=== PATIENT | male | born 1965 | race Caucasian/White ===

== ENCOUNTER → 2020-12-15 13:04 | Outpatient (BNV) | payer MEDICAID, OTHER, SELFPAY | PROVIDERS: PCP Family Medicine; Referring Provider Family Medicine; Visit Provider Internal Medicine Medical Oncology | DX: I26.99 Other pulmonary embolism without acute cor pulmonale (principal) | CPT/HCPCS: 99203; 99213; 99214 ==

== ENCOUNTER 2021-10-18 10:32 | Outpatient (REF) | payer MEDICARE, MEDICAID, SELFPAY ==
--- NOTE | ~2021-10-18 | XR_ITS ---
EXAMINATION: XR CHEST CLINICAL INFORMATION: Right sided chest pain with history of PE COMPARISON: 12/05/2017 TECHNIQUE: 2 views of the chest were obtained. FINDINGS: Lungs are hypoinflated. There is new linear atelectasis is seen in the right midlung. A subtle infiltrate in this region cannot be entirely excluded. The left lung is clear. Heart size normal. No pleural effusions. XR/XR chest 2V IMPRESSION: Right midlung atelectasis with possible subtle infiltrate.
--- NOTE | ~2021-10-18 | NM_ITS ---
EXAMINATION: PULMONARY PERFUSION STUDY CLINICAL INFORMATION: Chest pain. Follow up on pulmonary embolism. COMPARISON: No previous lung scan is available for comparison. Radiographs the chest dated 10/18/2021, the same date as this lung scan, are available for comparison. TECHNIQUE: Following the intravenous injection of 4.0 mCi Tc-99m MAA, the lungs were imaged in the anterior and posterior, left and right lateral and ICELANDIC, MCKINNEY, LPO, and RPO projections using a gamma scintillation camera. FINDINGS: No segmental perfusion defects are present. There is homogeneous distribution of activity bilaterally. There are no focal anatomic appearing perfusion defects present. NM/NM pul perfusion IMPRESSION: Normal radionuclide lung perfusion scan.
== END 2021-10-18 10:33 | disposition home or self-care (01) ==
LOC: HO.CT 10:32
PROVIDERS: Visit Provider Internal Medicine Medical Oncology
DX: R07.9 Chest pain, unspecified (principal); I26.99 Other pulmonary embolism without acute cor pulmonale
CPT/HCPCS: 71046; 78580; A9540

== ENCOUNTER 2022-12-18 10:32 | Outpatient (REF) | payer OTHER, SELFPAY ==
--- NOTE | ~2022-12-18 | MR_ITS ---
EXAMINATION: MR LUMBAR SPINE WITHOUT CONTRAST CLINICAL INFORMATION: 57-year-old with low back pain radiating to both legs. History of surgery in the remote past. COMPARISON: 03/23/2013 MRI TECHNIQUE: MRI of the lumbar spine was obtained using routine sequences without contrast. FINDINGS: Coronal Alignment: Normal. Sagittal Alignment: Normal. Lumbosacral Junction: Normal. There are 5 [id number] lumbar-type vertebral bodies. Vertebral Bodies: Stable vertebral body heights. No interval compression fractures. Disc Spaces and Endplates: Moderate disc space height loss asymmetric to the left at L4-L5 with disc desiccation, Schmorl's nodes and spondylosis similar to the previous exam. Mild disc space height loss with disc desiccation and minor spondylosis at L1-L2 progress from previous study. Mild disc space height loss and disc desiccation at L5-S1 is stable. Disc desiccation at L2-L3 and L3-L4 progressed from previous study, with development of Schmorl's nodes, particularly a prominent Schmorl's node along the inferior endplate of L3 since the previous exam, with mild degrees of spondylosis at these levels. Spinal Canal: Small fibrolipoma of the filum terminale measuring less than 2 mm stable in appearance, normal variant. Bone Marrow: Development of type I degenerative marrow signal changes along the endplates at L3-L4 since the previous study consistent with progression of discogenic degenerative changes at this level. Development of mild type I degenerative marrow signal change along the inferior endplate of L1 consistent with progression of disc degenerative change at this level as well. Type II marrow signal changes along the endplates at L4-L5 are similar to prior study. New type II marrow signal changes adjacent to a Schmorl's node along the inferior endplate of L2. Type II marrow signal changes along the inferior endplate of L5 stable in appearance. No suspicious marrow replacing process or other bone marrow edema. Conus Medullaris: Terminates at T12-L1. Morphology and signal is normal. Intradural Nerve Roots: Within normal limits. L5-S1: Broad-based central to left subarticular disc protrusion with annular fissuring similar in appearance to the previous exam but with more prominent annular fissuring on current study, impinging on the traversing left S1 nerve root again noted with no significant central canal stenosis. There is minor facet arthrosis bilaterally stable in appearance without significant neural foraminal stenosis. L4-L5: Concentric disc bulging again noted, with a more prominent superimposed central disc protrusion with flattening of the ventral dural sac centrally and asymmetric to the right progressed from previous study. Ligamentum flavum thickening again noted with moderate left-sided and kwbt-vp-cxtrooim right-sided facet arthropathy largely unchanged. There is moderate central spinal canal stenosis progressed from previous study with crowding of the intradural nerve roots and there is bilateral subarticular recess stenosis with encroachment on the traversing L5 nerve roots bilaterally progressed from previous exam. Mild right and dwzv-pj-tdtfgomx left-sided neural foraminal narrowing is noted stable in appearance. L3-L4: Mild disc bulging asymmetric to the right stable in appearance with slight flattening of the ventral dural sac. Prominent dorsal fat pad similar to prior study with qgww-us-aqbgwyvc bilateral facet arthropathy similar to previous exam. No significant canal or neuroforaminal stenosis. L2-L3: No significant disc bulge or herniation. Mild facet arthropathy bilaterally. No canal or neuroforaminal stenosis. L1-L2: No significant disc bulge or herniation. No facet arthrosis, canal or neuroforaminal stenosis. T12-L1: Tiny left paramedian disc protrusion. No facet arthrosis, canal or neuroforaminal stenosis. Paravertebral and Included Extraspinal Soft Tissues: The visualized paravertebral soft tissues and included retroperitoneal structures are unremarkable within the limitations of the exam. MR/MR lumbar spine wo con IMPRESSION: 1. Progression of discogenic degenerative changes at L2-L3 and L3-L4 since the previous exam with stable discogenic degenerative changes at L5-S1, L4-L5 and L1-L2. 2. Disc bulging and central disc herniation at L4-L5 progressed from previous exam with stable bilateral facet arthropathy and ligamentum flavum thickening with moderate central spinal canal stenosis and bilateral subarticular recess stenosis progressed from previous study with encroachment on the traversing L5 nerve roots bilaterally progressed from previous study. Mild right and nrgz-rv-cnteopzp left-sided neural foraminal stenosis stable in appearance. 3. Central to left subarticular disc protrusion at L5-S1 with more prominent annular fissuring on current study impinging on the traversing left S1 nerve root unchanged. 4. Mild disc bulging asymmetric to the right at L3-L4 stable in appearance with bilateral facet arthropathy without significant canal or neuroforaminal stenosis. There is a new prominent Schmorl's node along the inferior endplate of L3 with reactive marrow edema along the endplates at this level.
== END 2022-12-18 10:33 | disposition home or self-care (01) ==
LOC: HO.MRI 10:32
PROVIDERS: Visit Provider Emergency Medicine
DX: M54.50 Low back pain, unspecified (principal); M79.604 Pain in right leg; M79.605 Pain in left leg
CPT/HCPCS: 72148

== ENCOUNTER 2023-12-23 09:52 | Outpatient (REF) | payer MEDICARE, SELFPAY ==
[2023-12-23 12:10] LABS: Alanine Aminotransferase 47 U/L (0-40); Albumin Level 4.3 g/dL (3.5-5.0); Alkaline Phosphatase 71 U/L (39-117); Anion Gap 12 (12-20); Aspartate Amino Transferase 27 U/L (5-37); Bilirubin Total 0.7 mg/dL (0.0-1.0); Blood Urea Nitrogen 27 mg/dL (9-16); Calcium 9.7 mg/dL (8.4-10.2); Carbon Dioxide 27 mmol/L (22-29); Chloride 106 mmol/L (96-108); Cholesterol 167 mg/dL (<200); Estimated Glomerular Filt Rate 42; Glucose Random 188 mg/dL (60-115); HDL Cholesterol 33 mg/dL (>40); LDL Cholesterol Calculated 91 mg/dL (<100); Potassium 4.9 mmol/L (3.3-5.1); Sodium 140 mmol/L (135-145); Total Protein 7.8 g/dL (6.5-8.0); Triglycerides 215 mg/dL (<150); Uric Acid 10.3 mg/dL (3.4-7.0)
[2023-12-23 12:20] LABS: Prostate Specific Antigen 13.69 ng/mL (<0.05-4.0)
[2023-12-23 12:25] LABS: Creatinine Urine 119.19 mg/dL; Microalbum/Creatinine Ratio Ur 117.4 ug/mg cr (<30)
[2023-12-23 12:35] LABS: TSH reflex Free T4 2.59 uIU/mL (0.32-4.0)
[2023-12-23 12:43] LABS: HBS Num1 > 1000.00 mIU/mL (0-7.99)
[2023-12-23 12:44] LABS: HBc Num1 0.08 S/CO (0.00-0.79); HBsAGNum1 0.29 S/CO (0.00-0.99); HIV AB/AG Nonreactive (Nonreactive); HIV Num 1 0.09 S/CO (0.00-0.99); Hepatitis B Core Antibody Nonreactive (Nonreactive); Hepatitis B Surface Antigen Negative (Negative); ~Hepatitis B Surface Antibody REACTIVE (Nonreactive)
[2023-12-24 15:28] LABS: HCV Log PCR <1.18 NOT DETECTED Log IU/mL (NOT DETECTED); HepC Viral Load <15 NOT DETECTED IU/mL (NOT DETECTED)
[2023-12-25 08:57] LABS: RPR Rapid Plasma Reagin NON-REACTIVE (NON-REACTIVE)
== END 2023-12-23 09:53 | disposition home or self-care (01) ==
LOC: HO.CHCLDS 09:52
PROVIDERS: Visit Provider Registered Nurse
DX: Z00.00 Encounter for general adult medical examination without abnormal findings (principal); E11.65 Type 2 diabetes mellitus with hyperglycemia; M10.9 Gout, unspecified; R97.20 Elevated prostate specific antigen [PSA]; Z12.5 Encounter for screening for malignant neoplasm of prostate
CPT/HCPCS: 36415; 80053; 80061; 82043; 82570; 84153; 84443; 84550; 86592; 86704; 86706; 87340; 87389; 87522

== ENCOUNTER 2024-04-29 11:06 | Outpatient (REF) | payer MEDICARE, SELFPAY ==
[2024-04-29 14:00] LABS: C Reactive Protein 1.11 mg/dL (< or = 0.50)
[2024-04-29 14:19] LABS: Erythrocyte Sedimentation Rate 7 MM/HR (0-15)
[2024-05-06 12:23] LABS: Anti Nuclear Antibody Pattern Nuclear, Speckled; Anti Nuclear Antibody Screen POSITIVE (NEGATIVE); Anti Nuclear Antibody Titer 1:40 titer
== END 2024-04-29 11:07 | disposition home or self-care (01) ==
LOC: HO.HHCL 11:06
PROVIDERS: Visit Provider Registered Nurse
DX: M10.9 Gout, unspecified (principal)
CPT/HCPCS: 36415; 85652; 86038; 86039; 86140

== ENCOUNTER 2024-08-23 | Outpatient (REF) | payer MEDICARE, SELFPAY ==
--- OUTSIDE RECORDS SUMMARY | 2024-08-24 15:02 | XMS_ITS | Encounter Summary ---
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 Name Role Phone Sabine Bui Primary Care Provider [phone] Reason for Visit * Reason Onset Date Comments ER Follow-up 02/12/2023 Encounter Details Date Type Department Care Team (Late st Contact Info) Description 02/12/2023 Telephone [facility] [address] [place] [address] Sabine Bui FNP [address] [place] [address] ER Follow-up Social History Tobacco Use Types Packs/Day Years Used Date Smoking Tobacco: Never Smokeless Tobacco: Never Alcohol Use Standard Drinks/Week Comments Yes 0 (1 standard drink = 0.6 oz pur e alcohol) Ocassionally Depression Answer Date Recorded Patient Health Questionnaire-9 Score 0 12/02/2022 Depression Answer Date Recorded Patient Health Questionnaire-2 Score 0 12/02/2022 Sex and Gender Information Value Date Recorded Sex Assigned at Male 04/29/2022 10:26 AM EDT Legal Sex Male 10:26 AM EDT Gender Identity Male 04/29/2022 10:26 AM EDT Sexual Orientation Straight 04/29/2022 10 :26 AM EDT documented as of this encounter Miscellaneous Notes * Telephone Encounter - Lauren Vides RN - 02/12/2023 8:45 AM EDT Call to [facility], reports seen for leg pain on left side that was from knee and foot. Per pthad US, x-ray and was advised that had cellulitis. Given rx for abx Cefuroxime 500mg 1 tab BID. Perpt using Tylenol for pain with mild relief. Pt states also was found to have fluid in knee. Pt wants follow up today as still having pain. Agrees to visit today at 10:30am with [facility] team provider. Ptadvised to bring bottle of abx and discharge paper work. Sent to team to [facility] provider [facility]. Protocol Used: Recent Medical Visit for Illness Follow-up Call (Adult) Protocol-Based Disposition: Discuss with PCP and Callback by Nurse within 1 Hour Video visit offer not recorded Positive Triage Question: * Severe pain (e.g., excruciating, pain scale 8-10) and not improved after pain medications * All higher-acuity triage questions were negative Care Advice Discussed: * Reasons To Call Back - You become worse * Telephone Encounter - Rayna Amor - 02/12/2023 8:38 AM EDT Patient calling to report ED visit on 02/12/23 at [facility]. Seen for leg pain and swelling (left). Patient advised will forward to team nurse for follow up. Symptom: Leg Swelling - Not From Injury Outcome: Schedule an urgent appointment (within 1 hour) or talk to a nurse or provider soon Reason: Severe leg pain now The caller accepted this outcome Patient speaks [place]. documented in this encounter Plan of Treatment Upcoming Encounters Date Type Department Care Team (Late st Contact Info) Description 09/27/2024 4:00 PM EDT Office Visit [facility] [address], [place] [phone] Sabine Bui FNP [address], [place] [phone] documented as of this encounter Visit Diagnoses Not on filedocumented in this encounter Additional Health Concerns Assessment Noted Time PHQ-9 Depression Total Score: 0 12/03/19 23 10:09 AM EDT documented as of this encounter Care Teams V[employer]ator Relationship Specialty Start Date End Date Sabine Bui FNP [address] [place] [address] PCP - General Family Medicine 02/24/22 documented as of this encounter
--- OUTSIDE RECORDS SUMMARY | 2024-08-24 15:03 | XMS_ITS | Clinical Summary ---
Author Organization [employer] Address [address] [place] [address] Care Team Providers Care Guitar Maker Name Role Phone Sabine Bui ALEXANDRA Primary Care Provider [phone] Allergies No known active allergies Medications tiZANidine (Zanaflex) 2 MG tablet Take 1-2 tablets by mouth nightly as needed for muscle spasms 30 tablet 023 Active Alcohol Swabs pads Use to clean skin as needed 100 each 11 023 Active Blood Glucose Monitoring Suppl (FreeStyle Lite) w/Device kit 1 kit in the morning. 1 kit 024 Active Blood Pressure Monitor kit Check blood pressure once daily and when symptomatic. Please bring list of home blood pressure readings to appointments. 1 kit 024 Active FREESTYLE LITE test strip 1 each by Other route 3 times daily. 100 each 11 024 Active insulin glargine (Lantus SoloStar) 100 UNIT/ML penIndications:Ty pe 2 diabetes mellitus with hyperglycemia, without long-term current use of insulin ([facility]) INJECT 14 UNITS UNDER THE SKIN NIGHTLY BEFORE BED. CHECK FASTING BLOOD SUGAR READING IN THE MORNING. 3 mL 2 024 Active albuterol 108 (90 Base) MCG/ACT inhalerIndication s:Shortness of breath Inhale 2 puffs every 6 (six) hours if needed for wheezing or shortness of breath. 18 g 3 024 2024 Active Eliquis 2.5 MG tablet Take 2.5 mg by mouth 2 times daily. 024 Active atorvastatin (Lipitor) 20 MG tabletIndications :Other hyperlipidemia TAKE 1 TABLET BY MOUTH AT BEDTIME FOR CHOLESTEROL 90 tablet 1 024 Active amLODIPine (Norvasc) 5 MG tablet TAKE 1 TABLET BY MOUTH EVERY DAY IN THE MORNING 90 tablet 1 024 Active lisinopril-hydroC HLOROthiazide 20-25 MG tabletIndications :Essential hypertension TAKE 1 TABLET BY MOUTH EVERY DAY IN THE MORNING 90 tablet 1 024 Active allopurinol (Zyloprim) 100 MG tabletIndications :Gout of foot, unspecified cause, unspecified chronicity, unspecified laterality Take 0.5 tablets (50mg) by mouth daily to help reduce gout flares 45 tablet 1 024 Active acetaminophen (Tylenol Extra Strength) 500 MG tabletIndications :Gout of foot, unspecified cause, unspecified chronicity, unspecified laterality Take 1-2 pills by oral route every 8 hours as needed for pain 100 tablet 1 024 Active SITagliptin (Januvia) 50 MG tabletIndications :Type 2 diabetes mellitus with hyperglycemia, without long-term current use of insulin (CMS/HCC) Take 1 tablet (50 mg) by mouth Once per day. 90 tablet 1 024 2024 Active Dulaglutide 1.5 MG/0.5ML solution auto-injectorIndi cations:Type 2 diabetes mellitus with hyperglycemia, without long-term current use of insulin (CMS/HCC) Inject 0.5 mL (1.5 mg) under the skin 1 (one) time per week. 2 mL 3 024 Active metFORMIN XR (Glucophage-XR) 500 MG 24 hr tablet TAKE 1 TABLET BY MOUTH WITH EVENING MEAL. DO NOT CRUSH, CHEW, OR SPLIT. 90 tablet 1 024 Active omeprazole (PriLOSEC) [address] capsule TAKE 1 CAPSULE BY MOUTH EVERY DAY BEFORE BREAKFAST. DONT CRUSH OR CHEW 90 capsule 1 025 Active tiZANidine (Zanaflex) 2 MG tabletIndications :Other acute back pain Take 1 tablet (2 mg) by mouth every 8 (eight) hours if needed for muscle spasms for up to 10 days. 30 tablet 025 2024 Active omeprazole (PriLOSEC) [address] capsule TAKE 1 CAPSULE BY MOUTH EVERY DAY BEFORE BREAKFAST DONT CRUSH OR CHEW 90 capsule 1 024 2024 Discontinued Active Problems Problem Noted Date Diagnosed Date Elevated PSA 04/26/2024 Overview (04/26/2024): Lab Results Component Value Date PSA 13.69 (H) 12/23/2023 - Referred to Urology December 2023 Assessment & Plan (04/26/2024 6:23 PM EDT): - Missed initial appt, encouraged to call and reschedule History of chest pain 12/24/2023 Overview (12/24/2023): 10/03/23 - Stress Test completed at [facility]. Impression: Equivocal exercise stress test in the setting of EKG changes. No chest pain and no diagnostic ischemic EKG changes. No arrhythmias. Recommend further testing with nuclear imaging. Pt scheduled for Cards consult December 2023 ED precautions Other proteinuria 02/20/2023 Routine health maintenance 11/05/2022 Assessment & Plan (12/24/2023 3:01 PM EDT): Routine Health Maintenance Optometry: referred to [facility] 12/22/23 Dental: encouraged to establish with dental home Last PE: 12/22/23 Routine Cancer Screening Colon CA: referred for colonoscopy on 12/22/23 PSA: hx elevated PSA with possibility of referral to urology. Repeat PSA, refer to Urology if elevated Assessment & Plan (11/05/2022 6:26 PM EDT): Routine Health Maintenance Optometry: discuss at follow up Dental: discuss at follow up COVID vaccination status: declined Routine Cancer Screening Colon CA: discuss at follow up, previously provided FIT testing PSA: hx elevated PSA with possibility of referral to urology. Discuss at follow up. History of alcohol abuse 11/01/2022 Polyneuropathy due to type 2 diabetes mellitus 0 11/01/2022 Low back pain radiating to both legs 10/02/2022 Assessment & Plan (11/05/2022 6:28 PM EDT): ?? Acute on chronic low back pain ?? Hx of lumbar spinal surgery in [place], scar well healed ?? MRI of lumbar spine ordered 10/02/22, pending ?? Referral to Spine and Sports for further eval ?? ED precautions reviewed Pulmonary embolism 12/11/2021 Overview (12/22/2023): Date of PE: August 2020 Following with [facility] Last consult note: 10/09/23: Plan to cont on Eliquis 2.5mg BID Hypercoagulable workup negative Assessment & Plan (11/05/2022 6:17 PM EDT): ?? Following [place] [facility], last consult appt Mar 2022. Decreased Eliquis to 2.5mg BID. Plan for follow up appt approx September 2022 to discuss discontinuation of anticoagulation. ?? Encouraged pt to schedule follow up visit with [facility] as planned. Stage 3b chronic kidney disease 01/28/2021 Assessment & Plan (12/22/2023 8:40 AM EDT): Following with [facility] Pt aware of need to avoid NSAIDs and maintain good hydration status Assessment & Plan (09/28/2023 10:28 AM EDT): Following with [facility] Pt aware of need to avoid NSAIDs and maintain good hydration status Assessment & Plan (04/08/2023 9:23 AM EDT): ?? Following with [facility] (last consult appt in January 2023) ?? Check CMP & microalbumin prior to appt ?? Pt aware of need to avoid NSAIDs and maintain good hydration status Assessment & Plan (11/05/2022 6:18 PM EDT): ?? Referred to Nephrology on 10/02/22 during [facility] visit. Reports upcoming appt February 27, 2023 to establish care ?? Check CMP & microalbumin prior to appt ?? Pt aware of need to avoid NSAIDs and maintain good hydration status Gout 01/28/2021 Assessment & Plan (04/26/2024 6:31 PM EDT): -Pt reports > 2 flares/year, which indicates benefit of ULT -Given dosing adjustments with hx CKD, pt currently prescribed allopurinol 50mg daily -Considerations: hydrochlorothiazide which may increase frequency of flares -Acute flares tx successfully with prednisone -Rheum consult Jan 2024 ([facility]). Rec titrating allopurinol upwards in 50mg increments every 3-4 weeks with goal serum uric acid less than 6.5 -Pt reports experiencing symptoms that indicate start of flare. Will send rx for prednisone, but given frequency of symptoms and atypical exam presentation, will also check labs including: MUNIR, CRP, sed rate. Assessment & Plan (12/24/2023 2:52 PM EDT): -Pt reports > 2 flares/year, which indicates benefit of ULT -Given dosing adjustments with hx CKD, pt currently prescribed allopurinol 50mg daily -Considerations: hydrochlorothiazide which may increase frequency of flares -Acute flares tx successfully with prednisone -Referral to Rheum placed 12/24/23 Assessment & Plan (09/28/2023 10:38 AM EDT): Images from the original note were not included. -Pt reports > 2 flares/year, which indicates benefit of ULT -ULT Considerations: Dosing adjustments may be necessary with hx of CKD, see table from UTD below Pt prescribed hydrochlorothiazide, which can raise uric acid levels in the blood and contribute to increased frequency of flares Reviewed dietary modifications with pt Plan: consider initiatin of ULT, using prednisone during acute flares Assessment & Plan (04/08/2023 9:22 AM EDT): Images from the original note were not included. -Pt reports > 2 flares/year, which indicates benefit of ULT -ULT Considerations: ?? Dosing adjustments may be necessary with hx of CKD, see table from UTD below ?? Pt prescribed hydrochlorothiazide, which can raise uric acid levels in the blood and contribute to increased frequency of flares ?? Reviewed dietary modifications with pt Plan: discuss med management and initiation of ULT with nephrology team. Essential hypertension 08/06/2018 Assessment & Plan (12/24/2023 3:08 PM EDT): BP goal < 140/90 mmHg Continue with lisinopril-hydrochlorothiazide 20-25mg daily Amlodipine 5mg daily Encouraged to continue with lifestyle interventions such as daily physical activity (goal 150mins weekly) and low salt diet ED precautions reviewed Assessment & Plan (09/28/2023 10:34 AM EDT): BP goal < 140/90 mmHg Continue with lisinopril-hydrochlorothiazide 20-25mg daily Amlodipine 5mg daily Encouraged to continue with lifestyle interventions such as daily physical activity (goal 150mins weekly) and low salt diet ED precautions reviewed Assessment & Plan (09/02/2023 12:53 AM EST): Uncontrolled: Patient has history of uncontrolled HTN. His blood pressure today was elevated at 166/100. Increase Lisinopril dosage and added Amlodipine. Encouraged to continue with lifestyle intervention such as daily physical activity and low salt diet. Advised to monitor BP and bring reading during next F/U. Future Appointments Date Time Provider Department Center 09/11/2023 1:00 PM [facility] DAVID NURSE [facility] 09/26/2023 11:15 AM ALEXANDRA Tejada [facility] Assessment & Plan (03/21/2023 5:42 AM EDT): ?? BP goal < 140/90 mmHg ?? Home BP log averages 130/80-90mmHg ?? Continue with lisinopril-hydrochlorothiazide 20-12.5mg daily ?? Encouraged to continue with lifestyle interventions such as daily physical activity (goal 150mins weekly) and low salt diet ?? ED precautions reviewed Assessment & Plan (11/05/2022 6:19 PM EDT): ?? BP goal < 140/90 mmHg ?? Home BP log averages 130/80-90mmHg ?? Continue with lisinopril-hydrochlorothiazide 20-12.5mg daily ?? Encouraged to continue with lifestyle interventions such as daily physical activity (goal 150mins weekly) and low salt diet ?? ED precautions reviewed Type 2 diabetes mellitus 12/03/2017 Overview (04/26/2024): Lab Results Component Value Date HGBA1C 10.1 (A) 04/26/2024 HGBA1C 9.4 (A) 12/22/2023 HGBA1C 6.8 (H) 12/11/2021 HGBA1C 8.4 (H) 01/24/2021 A1c goal </= 7.0%. above goal Continues with Trulicity weekly (decrease to 1.5mg subcutaneous weekly due to limited availability) Continue with Metformin 500mg BID (decreased previously d/t CKD) START Januvia 50mg daily Increase lantus to 14 units nightly. Reviewed med use and safety. 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 In future, goal to transition from lantus to SGLT2i Highly encouraged use of lifestyle interventions, pt reports currently ordering most food while driving, little food prep. Assessment & Plan (09/02/2023 12:51 AM EST): Lab Results Component Value Date HGBA1C 7.9 (A) 02/12/2023 Uncontrolled. Assessment & Plan (03/21/2023 5:50 AM EDT): Improvement in BG readings s/p initiation of lantus Continue with current regimen Lab Results Component Value Date HGBA1C 7.9 (A) 02/12/2023 Assessment & Plan (12/04/2022 5:28 PM EDT): Improvement in BG readings s/p initiation of lantus Continue with current regimen Assessment & Plan (11/05/2022 6:24 PM EDT): Lab Results Component Value Date HGBA1C 11.0 (A) 10/02/2022 ?? A1c goal </= 7.0%. Currently above goal ?? Continue with Trulicity 3mg subcutaneous weekly ?? Continue with Metformin 500mg BID (decreaed previously d/t CKD) ?? 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 ?? A1c currently >9%, therefore would not reconsider SGLT2 inhibitor until blood sugar better controlled. ?? Start lantus 10 units nightly. Reviewed med use and safety. ?? Goal FBG 90-130 ?? Plan to hopefully DC lantus and start SGLT2 after improved glycemic control ?? Highly encouraged use of lifestyle interventions, pt reports currently ordering most food while driving, little food prep. ?? ED precautions reviewed Hyperlipidemia 03/16/2013 Overview (04/26/2024): Lab Results Component Value Date CHOL 167 12/23/2023 TRIG 215 (H) 12/23/2023 HDL 33 (L) 12/23/2023 LDLCHOLCAL 91 12/23/2023 -continue atorvastatin 20mg nightly -continue lifestyle modification Intervertebral disc disorder 03/16/2013 Microalbuminuria 03/16/2013 Resolved Problems Problem Noted Date Diagnosed Date Resolved Date Chronic kidney disease 02/20/202312/21 Overview (12/22/2023): Followed by [facility] Assessment & Plan (12/22/2023 8:39 AM EDT): -Continues lisinopril-hydrochlorothiazide 20-25mg daily -Started on Vit D 2000 units daily Edema of lower extremity 12/03/201703/2023 Encounters Date Type Department Care Team Description 08/24/2024 Telephone [facility] [address] [place] [phone] Toya Marinelli MD wrong specimen received 08/23/2024 5:20 PM EST Office Visit [facility] [address] [place], [place] [phone] Toya Marinelli MD Other acute back pain (Primary Dx); Type 2 diabetes mellitus with hyperglycemia, without long-term current use of insulin ([facility]) 08/23/2024 Telephone [facility] [address] [place] [address] Sabine Bui FNP Nurse Triage 08/08/2024 Orders Only [facility] [address] [place] [phone] Nohemy Stephens MD Type 2 diabetes mellitus with hyperglycemia, without long-term current use of insulin ([facility]) (Primary Dx) 07/30/2024 Telephone [facility] [address] [place] [address] Gertrude Wall PharmD 07/29/2024 Refill [facility] [address] [place] [address] Sabine Bui FNP 07/20/2024 Telephone [facility] [address] [place] [address] Sabine Bui FNP June06/19/2024 Refill [facility] [address] [place] [phone] Sabine Bui FNP 06/10/2024 Refill [facility] [address] [place] [address] Sabine Bui FNP Type 2 diabetes mellitus with hyperglycemia, without long-term current use of insulin ([facility]) 06/07/2024 Refill [facility] [address] [place] [phone] Sabine Bui FNP from Last 3 Months Immunizations Name Administration Dates Next Due Hep B, adult 12/11/2021,02/21/2021 Influenza, Split (incl. purified surface antigen ) 06/29/2013 Pneumococcal Polysaccharide PPSV23 02/27/2015 TD (adult), 2 Lf tetanus tox oid, preservative free, adsorbed 03/31/2018 Tdap 06/29/2013 Family History Medical History Relation Name Comments Heart attack Brother 1 Diabetes Brother 2 heart surgery Brother 2 Breast cancer Mother Relation Name Status Comments Brother 1 Brother 2 Alive Mother Social History Tobacco Use Types Packs/Day Years Used Date Smoking Tobacco: Never Smokeless Tobacco: Never Tobacco Cessation:Counseling Given: Not Answered Alcohol Use Standard Drinks/Week Comments Yes 0 (1 standard drink = 0.6 oz pur e alcohol) Ocassionally Alcohol Answer Date Recorded Frequency of Alcohol Consumption Not on file 12/22/2023 Average Number of Drinks Not on file 024 Frequency of Binge Drinking Not on file 11/29 Score 0 12/22/2023 Depression Answer Date Recorded Patient Health Questionnaire-9 Score 0 12/02/2022 Housing Stability Answer Date Recorded What is your housing situation today? I have anna lua 12/22/[address] you li ve. Do you have problems with any of the following? None of the above 12/22/2023 Food Insecurity Answer Date Recorded Within the past 12 months, y ou worried that your food would run out before you got money to buy more: Never True 04/30/2023 Within the past 12 months,th e food you bought just didn't last and you didn't have enough money to get more: Never True 06/2022 Transportation Answer Date Recorded In the past 12 months, has l ack of transportation kept you from medical appts, meetings, work or from getting things needed for daily living? No 04/30/2023 Utilities Answer Date Recorded In the past 12 months, has t he electric, gas, oil or water company threatened to shut off services in your home? No 04/30/2023 Depression Answer Date Recorded Patient Health Questionnaire-2 Score 0 12/02/2022 Internet Access Answer Date Recorded Internet Access Q1 Yes 03/01/2024 Internet Access Q2 Not on file 03/01/2024 Sex and Gender Information Value Date Recorded Sex Assigned at Male 04/29/2022 10:26 AM EDT Legal Sex Male 10:26 AM EDT Gender Identity Male 04/29/2022 10:26 AM EDT Sexual Orientation Straight 04/29/2022 10 :26 AM EDT Last Filed Vital Signs Vital Sign Reading Time Taken Comments Blood Pressure 118/70 08/23/2024 5:16 PM EST Pulse 66 08/23/2024 5:16 PM EST Temperature 36.4 ??C (97.6 ??F) 08/23/2024 5:16 PM ES T Respiratory Rate 21 08/23/2024 5:16 PM EST Oxygen Saturation 99% 08/23/2024 5:16 PM EST Inhaled Oxygen Concentration - - Weight 106 kg (233 lb 8 oz) 08/23/2024 5:[address] Height 180.3 cm (5' 11 ) 08/23/2024 5:16 PM EST Body Mass Index 32.57 08/23/2024 5:16 PM EST Plan of Treatment Upcoming Encounters Date Type Department Care Team (Late st Contact Info) Description 09/27/2024 4:00 PM EDT Office Visit [facility] [address] [place] [address] Sabine Bui, GERIATRICS PHYSICIAN [address] [place] [address] Health Maintenance Due Date Last Done Comments CT Colonography 1964 Colonoscopy 1964 Colorectal Cancer Screening 1964 FIT DNA/Cologuard 1964 FIT 1964 FOBT 1964 Sigmoidoscopy 1964 Eye Exam 1974 Zoster Vaccines (1 of 2) 2014 Pneumococcal Vaccine: 50+ Years (2 of 2 - PCV) 02/28/2016 02/27/2015 Depression Screening 12/03/2023 12/02/2022, 12/03/19 23 Diabetes: Foot Exam 02/13/2024 02/12/2023 COVID-19 Vaccine ( season) 2024 03/27/2021, 03/06/2021 Influenza Vaccine (#1) 2024 06/29/2013 RSV Patients and Patients Aged 60 years or older (1 - Risk 60-74 years 1-dose series) 2024 Diabetes: Hemoglobin A1C 11/20/2024 025, 04/26/2024, 12/22/2023, Additional history exists Alcohol/Substance Use Screening 12/21/2024 12/22/2023 SDOH Screening 12/21/2024 12/22/2023 Diabetes: Urine Protein Screening 12/22/2024 12/23/2023, 02/20/2023, 11/05/2022, Additional history exists Lipid Panel 12/22/2024 12/23/2023, 01/24/2021 Tobacco Screening 08/23/2025 08/23/2024 DTaP/Tdap/Td Vaccines (3 - Td or Tdap) 03/31/2028 03/31/2018, 06/29/2013 Hepatitis B Vaccines Discontinued 12/11/2021, 02/22/20 21 HIV Screening Completed 12/23/2023 Hepatitis C Screening Completed 12/23/2023 HIB Vaccines Aged Out No longer eligi ble based on patient's age to complete this topic HPV Vaccines Aged Out No longer eligi ble based on patient's age to complete this topic Hepatitis A Vaccines Aged Out No long er eligible based on patient's age to complete this topic IPV Vaccines Aged Out No longer eligi ble based on patient's age to complete this topic Meningococcal Vaccine Aged Out No rachel manoj eligible based on patient's age to complete this topic RSV under 20 months Aged Out No longe r eligible based on patient's age to complete this topic Rotavirus Vaccines Aged Out No longer eligible based on patient's age to complete this topic Procedures Procedure Name Priority Date/Time Associated Diagnosis Comments POCT URINALYSIS DIPSTICK Routine 08/23/2024 6:39 PM EST Other acute back pain POCT GLYCATED HEMOGLOBIN, TOTAL Routine 08/23/2024 6:36 PM EST Type 2 diabetes mellitus with hyperglycemia, without long-term current use of insulin ([facility]) POCT GLUCOSE Routine 08/23/2024 6:32 PM EST Other acute back pain ALBUMIN, RANDOM URINE W/CREATININE Routine 12/23/2023 10:00 AM EDT Type 2 diabetes mellitus with hyperglycemia, without long-term current use of insulin ([facility]) HEPATITIS C VIRAL RNA, QUANTITATIVE, REAL-TIME PCR Routine 12/23/2023 9:55 AM EDT Encounter for routine history and physical examination of adult HIV 1/2 ANTIGEN/ANTIBODY, FOURTH GENERATION W/RFL Routine 12/23/2023 9:55 AM EDT Encounter for routine history and physical examination of adult LIPID PANEL, STANDARD Routine 12/23/2023 9:55 AM EDT Type 2 diabetes mellitus with hyperglycemia, without long-term current use of insulin ([facility]) from Last 3 Months or Most Recently Relevant to Health Maintenance Results * POCT Urinalysis (08/23/2024 6:39 PM EST) Color, UA Yellow Clarity, UA Cloudy Glucose, UA Negative Bilirubin, UA Trace Comment:Small Ketones, UA Positive Comment:Trace Spec Grav, UA 1.030 Blood, UA Negative Negative, None Detected pH, UA 5.5 Protein, UA Trace Comment:100mg Urobilinogen, UA 0.2 Leukocytes, UA Negative Negative, Rare, Trace Nitrite, UA Negative Negative, None Detected QC Media Lot # [id number] Lot# Expiration Date Urine 08/23/2024 6:39 PM EST Toya Marinelli MD POINT OF CARE TEST ENTER/ED IT ORDERABLES Final Result * (ABNORMAL) POCT HGB A1C (08/23/2024 6:36 PM EST) Hemoglobin A1C 9.4(A) 4.0 - 6.0 % QC Media Lot # [id number] Lot# Expiration Date Blood 08/23/2024 6:36 PM EST Toya Marinelli MD POINT OF CARE TEST ENTER/ED IT ORDERABLES Final Result * (ABNORMAL) POCT Glucose (08/23/2024 6:32 PM EST) Glucose Blood, POC 218(A) 60 - 200 mg/dL QC Media Lot # [id number] Lot# Expiration Date Blood Capillary blood specimen / Unknown 08/23/2024 6:32 PM EST Toya Marinelli MD POINT OF CARE TEST ENTER/ED IT ORDERABLES Final Result * (ABNORMAL) Albumin, Random Urine W/Creatinine (12/23/2023 10:00 AM EDT) Creatinine, Urine 119.19 mg/dL [facility] Microalbumin Urine 140.0 mg/L [facility] Microalbum Creatinine Ratio Ur 117.4(H) <30 ug/mg cr [facility] Comment:Albumin/Creatinine R atio Reference Ranges: Normal: < 30 ug/mg creatinine Microalbuminuria: 30 - 300 ug/mg creatinineClinical Albuminuria: > 300 ug/mg creatinine Urine (Urine, Random) 12/23/2023 10:00 AM EDT 12/23/2023 11:21 AM EDT Sabine Bui GERIATRICS PHYSICIAN LAB URINE ORDERABLES Final Res ult Performing Organization Address [facility] de Phone Number [facility] [address] [place] [address] [phone] * Hepatitis C Viral RNA, Quantitative, Real-Time PCR (12/23/2023 9:55 AM EDT) Hepatitis C Viral Load <15 NOT DETECTED NOT DETECTED IU/mL [facility] HCV Log PCR <1.18 NOT DETECTED NOT DETECTED Log IU/mL [facility] Comment:For additional infor manpreet, please refer tohttp://education.MetaMaterials/faq/EHK53r1(This link is being provided for informational/educational purposes only.)THIS TEST WAS PERFORMED AT:[facility] [place] [id number] NAZARIO MD Blood 12/23/2023 9:55 AM EDT 12/23/2023 11:20 AM EDT Sabine [facility] [facility] GERIATR[facility] PHYSICIAN LAB BLOOD ORDERABLES Final Res ult Performing Organization Address [facility] Co de Phone Number [facility] [address] [place] [phone] * HIV-1/2 Antigen and Antibodies, Fourth Generation, with Reflexes (12/23/2023 9:55 AM EDT) HIV AB/AG Nonreactive Nonreactive [facility] Comment:HIV-1 p24 Ag and/or HIV-1/HIV-2 Ab not detected.A test result that is nonreactive does not exclude thepossibility of exposure to or infection with HIV-1 and/orHIV-2. Nonreactive results in this assay for individualswith prior exposure to HIV-1 and/or HIV-2 may be due toantigen and antibody levels that are below the limit ofdetection of this assay.The [employer] HIV Ag/Ab Combo assay result andsupplemental assay results should be interpreted inconjunction with the patient's clinical presentation,history and other laboratory results. If the results areinconsistent with clinical evidence, additional testing issuggested to confirm the result. Blood Venous blood specimen / Unknown 12/23/2023 9:55 AM EDT 12/23/2023 11:20 AM EDT us Sabine Bui GERIATRICS PHYSICIAN LAB BLOOD ORDERABLES Final Res ult [facility] [address] [place] [address] [phone] * (ABNORMAL) Lipid Panel, Standard (12/23/2023 9:55 AM EDT) Triglycerides 215(H) <150 mg/dL [facility] Comment:Desirable Triglyceri de: less than 150 mg/dLBorderline High Triglyceride 150-199 mg/dLHigh Triglyceride: 200-499 mg/dLVery High Triglyceride: greater than or equal to 5OO mg/dL Cholesterol 167 <200 mg/dL [facility] Comment:Desirable Cholestero l: less than 200 mg/dLBorderline High Cholesterol: 200-239 mg/dLHigh Cholesterol: greater than 239 mg/dL LDL Cholesterol Calculated 91 <100 mg/dL [facility] Comment:Desirable LDL: less than 100 mg/dLNear Optimal/Above Optimal LDL: 110- 129 mg/dLBorderline High LDL: 130-159 mg/dLHigh LDL: 160-189 mg/dLVery High LDL: greater than or equal to 190 mg/dL HDL Cholesterol 33(L) >40 mg/dL [facility] Comment:Desirable HDL: great er than 40 mg/dL Note: This HDL assay may give artificially low results in patients with liver disease. Blood Venous blood specimen / Unknown 12/23/2023 9:55 AM EDT 12/23/2023 11:20 AM EDT us Sabine Bui GERIATRICS PHYSICIAN LAB BLOOD ORDERABLES Final Res ult [facility] [address] [place] [address] [phone] from Last 3 Months or Most Recently Relevant to Health Maintenance Insurance [facility] Care Teams Guitar Maker Relationship Specialty Start Date End Date Sabine Bui FNP [address] [place] [address] PCP - General Family Medicine 02/24/22
--- OUTSIDE RECORDS SUMMARY | 2024-08-24 15:03 | XMS_ITS | Encounter Summary ---
Author Organization [employer] Address [address] [facility] 7t [place] [address] Care Team Providers Care Mechatronics Technician Name Role Phone [facility] Sabine ALEXANDRA Primary Care Provider [phone] Reason for Visit * Reason Comments Back Pain Encounter Details Date Type Department Care Team ([facility] st Contact Info) Description 08/23/2024 5:20 PM EST Office Visit [facility] [address] [place] [address] Toya Marinelli MD [address] [place] [address] Other acute back pain (Primary Dx); Type 2 diabetes mellitus with hyperglycemia, without long-term current use of insulin ([facility]) Social History Tobacco Use Types Packs/Day Years [...] AM EDT documented as of this encounter Last Filed Vital Signs Vital Sign Reading [...] Mass Index 32.57 08/23/2024 5:16 PM EST documented in this encounter Progress Notes * Toya Marinelli MD - 08/23/2024 5:20 PM EST Subjective Patient ID: Davis Redd is a 59 y.o. male who presents for Back Pain. Back Pain The current episode started in the past 7 days. The problem occurs daily. Pain location: b/l Flank.The quality of the pain is described as aching. The pain is at a severity of 4/10. The pain is mild. The pain is The same all the time. The symptoms are aggravated by bending. Pertinent negatives include no abdominal pain, bladder incontinence, bowel incontinence, chest pain, dysuria, fever, headaches, leg pain, numbness, paresis, paresthesias, pelvic pain, perianal numbness, tingling, weakness or weight loss. Note from triage reviewed: States that he has been having pain on both sides of back where his kidneys are and his blood sugars have been high due to being on Prednisone. Pt. Has HX. Of Kidney Disease and also has Diabetes. Pt. Uses the Prednisone when he gets swelling and pain in legs. Blood sugar this am was 180 and the other day Pt. States blood sugar was feeling much higher but pt. Didn't check it and another sx. He gets when his sugar is high is increased frequency of urination. Pt. Denies blood in urine. Pt wants urine checked and wants to be seen. Pt is mostly concerned about his kidneys. Denies any recent fall. Review of Systems Constitutional: Negative for fever and weight loss. Cardiovascular: Negative for chest pain. Gastrointestinal: Negative for abdominal pain and bowel incontinence. Genitourinary: Negative for bladder incontinence, dysuria and pelvic pain. Musculoskeletal: Positive for back pain. Neurological: Negative for tingling, weakness, numbness, headaches and paresthesias. Objective BP 118/70 (BP Location: Right arm, Patient Position: Sitting, BP Cuff Size: Adult) Pulse 66 Temp 97.6 ??F (36.4 ??C) (Oral) Resp 21 Ht 5' 11 (1.803 m) Wt 233 lb 8 oz (106 kg) SpO2 99% BMI 32.57 kg/m?? Physical Exam Constitutional: General: He is not in acute distress. Appearance: Normal appearance. He is not ill-appearing, toxic-appearing or diaphoretic. Pulmonary: Effort: Pulmonary effort is normal. Musculoskeletal: Cervical back: Spasms and tenderness present. Neurological: Mental Status: He is alert. Assessment/Plan Diagnoses and all orders for this visit: Other acute back pain Comments: Advised to increase fluid intake Tizanidine prescribed Moist heat to the area Most likely due to muscle spasm. Orders: - tiZANidine (Zanaflex) 2 MG tablet; Take 1 tablet (2 mg) by mouth every 8 (eight) hours if needed for muscle spasms for up to 10 days. - Basic Metabolic Panel; Future Type 2 diabetes mellitus with hyperglycemia, without long-term current use of insulin ([facility]) Comments: Uncontrolled Low carb diet further management deferred to PCP. documented in this encounter Miscellaneous Notes * Addendum Note - Mikey Funes MA - 08/23/2024 5:20 PM ESTAddended by: MIKEY FUNES on: 08/23/2024 06:26 PM Modules accepted: Orders * Addendum Note - Mikey Funes MA - 08/23/2024 5:20 PM ESTAddended by: MIKEY FUNES on: 08/23/2024 06:36 PM Modules accepted: Orders documented in this encounter Plan of Treatment Upcoming Encounters Date Type Department Care Team (Late st Contact Info) Description 09/27/2024 4:00 PM EDT Office Visit [facility] [address] [place] [address] Sabine Bui, CRITICAL CARE NURSE SPECIALIST [address] [place] [address] Scheduled Orders Name Type Priority Associated Diagnoses Orde r Schedule Basic Metabolic Panel Lab Routine Other acute back pain Expected: 08/23/2024 (Approximate), Expires: 08/23/2025 POCT INR Point of Care Testing Routine Other acute back pain Ordered: 08/23/2024 Urine Protein, Total, Random without Creatinine Lab Routine Other acute back pain Expected: 08/23/2024 (Approximate), Expires: 08/23/2025 documented as of this encounter Procedures Procedure Name Priority Date/Time Associated Diagnosis Comments POCT URINALYSIS DIPSTICK Routine 08/23/2024 6:39 PM EST Other acute back pain POCT GLYCATED HEMOGLOBIN, TOTAL Routine 08/23/2024 6:36 PM EST Type 2 diabetes mellitus with hyperglycemia, without long-term current use of insulin ([facility]) POCT GLUCOSE Routine 08/23/2024 6:32 PM EST Other acute back pain documented in this encounter Results * POCT Urinalysis (08/23/2024 6:39 PM [...] CARE TEST ENTER/ED IT ORDERABLES Final Result documented in this encounter Visit Diagnoses Diagnosis Other acute back pain- Primary Type 2 diabetes mellitus with hyperglycemia, without long-term current use of insulin ([facility]) documented in this encounter Additional Health Concerns Assessment Noted Time PHQ-9 Depression Total Score: 0 12/03/19 23 10:09 AM EDT documented as of this encounter Care Teams Mechatronics Technician Relationship Specialty Start Date End Date Sabine Bui FNP [address] [place] [address] PCP - General Family Medicine 02/24/22 documented as of this encounter
--- OUTSIDE RECORDS SUMMARY | 2024-08-24 15:03 | XMS_ITS | Encounter Summary ---
Author Organization [employer] Address [address] [facility] 7 [place] [address] Care Team Providers Care Breakfast Host Name Role Phone Sabine Bui Primary Care Provider [phone] Reason for Visit * Reason Onset Date Comments Nurse Triage 08/23/2024 Encounter Details Date Type Department Care Team ([facility] st Contact Info) Description 08/23/2024 Telephone [facility] MEDICINE [address] [place] [address] Sabine Bui FNP [address] [place] [address] Nurse Triage Social History Tobacco Use Types Packs/Day Years [...] encounter Miscellaneous Notes * Telephone Encounter - Nighat Ham RN - 08/23/2024 4:06 PM EST Called pt. Via S patient account analyst [phone] Alanis. No answer. Weigh Tank Operator left message for pt. To call back [facility] nurses at [phone]. Weigh Tank Operator called pt. Back x2. Pt. States that he has been having pain on both sides of back where his kidneys are and his blood sugars have been high due to being on Prednisone. Pt. Has HX. Of Kidney Disease and also has Diabetes. Pt. Uses the Prednisone when he gets s welling and pain in legs. Blood sugar this am was 180 and the other day Pt. States blood sugar wasfeeling much higher but pt. Didn't check it and another sx. He gets when his sugar is high is increased frequency of urination. Pt. Denies blood in urine. Pt wants urine checked and wants to be seen. Advised that [facility] walk in is open until 730pm tonight. Pt states he will arrive around 530pm. Protocol Used: Flank Pain (Adult) Protocol-Based Disposition: See in Office or Video Visit Today- Pt. Will go to [facility] walk in. Video visit offer not recorded Positive Triage Questions: * Moderate pain (e.g., interferes with normal activities or awakens from sleep) * Diabetes mellitus or weak immune system (e.g., HIV positive, cancer chemo, splenectomy, organ transplant, chronic steroids) (Exception: Mild pain that is only present with movement.) * Patient wants to be seen * All higher-acuity triage questions were negative * Telephone Encounter - Neda Craig - 08/23/2024 4:03 PM EST Symptom: Abdominal Pain - Male (Kidney pain) Outcome: Schedule an urgent appointment (within 4 hours) or talk to a nurse or provider soon Reason: Started within the past 3 days The caller accepted this outcome. [phone] (south korean) documented in this encounter Plan of Treatment Upcoming Encounters Date Type Department Care Team (Late st Contact Info) Description 09/27/2024 4:00 PM EDT Office Visit [facility] [address] [place] [address] Sabine Bui FNP [address] [place] [address] documented as of this encounter Visit Diagnoses Not on filedocumented in this encounter Additional Health Concerns Assessment Noted Time PHQ-9 Depression Total Score: 0 12/03/19 23 10:09 AM EDT documented as of this encounter Care Teams Breakfast Host Relationship Specialty Start Date End Date Sabine Bui FNP [address] [place] [address] PCP - General Family Medicine 02/24/22 documented as of this encounter
--- OUTSIDE RECORDS SUMMARY | 2024-08-24 15:03 | XMS_ITS | Encounter Summary ---
Author Organization [employer] Address [address] [facility] 7t [place] [address] Care Team Providers Care After School Coordinator Name Role Phone Sabine Bui Primary Care Provider [phone] Reason for Visit * Reason Comments Med Change Request Encounter Details Date Type Department Care Team ([facility] Contact Info) Description 10/16/2022 Refill [facility] [address] [place], [place] [phone] Mynor Ventura MD [address] [place] [address] Social History Tobacco Use Types Packs/Day Years Used Date Smoking Tobacco: Never Smokeless Tobacco: Never Sex and Gender Information Value Date Recorded Sex Assigned at Male 04/29/2022 10:26 AM EDT Legal Sex Male 10:26 AM EDT Gender Identity Male 04/29/2022 10:26 AM EDT Sexual Orientation Straight 04/29/2022 10 :26 AM EDT COVID-19 Exposure Response Date Recorded In the last 10 days, have yo u been in contact with someone who was confirmed or suspected to have Coronavirus/COVID-19? No / Unsure 10/02/2022 1:14 PM EDT documented as of this encounter Plan of Treatment Upcoming Encounters Date Type Department Care Team (Late Contact Info) Description 09/27/2024 4:00 PM EDT Office Visit [facility] [address] [place], [place] [phone] Sabine Bui FNP [address] [place] [address] documented as of this encounter Visit Diagnoses Not on filedocumented in this encounter Care Teams After School Coordinator Relationship Specialty Start Date End Date Sabine Bui FNP [address] [place] [address] PCP - General Family Medicine 02/24/22 documented as of this encounter
--- OUTSIDE RECORDS SUMMARY | 2024-08-24 15:03 | XMS_ITS | Encounter Summary ---
Author Organization [facility] Address [address] [place] [address] Phone Care Team Providers Care Cutter Tender Name Role Phone Mynor Ventura MD Primary Care Provider [phone] Encounter Details Date Type Department Care Team (Late st Contact Info) Description 12/18/2021 Documentation Only [facility], [address] [place] [address] Yamile Pierson, RN Social History Tobacco Use Types Packs/Day Years Used Date Smoking Tobacco: Never Alcohol Use Standard Drinks/Week Comments Yes 0 (1 standard drink = 0.6 oz pure alcohol) Alcoholic Drinks/day: 1-2 drinks per day Sex and Gender Information Value Date Recorded Sex Assigned at Not on file Legal Sex Male 4:30 PM EST Gender Identity Not on file Sexual Orientation Not on file documented as of this encounter Plan of Treatment Not on file documented as of this encounter Visit Diagnoses Not on filedocumented in this encounter Care Teams Cutter Tender Relationship Specialty Start Date End Date Mynor Ventura MD [address] [place] [phone] PCP - General Emergency Medicine 10/31/22 documented as of this encounter
--- OUTSIDE RECORDS SUMMARY | 2024-08-24 15:03 | XMS_ITS | Encounter Summary ---
Author Organization [employer] Address [address] [place] [address] 7t [place] [address] Care Team Providers Care Straight Slicing Machine Operator Name Role Phone Sabine Bui Primary Care Provider [phone] Reason for Visit * Reason Comments Med Refill Encounter Details Date Type Department Care Team (Late Contact Info) Description 03/28/2023 Refill [facility] [address] [place], [place] [phone] [facility] [address] [place] [address] Social History Tobacco Use Types Packs/Day Years [...] AM EDT documented as of this encounter Plan of Treatment Upcoming Encounters Date Type Department Care Team (Late Contact Info) Description 09/27/2024 4:00 PM EDT Office Visit [facility] [address] [place] [address] Sabine Bui FNP [address] [place] [address] documented as of this encounter Visit Diagnoses Not on filedocumented in this encounter Additional Health Concerns Assessment Noted Time PHQ-9 Depression Total Score: 0 12/03/19 23 10:09 AM EDT documented as of this encounter Care Teams Straight Slicing Machine Operator Relationship Specialty Start Date End Date Sabine Bui FNP [address] [place] [address] PCP - General Family Medicine 02/24/22 documented as of this encounter
--- OUTSIDE RECORDS SUMMARY | 2024-08-24 15:03 | XMS_ITS | Encounter Summary ---
Author Organization [employer] Address [address] [facility] 7t [place] [address] Care Team Providers Care Final Cigar And Box Examiner Name Role Phone Sabine Bui Primary Care Provider [phone] Reason for Visit * Reason Comments Med Refill Encounter Details Date Type Department Care Team ([facility] st Contact Info) Description 07/29/2024 Refill [facility] MEDICINE [address] [place] [address] Sabine Bui FNP [address] [place], [place] [phone] Social History Tobacco Use Types Packs/Day Years [...] Description 09/27/2024 4:00 PM EDT Office Visit [facility] [address] [place] [address] Sabine Bui FNP [address] [place] [address] documented as of this encounter Visit Diagnoses Not on filedocumented in this encounter Additional Health Concerns Assessment Noted Time PHQ-9 Depression Total Score: 0 12/03/19 23 10:09 AM EDT documented as of this encounter Care Teams Final Cigar And Box Examiner Relationship Specialty Start Date End Date Sabine Bui FNP [address] [place] [address] PCP - General Family Medicine 02/24/22 documented as of this encounter
--- OUTSIDE RECORDS SUMMARY | 2024-08-24 15:03 | XMS_ITS | Encounter Summary ---
Author Organization [employer] Address [address] [facility] 7t [place] [address] Care Team Providers Care Government Relations Director Name Role Phone Kennedy Buile PIZZA COOK Primary Care Provider [phone] Encounter Details Date Type Department Care Team ([facility] st Contact Info) Description 07/30/2024 Telephone [facility] [address] [place], [place] [phone] Gertrude Wall, PharmD [address] [place] [address] Social History Tobacco Use Types Packs/Day Years [...] encounter Miscellaneous Notes * Telephone Encounter - Gertrude Wall PharmD - 07/30/2024 12:34 PM EST Hello, this patient has an A1c > 10% and would benefit from the pharmacy CDTM program. Please send a referral for CDTM - Diabetes E11.9. Thank you! documented in this encounter Plan of Treatment Upcoming Encounters Date Type Department Care Team (Late st Contact Info) Description 09/27/2024 4:00 PM EDT Office Visit [facility] [address] [place] [address] Sabine Bui FNP [address] [place] [address] documented as of this encounter Visit Diagnoses Not on filedocumented in this encounter Additional Health Concerns Assessment Noted Time PHQ-9 Depression Total Score: 0 12/03/19 23 10:09 AM EDT documented as of this encounter Care Teams Government Relations Director Relationship Specialty Start Date End Date Sabine Bui FNP [address] [place] [address] PCP - General Family Medicine 02/24/22 documented as of this encounter
--- OUTSIDE RECORDS SUMMARY | 2024-08-24 15:03 | XMS_ITS | Clinical Summary ---
Author Organization [facility], Address [address] [place] [address] [place] [address] Phone Care Team Providers Care Systems Mechanic Name Role Phone Mynor Ventura MD Primary Care Provider [phone] Allergies No known active allergies Medications apixaban (Eliquis) 5 MG tablet Take 5 mg by mouth in the morning and 5 mg in the evening. Active Dulaglutide (Trulicity) 3 MG/0.5ML solution pen-injector Inject 2 Units under the skin 1 (one) time per week Active metFORMIN (GLUCOPHAGE) 500 MG tablet Take 500 mg by mouth 1 (one) time each day Active amLODIPine (NORVASC) 10 MG tablet Take 10 mg by mouth 1 (one) time each day Active atorvastatin (LIPITOR) 20 MG tablet Take 20 mg by mouth 1 (one) time each day Active acetaminophen (TYLENOL) 500 MG tablet Take 1,000 mg by mouth every 6 (six) hours if needed for mild pain Active Diclofenac Sodium (Voltaren Arthritis Pain) 1 % gel Apply topically Active omeprazole (PriLOSEC) [address] capsule Take 20 mg by mouth 1 (one) time each day Do not crush or chew. Active lisinopril-hydr oCHLOROthiazide (PRINZIDE,ZESTO RETIC) 20-25 MG per tablet Take 1 tablet by mouth 1 (one) time each day 90 tablet 3 4 Active melatonin 3 MG tablet Take 1 tablet (3 mg total) by mouth at night if needed for sleep 90 tablet 1 4 Active Active Problems Problem Noted Date Diagnosed Date Chronic kidney disease 02/20/2023 Essential hypertension 02/20/2023 Other proteinuria 02/20/2023 Family History Medical History Relation Comments Diabetes Brother Heart disease Brother Hypertension Brother Stroke Brother Cancer Mother breast Hypertension Mother Diabetes Sibling Brother- Heart disease Sibling Brother-CAD Relation Status Comments Brother Father Unknown Mother Unknown Sibling Social History Tobacco Use Types Packs/Day Years Used Date Smoking Tobacco: Never Alcohol Use Standard Drinks/Week Comments Yes 0 (1 standard drink = 0.6 oz pure alcohol) Alcoholic Drinks/day: 1-2 drinks per day Sex and Gender Information Value Date Recorded Sex Assigned at Not on file Legal Sex Male 4:30 PM EST Gender Identity Not on file Sexual Orientation Not on file Last Filed Vital Signs Vital Sign Reading Time Taken Comments Blood Pressure 170/80 07/02/2023 2:16 PM EST Pulse 70 07/02/2023 2:16 PM EST Temperature - - Respiratory Rate - - Oxygen Saturation - - Inhaled Oxygen Concentration - - Weight 104 kg (229 lb) 07/02/2023 2:16 PM EST Height 180.3 cm (5' 11 ) 12/28/2018 12:00 PM EDT Body Mass Index 31.94 12/28/2018 12:00 PM EDT Plan of Treatment Health Maintenance Due Date Last Done Comments Colorectal Cancer Screening: Annual FOBT 2013 Colorectal Cancer Screening: Colonoscopy 2013 Colorectal Cancer Screening: Sigmoidoscopy 2013 Pneumococcal Vaccine: Pediatrics (0 to 5 Years) and At-Risk Patients (6 to 64 Years) (2 of 2 - PCV) 02/28/2016 02/27/2015 Diabetes: Ophthalmology Exam 09/20/2019 Diabetes: Pedal Pulse Checked 09/20/2019 Diabetes: Sensory Foot Exam 09/20/2019 Diabetes: Visual Foot Exam 09/20/2019 Diabetes: Hemoglobin A1C 05/15/2023 023, 02/11/2019 Influenza Vaccine (#1) 2024 06/29/2013 Hepatitis B Vaccine Aged Out 12/11/2021, 02/21/2021 No longer eligible based on patient's age to complete this topic Procedures Procedure Name Priority Date/Time Associated Diagnosis Comments HEMOGLOBIN A1C Routine 02/11/2019 7:21 AM EDT from Last 3 Months or Most Recently Relevant to Health Maintenance Results * Hemoglobin A1c (02/11/2019 7:21 AM EDT) Hemoglobin A1C 5.9 (4-6) % [place] [id number] Comment: HEMOGLOBIN A1C(%) ?? GLUCOSE CONTROL INDEX ?<6% ? EXCELLENT ?6-7% ?VERY GOOD ?7-8% ?GOOD ?8-10% ? FAIR ?>10% ?POOR Hemoglobin (Hb) A1c testing is performed by [employer]-quant immunoassay. Any cause of shortened erythrocyte survival will reduce exposure of erythrocytes to glucose with a consequent decrease in Hb A1c (%). Testing performed or reported by ~[facility], ~a Service of [facility], ~[address] [place] [address]~ 02/11/2019 7:21 AM EDT us Regis Cordero MD LAB BLOOD ORDERABLES Final Resul t [facility] from Last 3 Months or Most Recently Relevant to Health Maintenance Insurance * Guarantor: Davis Hernandez Account Type Relation to Patient Date of Phone Billing Address Personal/Family Self 1965 [address] [place] [address] MEDICARE MEDICAID [place] * Guarantor: Davis Hernandez Account Type Relation to Patient Date of Phone Billing Address Personal/Family Self [address] [place] [address] [facility] DUAL SNP ([id number]) * Guarantor: Davis Hernandez Account Type Relation to Patient Date of Phone Billing Address Personal/Family Self [address] [place] [address] Care Teams Systems Mechanic Relationship Specialty Start Date End Date Mynor Ventura MD [address] [place] [phone] PCP - General Emergency Medicine 10/31/22
--- OUTSIDE RECORDS SUMMARY | 2024-08-24 15:03 | XMS_ITS | Clinical Summary ---
Author Organization [email or web address] [facility] ity Address [address] [place] [address] Care Team Providers Care Coffee Shop Aide Name Role Phone Unavailable Primary Care Provider Unavailabl e Surgical History Surgery Date Site/Laterality Comments EYE SURGERY PROCEDURE: HISTORICAL EYE SURGERY; COMMENT: right eye pterygium BACK SURGERY PROCEDURE: HISTORICAL BACK SURGERY; COMMENT: LS DISC HERNIATION Social History Tobacco Use Types Packs/Day Years Used Date Smoking Tobacco: Never Alcohol Use Standard Drinks/Week Comments Yes 0 (1 standard drink = 0.6 oz pur e alcohol) Sex and Gender Information Value Date Recorded Sex Assigned at Not on file Legal Sex Male 1:57 PM EST Gender Identity Not on file Sexual Orientation Not on file Obstetrics History Last Filed Vital Signs Vital Sign Reading Time Taken Comments Blood Pressure 138/87 02/05/2024 8:49 AM EDT Sit ting L Arm Pulse 60 02/05/2024 8:49 AM EDT Temperature - - Respiratory Rate - - Oxygen Saturation - - Inhaled Oxygen Concentration - - Weight 107 kg (236 lb) 02/05/2024 8:49 AM EDT Height 180.3 cm (5' 11 ) 02/05/2024 8:49 AM EDT Body Mass Index 32.92 02/05/2024 8:49 AM EDT Plan of Treatment Health Maintenance Due Date Last Done Comments Diabetes: Annual GFR (Glomer ular Filtration Rate) 1964 Diabetes: Annual Foot Exam 1974 Diabetes: Annual Retina Eye Exam 1974 DTaP,Tdap,and Td Vaccines (1 - Tdap) 1983 Pneumococcal Vaccine: 50+ Ye ars (1 of 1 - PCV) 2014 Zoster Vaccines (1 of 2) 2014 Cholesterol Screening (Lipid Panel) 06/12/2022 Colorectal Cancer Screening: Colonoscopy 06/12/2022 Depression Screening 06/12/2022 HIV Screening 06/12/2022 Hepatitis C Screening 06/12/2022 Social Influencers of Health Screening 06/12/2022 Diabetes: Annual Urine Albumin-Creatinine Ratio (uACR) 06/15/2022 Diabetes: Blood Sugar Contro l Test (HGBA1C) 06/15/2022 Hypertension/CHF/CAD Annual BMP Blood Test 06/15/2022 COVID-19 Vaccine (2023-2 5 season) 2024 Influenza Vaccine (#1) 2024 RSV Immunization Patients 60 + Years Old (1 - 1-dose 75+ series) 2039 HIB Vaccines Aged Out No longer eligi ble based on patient's age to complete this topic HPV Vaccines Aged Out No longer eligi ble based on patient's age to complete this topic Hepatitis A Vaccines Aged Out No long er eligible based on patient's age to complete this topic Hepatitis B Vaccines Aged Out No long er eligible based on patient's age to complete this topic IPV Vaccines Aged Out No longer eligi ble based on patient's age to complete this topic MMR Vaccines Aged Out No longer eligi ble based on patient's age to complete this topic Meningococcal ACWY Vaccine Aged Out N o longer eligible based on patient's age to complete this topic Meningococcal B Vacine Aged Out No lo nger eligible based on patient's age to complete this topic Pneumococcal Vaccine: Pediat rics (0 to 5 Years) and At-Risk Patients (6 to 64 Years) Aged Out No longer eligible b ased on patient's age to complete this topic RSV Immunization Patients Un tawanda 20 months Aged Out No longer eligible b ased on patient's age to complete this topic Varicella Vaccines Aged Out No longer eligible based on patient's age to complete this topic Advance Directives Documents on File Type Date Recorded 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 Health Care Decision (hx) 11/15/2020 AD GILMORE DIRECTIVE Health Care Decision (hx) 11/15/2020 AD GILMORE DIRECTIVE Health Care Decision (hx) 11/15/2020 AD GILMORE DIRECTIVE Health Care Decision (hx) 11/15/2020 AD GILMORE DIRECTIVE Health Care Decision (hx) 11/15/2020 AD GILMORE DIRECTIVE Health Care Decision (hx) 11/15/2020 AD GILMORE DIRECTIVE Health Care Decision (hx) 11/15/2020 AD GILMORE DIRECTIVE Health Care Decision (hx) 11/15/2020 AD GILMORE DIRECTIVE Health Care Decision (hx) 11/15/2020 AD GILMORE DIRECTIVE Health Care Decision (hx) 11/15/2020 AD GILMORE DIRECTIVE Health Care Decision (hx) 11/15/2020 AD GILMORE DIRECTIVE Health Care Decision (hx) 11/15/2020 AD GILMORE DIRECTIVE Health Care Decision (hx) 11/15/2020 AD GILMORE DIRECTIVE Health Care Decision (hx) 11/15/2020 AD GILMORE DIRECTIVE Health Care Decision (hx) 11/15/2020 AD GILMORE DIRECTIVE Health Care Decision (hx) 11/15/2020 AD GILMORE DIRECTIVE Health Care Decision (hx) 11/15/2020 AD GILMORE DIRECTIVE Health Care Decision (hx) 11/15/2020 AD GILMORE DIRECTIVE
--- OUTSIDE RECORDS SUMMARY | 2024-08-24 15:03 | XMS_ITS | Encounter Summary ---
Author Organization [employer] [facility] Address [address] [place] [address] 7t [place] [address] Care Team Providers Care Fruit Rancher Name Role Phone Sabine Bui Primary Care Provider [phone] Encounter Details Date Type Department Care Team (Late st Contact Info) Description 10/16/2022 Orders Only [facility] MED & PEDS [address] [place] [address] Safia Cuba LPN Social History Tobacco Use Types Packs/Day Years [...] Description 09/27/2024 4:00 PM EDT Office Visit [facility] MED & PEDS [address] [place] [address] Sabine Bui FNP [address] [place] [address] documented as of this encounter Visit Diagnoses Not on filedocumented in this encounter Care Teams Fruit Rancher Relationship Specialty Start Date End Date Sabine Bui FNP [address] [place] [address] PCP - General Family Medicine 02/24/22 documented as of this encounter
--- OUTSIDE RECORDS SUMMARY | 2024-08-24 15:03 | XMS_ITS | Encounter Summary ---
Author Organization [employer] Address [address] [facility] 7 [place] [address] Care Team Providers Care State Federal Relations Deputy Director Name Role Phone AvivaSabine bustillos ALEXANDRA Primary Care Provider [phone] Reason for Visit * Reason Onset Date Comments wrong specimen received 08/24/2024 Encounter Details Date Type Department Care Team ([facility] st Contact Info) Description 08/24/2024 Telephone [facility] MEDICINE [address] [place] [address] Toya Marinelli MD [address] [place] [address] wrong specimen received Social History Tobacco Use Types Packs/Day Years [...] encounter Miscellaneous Notes * Telephone Encounter - Reggie Carty [place] - 08/24/2024 2:08 PM EST Incoming call from [facility] ([facility]) to informed that order for Urine protein is cancel due to they received a urine culture tube instead of the regular UA cup.. Please notify [facility] if needs recollection.Thank you. documented in this encounter Plan of Treatment Upcoming Encounters Date Type Department Care Team ([facility] st Contact Info) Description 09/27/2024 4:00 PM EDT Office Visit [facility] MED & PEDS [address] [place] [address] Sabine Bui FNP [address] [place] [address] documented as of this encounter Visit Diagnoses Not on filedocumented in this encounter Additional Health Concerns Assessment Noted Time PHQ-9 Depression Total Score: 0 12/03/19 23 10:09 AM EDT documented as of this encounter Care Teams State Federal Relations Deputy Director Relationship Specialty Start Date End Date Sabine Bui FNP [address] [place] [address] PCP - General Family Medicine 02/24/22 documented as of this encounter
--- OUTSIDE RECORDS SUMMARY | 2024-08-24 15:03 | XMS_ITS | Encounter Summary ---
Author Organization [employer] Address [address] [place] [address] 7 [place] [address] Care Team Providers Care Earth Science Teacher Name Role Phone Sabine Bui Primary Care Provider [phone] Reason for Visit * Reason Onset Date Comments Appointment Request 09/26/2022 Encounter Details Date Type Department Care Team (Late st Contact Info) Description 09/26/2022 Telephone [facility] MEDICINE [address] [place] [address] Sabine Bui FNP [address] [place] [address] Appointment Request Social History Tobacco Use Types Packs/Day Years Used Date Smoking Tobacco: Never Assessed Sex and Gender Information Value Date Recorded Sex Assigned at Male 04/29/2022 10:26 AM EDT Legal Sex Male 10:26 AM EDT Gender Identity Male 04/29/2022 10:26 AM EDT Sexual Orientation Straight 04/29/2022 10 :26 AM EDT documented as of this encounter Miscellaneous Notes * Telephone Encounter - Yolande Chapa - 09/26/2022 12:31 PM EDT Tc from pt requesting a TP appt with provider. Please contact pt at [phone] documented in this encounter Plan of Treatment Upcoming Encounters Date Type Department Care Team (Late st Contact Info) Description 09/27/2024 4:00 PM EDT Office Visit [facility] MED [facility] PEDS [address] [place] [address] Sabine Bui FNP [address] [place] [address] documented as of this encounter Visit Diagnoses Not on filedocumented in this encounter Care Teams Earth Science Teacher Relationship Specialty Start Date End Date Sabine Bui FNP [address] [place] [address] PCP - General Family Medicine 02/24/22 documented as of this encounter
--- OUTSIDE RECORDS SUMMARY | 2024-08-24 15:03 | XMS_ITS | Encounter Summary ---
Author Organization [employer] Address [address] [facility] 7t [place] [address] Care Team Providers Care Process Environmental Technician Name Role Phone Sabine Bui Primary Care Provider [phone] Reason for Visit * Reason Comments Med Refill Encounter Details Date Type Department Care Team ([facility] st Contact Info) Description 06/07/2024 Refill [facility] MEDICINE [address] [place] [address] Sabine Bui FNP [address] [place] [address] Social History Tobacco Use Types Packs/Day Years [...] Description 09/27/2024 4:00 PM EDT Office Visit [facility] MED & PEDS [address] [place] [address] Sabine Bui FNP [address] [place] [address] documented as of this encounter Visit Diagnoses Not on filedocumented in this encounter Additional Health Concerns Assessment Noted Time PHQ-9 Depression Total Score: 0 12/03/19 23 10:09 AM EDT documented as of this encounter Care Teams Process Environmental Technician Relationship Specialty Start Date End Date Sabine Bui FNP [address] [place] [address] PCP - General Family Medicine 02/24/22 documented as of this encounter
--- OUTSIDE RECORDS SUMMARY | 2024-08-24 15:03 | XMS_ITS | Encounter Summary ---
Author Organization [employer] Address [address] [place] [address] 7 [place] [address] Care Team Providers Care Product/Industry Consultant Name Role Phone Sabine Bui Primary Care Provider [phone] Reason for Visit * Reason Onset Date Comments ER Follow-up 08/21/2023 Encounter Details Date Type Department Care Team ([facility] st Contact Info) Description 08/21/2023 Telephone [facility] MED [facility] PEDS [address] [place], [place] [phone] Sabine Bui FNP [address] [place] [address] ER Follow-up Social History Tobacco Use Types Packs/Day Years Used Date Smoking Tobacco: Never Smokeless Tobacco: Never Alcohol Use Standard Drinks/Week Comments Yes 0 (1 standard drink = 0.6 oz pur e alcohol) Ocassionally Depression Answer Date Recorded Patient Health Questionnaire-9 Score 0 12/02/2022 Housing Stability Answer Date Recorded What is your housing situation today? I have anna lua 04/07/[address] you li ve. Do you have problems with any of the following? Pests such as bugs, ants, or mice 04/07/2023 Food Insecurity Answer Date Recorded Within the [...] encounter Miscellaneous Notes * Telephone Encounter - ALEXANDRA Tejada - 08/22/2023 8:57 PM EST Communication reviewed - thank you. Awaiting notes from [facility] for further review. Glad he is scheduled for short -term follow up visits. * Telephone Encounter - Rachel Galo RN - 08/22/2023 3:59 PM EST TC placed to patient regarding recent ED visit. Patient explained that he was seen in the ED on 08/20/23 and his primary concern was chest pain and they were very worried about him and many values were elevated, including BP, sugar, and possibly something else but he's not sure what it was. He states that there was some trouble in his L arm. He states that he is doing ok now but continuing to havesome trouble with his arm. He denies current chest pain. Unable to understand all of his [place] and asked for permission to call patient back with regional hr manager line, but patient declined because he is currently driving. He asked if we could call him later this evening, but I explained that we would be closed. Patient asked for f/u visit with PCP, but nothing soon available. Offered in-person visit with Dr. Fitzpatrick on 09/01/23 @ 11:15 and patient accepted.Patient also agreeable to televisit with Dr. Hillman tomorrow, 08/23/23 @ 12pm. Scheduled for both televisit tomorrow and office visit on 08/31 for further evaluation of arm pain, elevated BP readings, and elevated sugar, as well as any other concerns not well-communicated. Patient advised to seek care if symptoms return/persist/worsen. Routing note to PCP for her review. Notes from [facility] not yet in chart. ARLETTE Jacobson faxed request yesterday but did not see notes arrive yet. Will fax request again today to make sure request is received. * Telephone Encounter - Yolande Chapa - 08/21/2023 4:45 PM EST Tc from pt returning phone call. * Telephone Encounter - Rachel Galo RN - 08/21/2023 4:26 PM EST TC placed to patient regarding message below. No answer. LM in both [place] and [place] to call us back to let us know how he is doing and schedule a f/u visit with PCP. Notes being requested by fax from [facility] by ARLETTE Jacobson. Routing back to [facility] nurses to try again to schedule ED f/u. Patient calling to report ED visit on : Date: 08/20 Hospital: [facility] Seen for: Chest pain Patient advised will forward to team nurse for follow up Please contact pt at [phone] ([place]izen [place]) * Telephone Encounter - Toay Ring - 08/21/2023 10:55 AM EST Patient calling to report ED visit on : Date: 08/20 [facility]: [facility] Seen for: Chest pain Patient advised will forward to team nurse for follow up Please contact pt at [phone] (Citizen [place]) documented in this encounter Plan of Treatment Upcoming Encounters Date Type Department Care Team (Late st Contact Info) Description 09/27/2024 4:00 PM EDT Office Visit [facility] MED [facility] PEDS [address] [place] [address] Sabine Bui FNP [address] [place] [address] documented as of this encounter Visit Diagnoses Not on filedocumented in this encounter Additional Health Concerns Assessment Noted Time PHQ-9 Depression Total Score: 0 12/03/19 23 10:09 AM EDT documented as of this encounter Care Teams Product/Industry Consultant Relationship Specialty Start Date End Date Sabine Bui FNP [address] [place] [address] PCP - General Family Medicine 02/24/22 documented as of this encounter
--- OUTSIDE RECORDS SUMMARY | 2024-08-24 15:03 | XMS_ITS | Encounter Summary ---
Author Organization [employer] Address [address] [place] [address] 7 [place] [address] Care Team Providers Care Light Oil Operator Name Role Phone Sabine Bui Primary Care Provider Reason for Referral * Consultation (Routine) - Authorized Specialty Diagnoses / Procedures Referred By Contac t Referred To Contact Pharmacy Diagnoses Type 2 diabetes mellitus with hyperglycemia, without long-term current use of insulin (CMS/HCC) Nohemy Stephens MD [address] [place] [address] Phone: tel: fax: Referral ID Status Reason Start Date Expiration Date Visits Requested Visits Authorized [id number] Authorized Consult and Treat 08/08/2024 08/08/2025 6 6 Scheduling Instructions [facility] Pharmacy CDTM program, A1C > 10% Encounter Details Date Type Department Care Team (Late st Contact Info) Description 08/08/2024 Orders Only [facility] MEDICINE [address] [place], [place] [phone] Nohemy Stephens MD [address] [place] [address] Type 2 diabetes mellitus with hyperglycemia, without long-term current use of insulin (CMS/HCC) (Primary Dx) Social History Tobacco Use Types Packs/Day Years [...] Upcoming Encounters Date Type Department Care Team ([facility] st Contact Info) Description 09/27/2024 4:00 PM EDT Office Visit [facility]EDS [address] [place] [address] Sabine Bui FNP [address] [place] [address] Scheduled Referrals Name Type Priority Associated Diagnoses Orde r Schedule Referral to Pharmacy CDTM Outpatient Referral Routine Type 2 diabetes mellitus with hyperglycemia, without long-term current use of insulin ([facility]) Ordered: 08/08/2024 documented as of this encounter Visit Diagnoses Diagnosis Type 2 diabetes mellitus with hyperglycemia, without long-term current use of insulin (CMS/[facility])- Primary documented in this encounter Additional Health Concerns Assessment Noted Time PHQ-9 Depression Total Score: 0 12/03/19 23 10:09 AM EDT documented as of this encounter Care Teams Light Oil Operator Relationship Specialty Start Date End Date Sabine Bui FNP [address] [place] [address] PCP - General Family Medicine 02/24/22 documented as of this encounter
== END 2024-08-23 00:01 | disposition home or self-care (01) ==
LOC: HO.LNP
PROVIDERS: Visit Provider Internal Medicine
DX: Z13.89 Encounter for screening for other disorder (principal)

== ENCOUNTER 2024-08-26 14:26 | Outpatient (REF) | payer MEDICARE, SELFPAY ==
[2024-08-26 16:10] LABS: MANUAL DIFF FLAG NO
[2024-08-26 16:19] LABS: Basophils Percent Auto 0.4 % (0-2); Eosinophils Absolute Auto 0.1 X10*3/uL (0.0-0.4); Eosinophils Percent Auto 0.8 % (0-4); Hematocrit 49.8 % (42.0-52.0); Hemoglobin 16.3 g/dl (14.0-18.0); Imm Gran Abs Auto 0.03 X10*3/uL (0.00-0.03); Imm Gran Pct Auto 0.4 % (0.0-0.4); Lymphocytes Absolute Auto 1.8 X10*3/uL (1.2-4.9); Mean Corpuscular HGB Conc 32.7 g/dl (31.0-36.0); Mean Corpuscular Hemoglobin 28.4 pg (27.0-33.0); Mean Corpuscular Volume 86.8 fL (80.0-98.0); Mean Platelet Volume 12.7 fL (9.4-12.4); Monocytes Absolute Auto 0.4 X10*3/uL (0.1-1.2); Monocytes Percent Auto 5.7 % (2-11); Neutrophils Percent Auto 68.7 % (45-73); Platelet Count 163 X10*3/uL (160-400); Red Blood Count 5.74 X10*6/uL (4.60-5.80); White Blood Count 7.3 X10*3/uL (4.8-10.8)
[2024-08-26 16:30] LABS: Uric Acid 7.9 mg/dL (3.4-7.0)
[2024-08-26 16:32] LABS: D Dimer High Sensitivity < 150 NG/ML
[2024-08-26 16:45] LABS: Alanine Aminotransferase 45 U/L (0-40); Albumin Level 4.2 g/dL (3.5-5.0); Alkaline Phosphatase 68 U/L (39-117); Anion Gap 11 (12-20); Aspartate Amino Transferase 39 U/L (5-37); Bilirubin Total 0.7 mg/dL (0.0-1.0); Blood Urea Nitrogen 22 mg/dL (9-16); Calcium 9.6 mg/dL (8.4-10.2); Carbon Dioxide 26 mmol/L (22-29); Chloride 107 mmol/L (96-108); Estimated Glomerular Filt Rate 45; Glucose Random 194 mg/dL (60-115); Potassium 4.8 mmol/L (3.3-5.1); Sodium 139 mmol/L (135-145); Total Protein 8.2 g/dL (6.5-8.0)
[2024-08-26 17:10] LABS: Total Protein Urine Random 49 mg/dL (<12)
--- OUTSIDE RECORDS SUMMARY | 2024-08-26 17:40 | XMS_ITS | Encounter Summary ---
Author Organization [employer] Address [address] [place] [address] 7t [place] [address] Care Team Providers Care Tool And Die Designer Name Role Phone Sabine Bui Primary Care Provider [phone] Reason for Visit * Reason Onset Date Comments Appointment Request 09/26/2022 Encounter Details Date Type Department Care Team (Late st Contact Info) Description 09/26/2022 Telephone [facility] MEDICINE [address] [place] [address] Sabine Bui FNP [address] [place] [address] Appointment Request Social History Tobacco Use Types [...] appt with provider. Please contact pt at [phone] documented in this encounter Plan of Treatment Upcoming Encounters Date Type Department Care Team (Late st Contact Info) Description 09/27/2024 4:00 PM EDT Office Visit [facility] MED & PEDS [address] [place] [address] Sabine Bui FNP [address] [place] [address] documented as of this encounter Visit Diagnoses Not on filedocumented in this encounter Care Teams Tool And Die Designer Relationship Specialty Start Date End Date Sabine Bui FNP [address] [place] [address] PCP - General Family Medicine 02/24/22 documented as of this encounter
--- OUTSIDE RECORDS SUMMARY | 2024-08-26 17:40 | XMS_ITS | Encounter Summary ---
Author Organization [employer] Address [address] [place] [address] 7 [place] [address] Care Team Providers Care Marine Fisheries Technician Name Role Phone Sabine Bui Primary Care Provider [phone] Reason for Referral * Consultation (Routine) - Authorized Specialty Diagnoses / Procedures Referred By Contac t Referred To Contact Pharmacy Diagnoses Type 2 diabetes mellitus with hyperglycemia, without long-term current use of insulin (CMS/HCC) Nohemy Stephens MD [address] [place] [address] Phone: tel: fax: Referral ID Status Reason Start Date Expiration Date Visits Requested Visits Authorized [id number] Authorized Consult and Treat 08/08/2024 08/08/2025 6 6 Scheduling Instructions [facility] Pharmacy CDTM program, A1C > 10% Encounter Details Date Type Department Care Team (Late st Contact Info) Description 08/08/2024 Orders Only [facility] MEDICINE [address] [place], [place] [phone] Nohemy Stephens MD [address] [place] [address] Type 2 diabetes mellitus with [...] Upcoming Encounters Date Type Department Care Team ([facility] st Contact Info) Description 09/27/2024 4:00 PM EDT Office Visit [facility] MED & PEDS [address] [place] [address] Sabine Bui FNP [address] [place] [address] Scheduled Referrals Name Type Priority Associated Diagnoses Orde r Schedule Referral to Pharmacy CDTM Outpatient Referral Routine Type 2 diabetes mellitus with hyperglycemia, without long-term current use of insulin ([facility]) Ordered: 08/08/2024 documented as of this encounter Visit Diagnoses Diagnosis Type 2 diabetes mellitus with hyperglycemia, without long-term current use of insulin (CMS/[facility])- Primary documented in this encounter Additional Health Concerns Assessment Noted Time PHQ-9 Depression Total Score: 0 12/03/19 23 10:09 AM EDT documented as of this encounter Care Teams Marine Fisheries Technician Relationship Specialty Start Date End Date Sabine Bui FNP [address] [place] [address] PCP - General Family Medicine 02/24/22 documented as of this encounter
--- OUTSIDE RECORDS SUMMARY | 2024-08-26 17:40 | XMS_ITS | Clinical Summary ---
Author Organization [facility], Address [address] [place] [address] [place] [address] Phone Care Team Providers Care Clinical Psychology Professor Name Role Phone Mynor Ventura MD Primary Care Provider [phone] Allergies No known active allergies Medications apixaban [...] AM EDT) Hemoglobin A1C 5.9 (4-6) % [place] [address] Comment: HEMOGLOBIN A1C(%) ?? GLUCOSE CONTROL INDEX ?<6% ? EXCELLENT ?6-7% ?VERY GOOD ?7-8% ?GOOD ?8-10% ? FAIR ?>10% ?POOR Hemoglobin (Hb) A1c testing is performed by [employer]-quant immunoassay. Any cause of shortened erythrocyte survival will reduce exposure of erythrocytes to glucose with a consequent decrease in Hb A1c (%). Testing performed or reported by ~[facility], ~a Service of [facility], ~[address] [place] [address]~ 02/11/2019 7:21 AM EDT us Regis Cordero MD LAB BLOOD ORDERABLES Final Resul t [facility] from Last 3 Months or Most Recently Relevant to Health Maintenance Insurance * Guarantor: Davis Hernandez Account Type Relation to Patient Date of Phone Billing Address Personal/Family Self [address] [place] [address] MEDICARE MEDICAID [place] * Guarantor: Davis Hernandez Account Type Relation to Patient Date of Phone Billing Address Personal/Family Self [address] [place] [address] [facility] DUAL SNP ([id number]) * Guarantor: Davis Hernandez Account Type Relation to Patient Date of Phone Billing Address Personal/Family Self [address] [place] [address] Care Teams Clinical Psychology Professor Relationship Specialty Start Date End Date Mynor Ventura MD [address] [place] [phone] PCP - General Emergency Medicine 10/31/22
--- OUTSIDE RECORDS SUMMARY | 2024-08-26 17:40 | XMS_ITS | Clinical Summary ---
Author Organization [employer] [facility] ity Address [address] [place] [address] Care Team Providers Care Supervisor Carton And Can Supply Name Role Phone Unavailable Primary Care Provider [...] Documents on File Type Date Recorded Patient Bobbin Winder Expl anation Health Care Decision (hx) 11/15/2020 [...]
--- OUTSIDE RECORDS SUMMARY | 2024-08-26 17:40 | XMS_ITS | Encounter Summary ---
Author Organization [employer] Address [address] [facility] 7t [place] [address] Care Team Providers Care Orthotics Prosthetics Assistant Name Role Phone Kennedy Buile REPRINT SORTER Primary Care Provider [phone] Encounter Details Date Type Department Care Team ([facility] st Contact Info) Description 07/30/2024 Telephone [facility] MED & PEDS [address] [place], [place] [phone] Gertrude Wall, PharmD [address] [place] [address] Social History Tobacco Use Types Packs/Day Years [...] 09/27/2024 4:00 PM EDT Office Visit [facility] MED & PEDS [address] [place] [address] Sabine Bui FNP [address] [place] [address] documented as of this encounter Visit Diagnoses Not on filedocumented in this encounter Additional Health Concerns Assessment Noted Time PHQ-9 Depression Total Score: 0 12/03/19 23 10:09 AM EDT documented as of this encounter Care Teams Orthotics Prosthetics Assistant Relationship Specialty Start Date End Date Sabine Bui FNP [address] [place] [address] PCP - General Family Medicine 02/24/22 documented as of this encounter
--- OUTSIDE RECORDS SUMMARY | 2024-08-26 17:40 | XMS_ITS | Clinical Summary ---
Author Organization [employer] Address [address] [facility] 7[address] [place] [address] Care Team Providers Care Welding Machine Operator Electro Gas Name Role Phone Sabine Bui ALEXANDRA Primary Care Provider [phone] Allergies No known active allergies Medications tiZANidine [...] hyperglycemia, without long-term current use of insulin ([facility]) INJECT 14 UNITS UNDER THE SKIN NIGHTLY [...] CHEW 90 capsule 1 024 2024 Discontinued tiZANidine (Zanaflex) 2 MG tabletIndications :Other acute back pain Take 1 tablet (2 mg) by mouth every 8 (eight) hours if needed for muscle spasms for up to 10 days. 30 tablet 025 2024 Discontinued(R eorder (will not trigger notification to Pharmacy)) Active Problems Problem Noted Date Diagnosed Date Elevated PSA 04/26/2024 Overview (04/26/2024): Lab Results Component Value Date PSA 13.69 (H) 12/23/2023 - Referred to Urology December 2023 Assessment & Plan (04/26/2024 6:23 PM EDT): - Missed initial appt, encouraged to call and reschedule History of chest pain 12/24/2023 Overview (12/24/2023): 10/03/23 - Stress Test completed at [facility]. Impression: Equivocal exercise stress test in the setting of EKG changes. No chest pain and no diagnostic ischemic EKG changes. No arrhythmias. Recommend further testing with nuclear imaging. Pt scheduled for Cards consult December 2023 ED precautions Other proteinuria 02/20/2023 Routine health maintenance 11/05/2022 Assessment & Plan (12/24/2023 3:01 PM EDT): Routine Health Maintenance Optometry: referred to [facility] 12/22/23 Dental: encouraged to [...] ?? Hx of lumbar spinal surgery in [place], scar well healed ?? MRI of lumbar spine ordered 10/02/22, pending ?? Referral to Spine and Sports for further eval ?? ED precautions reviewed Pulmonary embolism 12/11/2021 Overview (12/22/2023): Date of PE: August 2020 Following with [facility] Heme/Onc Last consult note: 10/09/23: Plan to cont on Eliquis 2.5mg BID Hypercoagulable workup negative Assessment & Plan (11/05/2022 6:17 PM EDT): ?? Following with [facility] Heme/Onc, last consult appt Mar 2022. Decreased Eliquis to 2.5mg BID. Plan for follow up appt approx September 2022 to discuss discontinuation of anticoagulation. ?? Encouraged pt to schedule follow up visit with [facility] Heme/Onc as planned. Stage 3b chronic kidney disease 01/28/2021 Assessment & Plan (12/22/2023 8:40 AM EDT): Following with [facility] Pt aware of need to avoid NSAIDs and maintain good hydration status Assessment & Plan (09/28/2023 10:28 AM EDT): Following with [facility] Pt aware of need to avoid NSAIDs and maintain good hydration status Assessment & Plan (04/08/2023 9:23 AM EDT): ?? Following with [facility] (last consult appt in January 2023) ?? Check CMP & microalbumin prior to appt ?? Pt aware of need to avoid NSAIDs and maintain good hydration status Assessment & Plan (11/05/2022 6:18 PM EDT): ?? Referred to Nephrology on 10/02/22 during [facility] visit. 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 ?? A1c currently >9%, therefore [...] Encounters Date Type Department Care Team Description 08/26/2024 Orders Only GENERIC EXTERNAL DATA DEPARTMENT Provider, Generic External Data 08/25/2024 Orders Only [facility] [address] [place] [phone] Toya Marinelli MD Other acute back pain 08/25/2024 Telephone [facility] [address] [place] [phone] Toya Marinelli MD Lab Orders 08/24/2024 Telephone [facility] [address] [place] [phone] Toya Marinelli MD wrong specimen received 08/23/2024 5:20 PM EST Office Visit [facility] [address] [place] [phone] Toya Marinelli MD Other acute back pain (Primary Dx); Type 2 diabetes mellitus with hyperglycemia, without long-term current use of insulin (CMS/HCC) 08/23/2024 Telephone [facility] [address] [place] [phone] Sabine Bui FNP Nurse Triage 08/08/2024 Orders Only [facility] [address] [place] [address] Nohemy Stephens MD Type 2 diabetes mellitus with hyperglycemia, without long-term current use of insulin (CMS/HCC) (Primary Dx) 07/30/2024 Telephone [facility] [address] [place] [address] Gertrude Wall, PharmD 07/29/2024 Refill [facility] [address] [place] [address] Sabine Bui FNP 07/20/2024 Telephone [facility] [address] [place] [address] Sabine Bui FNP June06/19/2024 Refill [facility] [address] [place] [address] Sabine Bui FNP 06/10/2024 Refill [facility] [address] [place] [address] Sabine Bui FNP Type 2 diabetes mellitus with hyperglycemia, without long-term current use of insulin (CMS/HCC) 06/07/2024 Refill [facility] [address] [place] [address] Sabine Bui FNP from Last 3 Months [...] [facility] [address] [place] [address] Sabine Bui, ALEXANDRA [address] [place] [address] Health Maintenance Due Date Last Done Comments [...] Procedure Name Priority Date/Time Associated Diagnosis Comments COMPREHENSIVE METABOLIC PANEL Routine 08/26/2024 2:29 PM EST D DIMER HIGH SENSITIVITY Routine 08/26/2024 2:29 PM EST CBC WITH AUTO DIFFERENTIAL Routine 08/26/2024 2:29 PM EST URINE PROTEIN, TOTAL, RANDOM (W/O CREATININE) Routine 08/26/2024 2:29 PM EST Other acute back pain URIC ACID Routine 08/26/2024 2:29 PM EST Gout of foot, unspecified cause, unspecified chronicity, unspecified laterality POCT URINALYSIS DIPSTICK Routine 08/23/2024 6:39 PM EST Other acute back pain POCT GLYCATED HEMOGLOBIN, TOTAL Routine 08/23/2024 6:36 PM EST Type 2 diabetes mellitus with hyperglycemia, without long-term current use of insulin (CMS/HCC) POCT GLUCOSE Routine 08/23/2024 6:32 PM EST Other acute back pain ALBUMIN, RANDOM URINE W/CREATININE Routine 12/23/2023 10:00 AM EDT Type 2 diabetes mellitus with hyperglycemia, without long-term current use of insulin (CMS/HCC) HEPATITIS C VIRAL RNA, QUANTITATIVE, REAL-TIME PCR Routine 12/23/2023 9:55 AM EDT Encounter for routine history and physical examination of adult HIV 1/2 ANTIGEN/ANTIBODY, FOURTH GENERATION W/RFL Routine 12/23/2023 9:55 AM EDT Encounter for routine history and physical examination of adult LIPID PANEL, STANDARD Routine 12/23/2023 9:55 AM EDT Type 2 diabetes mellitus with hyperglycemia, without long-term current use of insulin (CMS/HCC) from Last 3 Months or Most Recently Relevant to Health Maintenance Results * D Dimer High Sensitivity (08/26/2024 2:29 PM EST) D Dimer High Sensitivity <150 NG/ML [facility] Comment:D-DIMER HS REFERENCE RANGENote: Our assay reports D-Dimer Units (D- DU).The cut-off value for venous thromboembolic (VTE) disease is230 ng/mL. This value has a very high negative predictivevalue when the patient has a low to moderate clinicalprobability of VTE.The upper limit of normal is 243 ng/mL. 08/26/2024 2:29 PM EST 08/26/2024 4:04 PM EST us Generic External Data Provider LAB BLOOD ORDERAB LES Final Result [facility] [address] [place] [address] [phone] * (ABNORMAL) CBC auto differential (08/26/2024 2:29 PM EST) White Blood Count 7.3 4.8 - 10.8 X10*3/uL [facility] Red Blood Count 5.74 4.60 - 5.80 X10*6/uL [facility] Hemoglobin 16.3 14.0 - 18.0 g/dl [facility] Hematocrit 49.8 42.0 - 52.0 % [facility] Mean Corpuscular Volume 86.8 80.0 - 98.0 fL [facility] Mean Corpuscular Hemoglobin 28.4 27.0 - 33.0 pg [facility] Mean Corpuscular HGB Conc 32.7 31.0 - 36.0 g/dl [facility] Red Cell Distribution Width 14.0 11.0 - 16.0 % [facility] Platelet Count 163 160 - 400 X10*3/uL [facility] Mean Platelet Volume 12.7(H) 9.4 - 12.4 fL [facility] Neutrophils Percent Auto 68.7 45 - 73 % [facility] Imm Gran Pct Auto 0.4 0.0 - 0.4 % [facility] Lymphocytes Percent Auto 24.0 20 - 40 % [facility] Monocytes Percent Auto 5.7 2 - 11 % [facility] Eosinophils Percent Auto 0.8 0 - 4 % [facility] Basophils Percent Auto 0.4 0 - 2 % [facility] NRBC Pct Auto 0.0 0.0 - 0.2 /100WBC [facility] Neutrophils Absolute Auto 5.0 2.0 - 8.3 x10*3/uL [facility] Imm Gran Abs Auto 0.03 0.00 - 0.03 X10*3/uL [facility] Lymphocytes Absolute Auto 1.8 1.2 - 4.9 X10*3/uL [facility] Monocytes Absolute Auto 0.4 0.1 - 1.2 X10*3/uL [facility] Eosinophils Absolute Auto 0.1 0.0 - 0.4 X10*3/uL [facility] Basophils Absolute Auto 0.0 0.0 - 0.2 X10*3/uL [facility] NRBC Abs Auto 0.000 0.0 - 0.012 X10*3/uL [facility] 08/26/2024 2:29 PM EST 08/26/2024 4:04 PM EST us Generic External Data Provider LAB BLOOD ORDERAB LES Final Result Performing Organization Address City/[facility]/ZIP Co de Phone Number [facility] [address] [place] [phone] * (ABNORMAL) Urine Protein, Total, Random without Creatinine (08/26/2024 2:29 PM EST) Protein, Total, Random Urine 49(H) <12 mg/dL [facility] Urine Urine specimen obtained by clean catch procedure / Unknown 08/26/2024 2:29 PM EST 08/26/2024 4:31 PM EST us Toya Marinelli MD LAB URINE ORDERABLES Final Result Performing Organization Address City/[facility]/ZIP Co de Phone Number [facility] [address] [place] [phone] * (ABNORMAL) Uric acid (08/26/2024 2:29 PM EST) Uric Acid 7.9(H) 3.4 - 7.0 mg/dL [facility] Blood Venous blood specimen / Unknown 08/26/2024 2:29 PM EST 08/26/2024 4:04 PM EST us Sabine Hao VOIP NETWORK TECHNICIAN LAB BLOOD ORDERABLES Final Res ult [facility] [address] [place] [address] [phone] * (ABNORMAL) Comprehensive Metabolic Panel (08/26/2024 2:29 PM EST) Sodium 139 135 - 145 mmol/L [facility] Potassium 4.8 3.3 - 5.1 mmol/L [facility] Chloride 107 96 - 108 mmol/L [facility] Carbon Dioxide 26 22 - 29 mmol/L [facility] Anion Gap 11(L) 12 - 20 [facility] Urea Nitrogen (BUN) 22(H) 9 - 16 mg/dL [facility] Creatinine, Serum 1.59(H) 0.5 - 1.4 mg/dL [facility] Estimated Glomerular Filt Rate 45 [facility] Comment:Chronic Kidney Disea se: Estimated GFR < 60 mL/min/1.82b9Bgikwo Kidney Disease: Estimated GFR < 15 mL/min/1.73m2 Glucose 194(H) 60 - 115 mg/dL [facility] Calcium 9.6 8.4 - 10.2 mg/dL [facility] Bilirubin, Total 0.7 0.0 - 1.0 mg/dL [facility] Aspartate Amino Transferase 39(H) 5 - 37 U/L [facility] Alanine Aminotransferase 45(H) 0 - 40 U/L [facility] Total Protein 8.2(H) 6.5 - 8.0 g/dL [facility] Albumin Level 4.2 3.5 - 5.0 g/dL [facility] Alkaline Phosphatase 68 39 - 117 U/L [facility] 08/26/2024 2:29 PM EST 08/26/2024 4:04 PM EST us Generic External Data Provider LAB BLOOD ORDERAB LES Final Result [facility] [address] [place] [phone] * POCT Urinalysis (08/23/2024 6:39 PM EST) [...] 10:00 AM EDT) Creatinine, Urine 119.19 mg/dL [facility] Microalbumin Urine 140.0 mg/L H [facility] Microalbum Creatinine Ratio Ur 117.4(H) <30 ug/mg cr [facility] Comment:Albumin/Creatinine R atio Reference Ranges: Normal: < 30 ug/mg creatinine Microalbuminuria: 30 - 300 ug/mg creatinineClinical Albuminuria: > 300 ug/mg creatinine Urine (Urine, Random) 12/23/2023 10:00 AM EDT 12/23/2023 11:21 AM EDT Sabine St[employer]Cyteapollo VOIP NETWORK TECHNICIAN LAB URINE ORDERABLES Final Res ult Performing Organization Address [facility] de Phone Number [facility] [address] [place] [address] [phone] * Hepatitis C Viral RNA, Quantitative, Real-Time PCR (12/23/2023 9:55 AM EDT) Hepatitis C Viral Load <15 NOT DETECTED NOT DETECTED IU/mL [facility] HCV Log PCR <1.18 NOT DETECTED NOT DETECTED Log IU/mL [facility] Comment:For additional infor matdebbie, please refer [email or web address]/faq/[email or web address](This link is being provided for informational/educational purposes only.)THIS TEST WAS PERFORMED AT:[address] [place] [id number] NAZARIO MD Blood 12/23/2023 9:55 AM EDT 12/23/2023 11:20 AM EDT Sabine StemCyteapollo [facility] BLOOD ORDERABLES Final Res ult Performing Organization Address [facility] Co de Phone Number [facility] [address] [place] [phone] * HIV-1/2 Antigen and Antibodies, Fourth Generation, with Reflexes (12/23/2023 9:55 AM EDT) HIV AB/AG Nonreactive Nonreactive [facility] Comment:HIV-1 p24 Ag and/or HIV-1/HIV-2 Ab not detected.A test result that is nonreactive does not exclude thepossibility of exposure to or infection with HIV-1 and/orHIV-2. Nonreactive results in this assay for individualswith prior exposure to HIV-1 and/or HIV-2 may be due toantigen and antibody levels that are below the limit ofdetection of this assay.The [employer] HIV Ag/Ab Combo assay result andsupplemental assay results should be interpreted inconjunction with the patient's clinical presentation,history and other laboratory results. If the results areinconsistent with clinical evidence, additional testing issuggested to confirm the result. Blood Venous blood specimen / Unknown 12/23/2023 9:55 AM EDT 12/23/2023 11:20 AM EDT us Sabine Bui VOIP NETWORK TECHNICIAN LAB BLOOD ORDERABLES Final Res ult [facility] [address] [place] [phone] * (ABNORMAL) Lipid Panel, Standard (12/23/2023 9:55 AM EDT) Triglycerides 215(H) <150 mg/dL [facility] Comment:Desirable Triglyceri de: less than 150 mg/dLBorderline High Triglyceride 150-199 mg/dLHigh Triglyceride: 200-499 mg/dLVery High Triglyceride: greater than or equal to 5OO mg/dL Cholesterol 167 <200 mg/dL [facility] Comment:Desirable Cholestero l: less than 200 mg/dLBorderline High Cholesterol: 200-239 mg/dLHigh Cholesterol: greater than 239 mg/dL LDL Cholesterol Calculated 91 <100 mg/dL [facility] Comment:Desirable LDL: less than 100 mg/dLNear Optimal/Above Optimal LDL: 110- 129 mg/dLBorderline High LDL: 130-159 mg/dLHigh LDL: 160-189 mg/dLVery High LDL: greater than or equal to 190 mg/dL HDL Cholesterol 33(L) >40 mg/dL [facility] Comment:Desirable HDL: great er than 40 mg/dL Note: This HDL assay may give artificially low results in patients with liver disease. Blood Venous blood specimen / Unknown 12/23/2023 9:55 AM EDT 12/23/2023 11:20 AM EDT us Sabine Bui VOIP NETWORK TECHNICIAN LAB BLOOD ORDERABLES Final Res ult [facility] [address] [place] [phone] from Last 3 Months or Most Recently Relevant to Health Maintenance Insurance [facility] Care Teams Welding Machine Operator Electro Gas Relationship Specialty Start Date End Date Sabine Bui FNP [address] [place] [address] PCP - General Family Medicine 02/24/22
--- OUTSIDE RECORDS SUMMARY | 2024-08-26 17:40 | XMS_ITS | Encounter Summary ---
Author Organization [employer] Address [address] [facility] 7t [place] [address] Care Team Providers Care Dean Of Faculty Name Role Phone Sabine Bui Primary Care Provider [phone] Reason for Visit * Reason Comments Med Change Request Encounter Details Date Type Department Care Team ([facility] Contact Info) Description 10/16/2022 Refill [facility] [address] [place], [place] [phone] Mynor Ventura MD [address] [place] [address] Social History Tobacco Use Types Packs/Day Years [...] Description 09/27/2024 4:00 PM EDT Office Visit [facility] [address] [place], [place] [phone] Sabine Bui FNP [address] [place] [address] documented as of this encounter Visit Diagnoses Not on filedocumented in this encounter Care Teams Dean Of Faculty Relationship Specialty Start Date End Date Sabine Bui FNP [address] [place] [address] PCP - General Family Medicine 02/24/22 documented as of this encounter
--- OUTSIDE RECORDS SUMMARY | 2024-08-26 17:40 | XMS_ITS | Encounter Summary ---
Author Organization [employer] Address [address] [facility] 7t [place] [address] Care Team Providers Care Inside Sales Supervisor Name Role Phone [employer] Sabine ALEXANDRA Primary Care Provider [phone] Reason for Visit * Reason Comments Back Pain Encounter Details Date Type Department Care Team ([facility] st Contact Info) Description 08/23/2024 5:20 PM EST Office Visit [facility] [address] [place] [address] Toya Marinelli MD [address] [place] [address] Other acute back pain (Primary Dx); Type 2 diabetes mellitus with hyperglycemia, without long-term current use of insulin ([facility]) Social History Tobacco Use Types Packs/Day Years [...] long-term current use of insulin ([facility]) Comments: Uncontrolled Low carb diet further management [...] [facility] [address] [place] [address] Sabine Bui, SOLAR ENERGY INSTALLATION MANAGER [address] [place] [address] Scheduled Orders Name Type Priority Associated Diagnoses Orde r Schedule Basic Metabolic Panel Lab Routine Other acute back pain Expected: 08/23/2024 (Approximate), Expires: 08/23/2025 POCT INR Point of Care Testing Routine Other acute back pain Ordered: 08/23/2024 documented as of this encounter Procedures Procedure Name Priority Date/Time Associated Diagnosis Comments URINE PROTEIN, TOTAL, RANDOM (W/O CREATININE) Routine 08/26/2024 2:29 PM EST Other acute back pain POCT URINALYSIS DIPSTICK Routine 08/23/2024 6:39 PM EST Other acute back pain POCT GLYCATED HEMOGLOBIN, TOTAL Routine 08/23/2024 6:36 PM EST Type 2 diabetes mellitus with hyperglycemia, without long-term current use of insulin ([facility]) POCT GLUCOSE Routine 08/23/2024 6:32 PM EST Other acute back pain documented in this encounter Results * (ABNORMAL) Urine Protein, Total, Random without Creatinine (08/26/2024 2:29 PM EST) Protein, Total, Random Urine 49(H) <12 mg/dL [facility] Urine Urine specimen obtained by clean catch procedure / Unknown 08/26/2024 2:29 PM EST 08/26/2024 4:31 PM EST Toya Marinelli MD LAB URINE ORDERABLES Final Result Performing Organization Address City/State/[facility] Co de Phone Number [facility] [address] [place] [phone] * POCT Urinalysis (08/23/2024 6:39 PM [...] (ABNORMAL) POCT Glucose (08/23/2024 6:32 PM EST) [facility] Glucose Blood, POC 218(A) 60 - 200 [...] long-term current use of insulin ([facility]) documented in this encounter Additional Health Concerns Assessment Noted Time PHQ-9 Depression Total Score: 0 12/03/19 23 10:09 AM EDT documented as of this encounter Care Teams Inside Sales Supervisor Relationship Specialty Start Date End Date Sabine Bui FNP [address] [place] [address] PCP - General Family Medicine 02/24/22 documented as of this encounter
--- OUTSIDE RECORDS SUMMARY | 2024-08-26 17:40 | XMS_ITS | Encounter Summary ---
Author Organization [facility] Address [address] [place] [address] Phone Care Team Providers Care Facilities Custodian Name Role Phone Mynor Ventura MD Primary Care Provider [phone] Encounter Details Date Type Department Care Team (Late st Contact Info) Description 12/18/2021 Documentation Only [facility], [address] [place] [address] Yamile Pierson, RN Social History [...] on filedocumented in this encounter Care Teams Facilities Custodian Relationship Specialty Start Date End Date Mynor Ventura MD [address] [place] [phone] PCP - General Emergency Medicine 10/31/22 documented as of this encounter
--- OUTSIDE RECORDS SUMMARY | 2024-08-26 17:40 | XMS_ITS | Encounter Summary ---
Author Organization [employer] Address [address] [facility] 7t [place] [address] Care Team Providers Care Ward Helper Name Role Phone Sabine Bui Primary Care Provider [phone] Reason for Visit * Reason Comments Med Refill Encounter Details Date Type Department Care Team ([facility] st Contact Info) Description 07/29/2024 Refill [facility] [address] [place] [address] Sabine Bui FNP [address] [place], [place] [phone] Social History Tobacco Use Types Packs/Day Years [...] Description 09/27/2024 4:00 PM EDT Office Visit [facility] [address] [place] [address] Sabine Bui FNP [address] [place] [address] documented as of this encounter Visit Diagnoses Not on filedocumented in this encounter Additional Health Concerns Assessment Noted Time PHQ-9 Depression Total Score: 0 12/03/19 23 10:09 AM EDT documented as of this encounter Care Teams Ward Helper Relationship Specialty Start Date End Date Sabine Bui FNP [address] [place] [address] PCP - General Family Medicine 02/24/22 documented as of this encounter
--- OUTSIDE RECORDS SUMMARY | 2024-08-26 17:40 | XMS_ITS | Encounter Summary ---
Author Organization [employer] Address [address] [place] [address] 7 [place] [address] Care Team Providers Care Orthotic Finish Grinding Technician Name Role Phone Sabine Bui Primary Care Provider [phone] Reason for Visit * Reason Onset Date Comments ER Follow-up 08/21/2023 Encounter Details Date Type Department Care Team ([facility] st Contact Info) Description 08/21/2023 Telephone [facility] MED & PEDS [address] [place], [place] [phone] Sabine Bui FNP [address] [place] [address] ER Follow-up Social History Tobacco Use Types [...] reviewed - thank you. Awaiting notes from [facility] for further review. Glad he is scheduled [...] pain. Unable to understand all of his Guyanese and asked for permission to call patient back with piano mechanic apprentice line, but patient declined because he is [...] to PCP for her review. Notes from [facility] not yet in chart. ARLETTE Jacobson [...] message below. No answer. LM in both Central African and Guyanese to call us back to let us know how he is doing and schedule a f/u visit with PCP. Notes being requested by fax from [facility] by ARLETTE Jacobson. Routing back to [facility] nurses to try again to schedule ED f/u. Patient calling to report ED visit on : Date: 08/20 Hospital: [facility] Seen for: Chest pain Patient advised will forward to team nurse for follow up Please contact pt at [phone] (Guyanese) * Telephone Encounter - Toya Ring - 08/21/2023 10:55 AM EST Patient calling to report ED visit on : Date: 08/20 [facility]: [facility] Seen for: Chest pain Patient advised will forward to team nurse for follow up Please contact pt at [phone] (Guyanese) documented in this encounter Plan of Treatment Upcoming Encounters Date Type Department Care Team (Late st Contact Info) Description 09/27/2024 4:00 PM EDT Office Visit [facility] MED & PEDS [address] [place] [address] Sabine Bui FNP [address] [place] [address] documented as of this encounter Visit Diagnoses Not on filedocumented in this encounter Additional Health Concerns Assessment Noted Time PHQ-9 Depression Total Score: 0 12/03/19 23 10:09 AM EDT documented as of this encounter Care Teams Orthotic Finish Grinding Technician Relationship Specialty Start Date End Date Sabine Bui FNP [address] [place] [address] PCP - General Family Medicine 02/24/22 documented as of this encounter
--- OUTSIDE RECORDS SUMMARY | 2024-08-26 17:40 | XMS_ITS | Encounter Summary ---
Author Organization [facility] Address [address] [place] [address] 7t [place] [address] Care Team Providers Care Psych Sales Specialist Name Role Phone Sabine Bui Primary Care Provider [phone] Encounter Details Date Type Department Care Team (Late st Contact Info) Description 10/16/2022 Orders Only [facility] MED & PEDS [address] [place] [address] Safia Cuba LPN Social History Tobacco Use [...] Description 09/27/2024 4:00 PM EDT Office Visit [facility] MED & PEDS [address] [place] [address] Sabine Bui FNP [address] [place] [address] documented as of this encounter Visit Diagnoses Not on filedocumented in this encounter Care Teams Psych Sales Specialist Relationship Specialty Start Date End Date Sabine Bui FNP [address] [place] [address] PCP - General Family Medicine 02/24/22 documented as of this encounter
--- OUTSIDE RECORDS SUMMARY | 2024-08-26 17:40 | XMS_ITS | Encounter Summary ---
Author Organization [employer] Address [address] [facility] 7 [place] [address] Care Team Providers Care Torque Tester Name Role Phone HaoSabine QUARTER BACKER Primary Care Provider [phone] Encounter Details Date Type Department Care Team (Late st Contact Info) Description 08/25/2024 Orders Only [facility] MEDICINE [address] [place] [address] Toya Marinelli MD [address] [place] [address] Other acute back pain Social History Tobacco Use Types Packs/Day Years [...] Description 09/27/2024 4:00 PM EDT Office Visit [facility] MED & PEDS [address] [place] [address] Sabine Bui FNP [address] [place] [address] documented as of this encounter Visit Diagnoses Diagnosis Other acute back pain documented in this encounter Additional Health Concerns Assessment Noted Time PHQ-9 Depression Total Score: 0 12/03/19 23 10:09 AM EDT documented as of this encounter Care Teams Torque Tester Relationship Specialty Start Date End Date Sabine Bui FNP [address] [place] [address] PCP - General Family Medicine 02/24/22 documented as of this encounter
--- OUTSIDE RECORDS SUMMARY | 2024-08-26 17:40 | XMS_ITS | Encounter Summary ---
Author Organization [employer] Address [address] [facility] 7 [place] [address] Care Team Providers Care Gear Grinder Name Role Phone AvivaSabine bustillos ALEXANDRA Primary Care Provider [phone] Reason for Visit * Reason Onset Date Comments wrong specimen received 08/24/2024 Encounter Details Date Type Department Care Team ([facility] st Contact Info) Description 08/24/2024 Telephone [facility] MEDICINE [address] [place] [address] Toya Marinelli MD [address] [place] [address] wrong specimen received Social History Tobacco Use [...] 08/24/2024 2:08 PM EST Incoming call from [facility] Lab (Dai) to informed that order for Urine protein is cancel due to they received a urine culture tube instead of the regular UA cup.. Please notify [facility] if needs recollection.Thank you. documented in this encounter Plan of Treatment Upcoming Encounters Date Type Department Care Team ([facility] st Contact Info) Description 09/27/2024 4:00 PM EDT Office Visit [facility] MED & PEDS [address] [place] [address] Sabine Bui FNP [address] [place] [address] documented as of this encounter Visit Diagnoses Not on filedocumented in this encounter Additional Health Concerns Assessment Noted Time PHQ-9 Depression Total Score: 0 12/03/19 23 10:09 AM EDT documented as of this encounter Care Teams Gear Grinder Relationship Specialty Start Date End Date Sabine Bui FNP [address] [place] [address] PCP - General Family Medicine 02/24/22 documented as of this encounter
--- OUTSIDE RECORDS SUMMARY | 2024-08-26 17:40 | XMS_ITS | Encounter Summary ---
Author Organization [employer] Address [address] [facility] 7t [place] [address] Care Team Providers Care Data Processing Systems Project Planner Name Role Phone Sabine Bui Primary Care Provider Reason for Visit * Reason Onset Date Comments Nurse Triage 08/23/2024 Encounter Details Date Type Department Care Team ([facility] st Contact Info) Description 08/23/2024 Telephone [facility] MEDICINE [address] [place] [address] Sabine Bui FNP [address] [place] [address] Nurse Triage Social History Tobacco Use Types [...] 4:06 PM EST Called pt. [address] interpreter [phone] Alanis. No answer. Torch Shearer left message for pt. To call back [facility] nurses at [phone]. Torch Shearer called pt. Back x2. Pt. States that [...] to be seen. Advised that [facility] walk in is open until 730pm tonight. Pt states he will arrive around 530pm. Protocol Used: Flank Pain (Adult) Protocol-Based Disposition: See in Office or Video Visit Today- Pt. Will go to [facility] walk in. Video visit offer [...] 3 days The caller accepted this outcome. [phone] (hong konger) documented in this encounter Plan of Treatment Upcoming Encounters Date Type Department Care Team (Late st Contact Info) Description 09/27/2024 4:00 PM EDT Office Visit [facility] MED & PEDS [address] [place] [address] Sabine Bui FNP [address] [place] [address] documented as of this encounter Visit Diagnoses Not on filedocumented in this encounter Additional Health Concerns Assessment Noted Time PHQ-9 Depression Total Score: 0 12/03/19 23 10:09 AM EDT documented as of this encounter Care Teams Data Processing Systems Project Planner Relationship Specialty Start Date End Date Sabine Bui FNP [address] [place] [address] PCP - General Family Medicine 02/24/22 documented as of this encounter
--- OUTSIDE RECORDS SUMMARY | 2024-08-26 17:40 | XMS_ITS | Encounter Summary ---
Author Organization [employer] Address [address] [facility] 7 [place] [address] Care Team Providers Care Nutrition Director Name Role Phone AvivaSabine bustillos ALEXANDRA Primary Care Provider [phone] Reason for Visit * Reason Onset Date Comments Lab Orders 08/25/2024 Encounter Details Date Type Department Care Team ([facility] st Contact Info) Description 08/25/[address] [facility] MEDICINE [address] [place] [address] Toya Marinelli MD [address] [place] [address] Lab Orders Social History Tobacco Use Types Packs/Day Years [...] encounter Miscellaneous Notes * Telephone Encounter - Gianna Funes MA - 08/25/2024 4:03 PM EST Spoke with patient let him know will need to have Blood work and Urine test done. Patient states will come in tomorrow 08/26/24 and have it done. I given Urine order to technical healthcare consultant. documented in this encounter Plan of Treatment Upcoming Encounters Date Type Department Care Team (Late st Contact Info) Description 09/27/2024 4:00 PM EDT Office Visit [facility] MED & PEDS [address] [place] [address] Sabine Bui FNP [address] [place] [address] documented as of this encounter Visit Diagnoses Not on filedocumented in this encounter Additional Health Concerns Assessment Noted Time PHQ-9 Depression Total Score: 0 12/03/19 23 10:09 AM EDT documented as of this encounter Care Teams Nutrition Director Relationship Specialty Start Date End Date Sabine Bui FNP [address] [place] [address] PCP - General Family Medicine 02/24/22 documented as of this encounter
--- OUTSIDE RECORDS SUMMARY | 2024-08-26 17:40 | XMS_ITS | Encounter Summary ---
Author Organization [employer] Address [address] [facility] 7t [place] [address] Care Team Providers Care Gas Engine Performance Engineer Name Role Phone Sabine Bui ALEXANDRA Primary Care Provider [phone] Encounter Details Date Type Department Care Team (Late st Contact Info) Description 08/26/2024 Orders Only GENERIC EXTERNAL DATA DEPARTMENT Provider, Generic External Data Social History Tobacco Use Types Packs/Day Years [...] 4:00 PM EDT Office Visit [facility] MED & PEDS [address] [place], [place] [phone] Sabine Bui FNP [address] [place] [address] documented as of this encounter Procedures Procedure Name Priority Date/Time Associated Diagnosis Comments D DIMER HIGH SENSITIVITY Routine 08/26/2024 2:29 PM EST CBC WITH AUTO DIFFERENTIAL Routine 08/26/2024 2:29 PM EST COMPREHENSIVE METABOLIC PANEL Routine 08/26/2024 2:29 PM EST documented in this encounter Results * (ABNORMAL) Comprehensive Metabolic Panel (08/26/2024 2:29 PM EST) Sodium 139 135 - 145 mmol/L [facility] Potassium 4.8 3.3 - 5.1 mmol/L [facility] Chloride 107 96 - 108 mmol/L [facility] Carbon Dioxide 26 22 - 29 mmol/L [facility] Anion Gap 11(L) 12 - 20 [facility] Urea Nitrogen (BUN) 22(H) 9 - 16 mg/dL [facility] Creatinine, Serum 1.59(H) 0.5 - 1.4 mg/dL [facility] Estimated Glomerular Filt Rate 45 [facility] Comment:Chronic Kidney Disea se: Estimated GFR < 60 mL/min/1.50d0Tceyde Kidney Disease: Estimated GFR < 15 mL/min/1.73m2 Glucose 194(H) 60 - 115 mg/dL [facility] Calcium 9.6 8.4 - 10.2 mg/dL [facility] Bilirubin, Total 0.7 0.0 - 1.0 mg/dL [facility] Aspartate Amino Transferase 39(H) 5 - 37 U/L [facility] Alanine Aminotransferase 45(H) 0 - 40 U/L [facility] Total Protein 8.2(H) 6.5 - 8.0 g/dL [facility] Albumin Level 4.2 3.5 - 5.0 g/dL [facility] Alkaline Phosphatase 68 39 - 117 U/L [facility] 08/26/2024 2:29 PM EST 08/26/2024 4:04 PM EST Generic External Data Provider LAB BLOOD ORDERAB LES Final Result [facility] [address] [place] [phone] * D Dimer High Sensitivity (08/26/2024 2:29 PM EST) D Dimer High Sensitivity <150 NG/ML [facility] Comment:D-DIMER HS REFERENCE RANGENote: Our assay reports D-Dimer Units (D- DU).The cut-off value for venous thromboembolic (VTE) disease is230 ng/mL. This value has a very high negative predictivevalue when the patient has a low to moderate clinicalprobability of VTE.The upper limit of normal is 243 ng/mL. 08/26/2024 2:2 9 PM EST 08/26/2024 4:04 PM EST us Generic External Data Provider LAB BLOOD ORDERAB LES Final Result [facility] [address] [place], [place] [phone] * (ABNORMAL) CBC auto differential (08/26/2024 2:29 PM EST) White Blood Count 7.3 4.8 - 10.8 X10*3/uL [facility] Red Blood Count 5.74 4.60 - 5.80 X10*6/uL [facility] Hemoglobin 16.3 14.0 - 18.0 g/dl [facility] Hematocrit 49.8 42.0 - 52.0 % [facility] Mean Corpuscular Volume 86.8 80.0 - 98.0 fL [facility] Mean Corpuscular Hemoglobin 28.4 27.0 - 33.0 pg [facility] Mean Corpuscular HGB Conc 32.7 31.0 - 36.0 g/dl [facility] Red Cell Distribution Width 14.0 11.0 - 16.0 % [facility] Platelet Count 163 160 - 400 X10*3/uL [facility] Mean Platelet Volume 12.7(H) 9.4 - 12.4 fL [facility] Neutrophils Percent Auto 68.7 45 - 73 % [facility] Imm Gran Pct Auto 0.4 0.0 - 0.4 % [facility] Lymphocytes Percent Auto 24.0 20 - 40 % [facility] Monocytes Percent Auto 5.7 2 - 11 % [facility] Eosinophils Percent Auto 0.8 0 - 4 % [facility] Basophils Percent Auto 0.4 0 - 2 % [facility] NRBC Pct Auto 0.0 0.0 - 0.2 /100WBC [facility] Neutrophils Absolute Auto 5.0 2.0 - 8.3 x10*3/uL [facility] Imm Gran Abs Auto 0.03 0.00 - 0.03 X10*3/uL [facility] Lymphocytes Absolute Auto 1.8 1.2 - 4.9 X10*3/uL [facility] Monocytes Absolute Auto 0.4 0.1 - 1.2 X10*3/uL [facility] Eosinophils Absolute Auto 0.1 0.0 - 0.4 X10*3/uL [facility] Basophils Absolute Auto 0.0 0.0 - 0.2 X10*3/uL [facility] NRBC Abs Auto 0.000 0.0 - 0.012 X10*3/uL [facility] 08/26/2024 2:29 PM EST 08/26/2024 4:04 PM EST us Generic External Data Provider LAB BLOOD ORDERAB LES Final Result Performing Organization Address City/State/RUST Co de Phone Number [facility] [address] [place] [address] [phone] documented in this encounter Visit Diagnoses Not on filedocumented in this encounter Additional Health Concerns Assessment Noted Time PHQ-9 Depression Total Score: 0 12/03/19 23 10:09 AM EDT documented as of this encounter Care Teams Gas Engine Performance Engineer Relationship Specialty Start Date End Date Sabine Bui FNP [address] [place] [address] PCP - General Family Medicine 02/24/22 documented as of this encounter
--- OUTSIDE RECORDS SUMMARY | 2024-08-26 17:40 | XMS_ITS | Encounter Summary ---
Author Organization [employer] Address [address] [facility] 7t [place] [address] Care Team Providers Care Dolphin Trainer Name Role Phone Sabine Bui Primary Care Provider [phone] Reason for Visit * Reason Comments Med Refill Encounter Details Date Type Department Care Team ([facility] st Contact Info) Description 06/07/2024 Refill [facility] MEDICINE [address] [place] [address] Sabine Bui FNP [address] [place] [address] Social History Tobacco Use Types Packs/Day Years [...] Description 09/27/2024 4:00 PM EDT Office Visit [facility] MED & PEDS [address] [place] [address] Sabine Bui FNP [address] [place] [address] documented as of this encounter Visit Diagnoses Not on filedocumented in this encounter Additional Health Concerns Assessment Noted Time PHQ-9 Depression Total Score: 0 12/03/19 23 10:09 AM EDT documented as of this encounter Care Teams Dolphin Trainer Relationship Specialty Start Date End Date Sabine Bui FNP [address] [place] [address] PCP - General Family Medicine 02/24/22 documented as of this encounter
--- OUTSIDE RECORDS SUMMARY | 2024-08-26 17:40 | XMS_ITS | Encounter Summary ---
Author Organization [employer] Address [address] [place] [address] 7t [place] [address] Care Team Providers Care Relief Pharmacist Name Role Phone Sabine Bui Primary Care Provider [phone] Reason for Visit * Reason Comments Med Refill Encounter Details Date Type Department Care Team (Late Contact Info) Description 03/28/2023 Refill [facility] [address] [place], [place] [phone] [facility] [address] [place] [address] Social History Tobacco Use Types Packs/Day Years [...] Description 09/27/2024 4:00 PM EDT Office Visit [facility] MED & PEDS [address] [place] [address] Sabine Bui FNP [address] [place] [address] documented as of this encounter Visit Diagnoses Not on filedocumented in this encounter Additional Health Concerns Assessment Noted Time PHQ-9 Depression Total Score: 0 12/03/19 23 10:09 AM EDT documented as of this encounter Care Teams Relief Pharmacist Relationship Specialty Start Date End Date Sabine Bui FNP [address] [place] [address] PCP - General Family Medicine 02/24/22 documented as of this encounter
--- OUTSIDE RECORDS SUMMARY | 2024-08-26 17:40 | XMS_ITS | Encounter Summary ---
Author Organization [facility] Address [address] [place] [address] 7t [place] [address] Care Team Providers Care Receptionist Secretary Name Role Phone Sabine Bui Primary Care Provider [phone] Reason for Visit * Reason Onset Date Comments ER Follow-up 02/12/2023 Encounter Details Date Type Department Care Team (Late st Contact Info) Description 02/12/2023 Telephone [facility] MEDICINE [address] [place] [address] Sabine Bui FNP [address] [place] [address] ER Follow-up Social History Tobacco Use Types [...] Sent to team to attempt to obtain [facility] notes for provider review. Protocol Used: [...] to report ED visit on 02/12/[address] [facility]. Seen for leg pain and swelling (left). Patient advised will forward to team nurse for follow up. Symptom: Leg Swelling - Not From Injury Outcome: Schedule an urgent appointment (within 1 hour) or talk to a nurse or provider soon Reason: Severe leg pain now The caller accepted this outcome Patient speaks malawian. documented in this encounter Plan of Treatment Upcoming Encounters Date Type Department Care Team (Late st Contact Info) Description 09/27/2024 4:00 PM EDT Office Visit [facility] MED & PEDS [address] [place], [place] [phone] Sabine Bui FNP [address] [place], [place] [phone] documented as of this encounter Visit Diagnoses Not on filedocumented in this encounter Additional Health Concerns Assessment Noted Time PHQ-9 Depression Total Score: 0 12/03/19 23 10:09 AM EDT documented as of this encounter Care Teams Receptionist Secretary Relationship Specialty Start Date End Date Sabine Bui FNP [address] [place] [address] PCP - General Family Medicine 02/24/22 documented as of this encounter
== END 2024-08-26 14:27 | disposition home or self-care (01) ==
LOC: HO.HHCL 14:26
PROVIDERS: Internal Medicine Medical Oncology; Registered Nurse; Visit Provider Internal Medicine
DX: M54.89 Other dorsalgia (principal); I26.99 Other pulmonary embolism without acute cor pulmonale; M10.9 Gout, unspecified
CPT/HCPCS: 36415; 80053; 84156; 84550; 85025; 85379

== ENCOUNTER 2025-02-23 14:41 | Outpatient (REF) | payer OTHER, SELFPAY ==
--- OUTSIDE RECORDS SUMMARY | 2025-02-21 23:59 | XMS_ITS | Encounter Summary ---
Author Organization [employer] Address [address] [place] [address] Care Team Providers Care Research Consultant Name Role Phone Toya Marinelli MD Primary Care Provider [phone] Reason for Visit * Reason Comments Hyperglycemia Blood sugar is readi ng high Encounter Details Date Type Department Care Team (Late st Contact Info) Description 02/21/2025 11:59 PM EDT - 02/22/2025 1:31 AM EDT Emergency [facility] Emergency [address] [place] [id number] Emanuel Curtis MD [address] [place] [address] Hyperglycemia (Primary Dx) Discharge Disposition: Home or Self Care Social History Tobacco Use Types Packs/Day Years Used Date Smoking Tobacco: Never Alcohol Use Standard Drinks/Week Comments Yes 0 (1 standard drink = 0.6 oz pur e alcohol) Sex and Gender Information Value Date Recorded Sex Assigned at Not on file Legal Sex Male 1:57 PM EST Gender Identity Not on file Sexual Orientation Not on file documented as of this encounter Last Filed Vital Signs Vital Sign Reading Time Taken Comments Blood Pressure 163/89 02/21/2025 10:03 PM EDT Pulse 52 02/21/2025 10:03 PM EDT Temperature 36.5 C (97.7 F) 02/21/2025 10:03 PM EDT Respiratory Rate 18 02/21/2025 10:03 PM EDT Oxygen Saturation 100% 02/22/2025 12:05 AM EDT Inhaled Oxygen Concentration - - Weight 104 kg (230 lb) 02/21/2025 6:09 PM EDT Height 180.3 cm (5' 11 ) 02/21/2025 6:09 PM EDT Body Mass Index 32.08 02/21/2025 6:09 PM EDT documented in this encounter Discharge Instructions * Discharge Instructions* Emanuel Arellano MD - 02/22/2025 1:25 AM EDT You were seen in the ER for evaluation of your high blood sugar. We gave you medication which significantly improved your symptoms. Please take your prescriptions as prescribed including your insulin. Please follow-up with your PCP for recent visit and return to the ER with new, worsening or concerning symptoms. documented in this encounter Discharge Disposition Disposition Code Departure Means Destination Comment s Home or Self Care documented in this encounter Progress Notes * Glenis Turner RN - 02/21/2025 6:08 PM EDT Patient has been feeling unwell for 3 days now. Nauseous, increased urination, and dry mouth. Hx ofdiabetes, fsbg 500s at home. Patient administered 14 units of insulin at home before coming in. FSBG 512 at triage. * Emanuel Arellano MD - 02/21/2025 6:03 PM EDT HPI Chief Complaint Patient presents with Hyperglycemia Blood sugar is reading high 59-year-old male with a history of type 2 diabetes presents to the ED with hyperglycemia. Patient states that he checked his blood sugar at home and the machine read high. He is on metformin and insulin. He states he takes the insulin as needed. He last took 14 units of insulin today after the machine read high. He also complains of dizziness, increased thirst and frequent urination. Denies fever, chills, nausea or vomiting. Denies use of any illicit drugs. No data recorded Patient History History reviewed. No pertinent past medical history. Past Surgical History: Procedure Laterality Date BACK SURGERY PROCEDURE: HISTORICAL BACK SURGERY; COMMENT: LS DISC HERNIATION EYE SURGERY PROCEDURE: HISTORICAL EYE SURGERY; COMMENT: right eye pterygium No family history on file. Social History Tobacco Use Smoking status: Never Smokeless tobacco: Not on file Substance Use Topics Alcohol use: Yes Drug use: No Review of Systems Review of Systems All other systems reviewed and are negative. Physical Exam ED Triage Vitals [02/21/25 1809] Temp Heart Rate Resp BP 36.4 ??C (97.5 ??F) 60 18 (!) 144/72 SpO2 Temp Source Heart Rate Source Patient Position 99 % Oral -- Sitting BP Location FiO2 (%) Right arm;Upper -- Physical Exam Constitutional: Appearance: Normal appearance. HENT: Head: Normocephalic and atraumatic. Eyes: Extraocular Movements: Extraocular movements intact. Conjunctiva/sclera: Conjunctivae normal. Pupils: Pupils are equal, round, and reactive to light. Cardiovascular: Rate and Rhythm: Normal rate and regular rhythm. Heart sounds: Normal heart sounds. Pulmonary: Effort: Pulmonary effort is normal. Breath sounds: Normal breath sounds. Abdominal: General: Abdomen is flat. There is no distension. Palpations: Abdomen is soft. Tenderness: There is no abdominal tenderness. Musculoskeletal: General: Normal range of motion. Cervical back: Normal range of motion. Skin: General: Skin is warm and dry. Capillary Refill: Capillary refill takes less than 2 seconds. Neurological: General: No focal deficit present. Mental Status: He is alert and oriented to person, place, and time. Psychiatric: Mood and Affect: Mood normal. Behavior: Behavior normal. ED Course & MDM ED Course as of 02/22/25124Feb 21, 20251935 I was advised by the front and charge nurse that the patient's glucose was 512. The order was placed for insulin and IV fluids. [MN] ED Course User Index [MN] Kvng Marshall MD Clinical Impressions as of 02/22/25124 Hyperglycemia Medical Decision Making 59-year-old male with a history of type 2 diabetes presents to the ED for hyperglycemia. On exam, he is alert, oriented and not in acute distress. His vitals were stable and he was satting at 99% on room air. Patient labs were significant for hyperglycemia. He was not acidotic and did not have an anion gap. Plan to start patient on IV fluids, insulin and reevaluate. On reevaluation, patient continues to be stable and not in acute distress. His repeat blood sugar after therapy was 112. He denies headache, dizziness. He is advised to take his prescriptions as prescribed. He will follow-up with his PCP for recent visits and return to the ER with new, worsening orconcerning symptoms. Procedures Emanuel Arellano MD 02/21/25 2152 Emanuel Arellano MD 02/22/25 0128 documented in this encounter Plan of Treatment Not on file documented as of this encounter Procedures Procedure Name Priority Date/Time Associated Diagnosis Comments POCT GLUCOSE BLOOD Routine 02/22/2025 1: 03 AM EDT POCT GLUCOSE BLOOD Routine 02/22/2025 12 :16 AM EDT URINALYSIS WITH REFLEX MICROSCOPIC STAT 02/21/2025 6:47 PM EDT URINALYSIS WITH REFLEX MICROSCOPIC STAT 02/21/2025 6:47 PM EDT BETA HYDROXYBUTYRATE STAT 02/21/2025 6:41 PM EDT CBC WITH AUTO DIFFERENTIAL STAT 02/21/2025 6:41 PM EDT CBC AND DIFFERENTIAL STAT 02/21/2025 6:41 PM EDT OSMOLALITY STAT 02/21/2025 6:41 PM EDT MAGNESIUM STAT 02/21/2025 6:41 PM EDT LIPASE STAT 02/21/2025 6:41 PM EDT VENOUS BLOOD GAS STAT 02/21/2025 6:41 PM EDT COMPREHENSIVE METABOLIC PANEL STAT 02/21/2025 6:41 PM EDT POCT GLUCOSE BLOOD Routine 02/21/2025 6: 11 PM EDT documented in this encounter Results * (ABNORMAL) POCT Glucose, blood (02/22/2025 1:03 AM EDT) Glucose POCT 122(H) 70 - 100 mg/dL 02/22/2025 1:05 AM EDT [facility] Blood Capillary blood specimen / Unknown 02/22/2025 1:03 AM EDT 02/22/2025 1:06 AM EDT Emanuel Arellano MD LAB POINT OF CARE TEST DOCKED DEVICE UNSOLICITED RESULTS Final Result Performing Organization Address [facility]/ZIP Co de Phone Number [facility] [address] [place] [address], [place] [phone] * (ABNORMAL) POCT Glucose, blood (02/22/2025 12:16 AM EDT) [facility] Signature Glucose POCT 309(H) 70 - 100 mg/dL 02/22/2025 12:17 AM EDT [facility] Blood Capillary blood specimen / Unknown 02/22/2025 12:16 AM EDT 02/22/2025 12:19 AM EDT Emanuel Arellano MD LAB POINT OF CARE TEST DOCKED DEVICE UNSOLICITED RESULTS Final Result [facility] [address] [place] [address], [place] [phone] * (ABNORMAL) Urinalysis with reflex microscopic (02/21/2025 6:47 PM EDT) [facility] Specific [place] Urine 1.022 1.003 - 1.030 LAB URINALYSIS - AUTOMATED METHOD 02/21/2025 7:23 PM EDT [facility] pH, Urine 6.0 5.0 - 8.0 pH LAB URINALYSIS - AUTOMATED METHOD 02/21/2025 7:23 PM EDT [facility] Leukocytes, Urine Negative Negative LAB URINALYSIS - AUTOMATED METHOD 02/21/2025 7:23 PM [facility] Nitrite, Urine Negative Negative LAB URINALYSIS - AUTOMATED METHOD 02/21/2025 7:23 PM EDT [facility] Protein, Urine Negative <=Trace mg/dL LAB URINALYSIS - AUTOMATED METHOD 02/21/2025 7:23 PM [facility] Glucose, Urine >=1000(A) Negative mg/dL LAB URINALYSIS - AUTOMATED METHOD 02/21/2025 7:23 PM [facility] Ketones, Urine Negative Negative mg/dL LAB URINALYSIS - AUTOMATED METHOD 02/21/2025 7:23 PM [facility] Urobilinogen , Urine 0.2 0.2 - 1.0 mg/dL LAB URINALYSIS - AUTOMATED METHOD 02/21/2025 7:23 PM [facility] Bilirubin, Urine Negative Negative LAB URINALYSIS - AUTOMATED METHOD 02/21/2025 7:23 PM [facility] Blood, Urine Negative Negative LAB URINALYSIS - AUTOMATED METHOD 02/21/2025 7:23 PM [facility] Urine Urine specimen obtained by clean catch procedure / Unknown Non-blood Collection / Unknown 02/21/2025 6:47 PM EDT 02/21/2025 7:10 PM EDT us Emanuel Arellano MD LAB URINE ORDERABLES Final Result [facility] [address] [place] [address], [place] [phone] * (ABNORMAL) CBC auto differential (02/21/2025 6:41 PM EDT) [facility] WBC 6.1 4.8 - 10.8 K/mcL LAB HEMETOLOGY METHOD 02/21/2025 7:14 PM EDT [facility] RBC 5.40 4.50 - 5.50 M/mcL LAB HEMETOLOGY METHOD 02/21/2025 7:14 PM EDT [facility] Hemoglobin 15.5 13.5 - 17.5 g/dL LAB HEMETOLOGY METHOD 02/21/2025 7:14 PM EDT [facility] Hematocrit 45.7 42.0 - 54.0 % LAB HEMETOLOGY METHOD [facility]25 [facility] MCV 84.9 79.0 - 98.0 FL LAB HEMETOLOGY METHOD 02/21/2025 7:[facility] MCH 28.8 27.0 - 32.0 pcg LAB HEMETOLOGY METHOD 02/21/2025 7:[facility] MCHC 33.9 32.0 - 37.0 g/dL LAB HEMETOLOGY METHOD 02/21/2025 7:[facility] RDW 14.1 11.0 - 15.0 % LAB HEMETOLOGY METHOD 02/21/2025 7:[facility] Platelets 140 130 - 400 K/mcL LAB HEMETOLOGY METHOD 02/21/2025 7:[facility] MPV 13.1(H) 7.0 - 11.0 FL LAB HEMETOLOGY METHOD 02/21/2025 7:[facility] NRBC 0.0 <1.0 % LAB HEMETOLOGY METHOD 02/21/2025 7:14 [facility] NRBC Absolute 0.00 <0.10 K/mcL LAB HEMETOLOGY METHOD 02/21/2025 7:14 PM [facility] Neutrophils Relative 57.5 % LAB HEMETOLOGY METHOD 02/21/2025 7:14 PM [facility] Lymphocytes Relative 32.8 % LAB HEMETOLOGY METHOD 02/21/2025 7:14 PM [facility] Monocytes Relative 7.5 % LAB HEMETOLOGY METHOD 02/21/2025 7:14 PM [facility] Eosinophils Relative 1.0 % LAB HEMETOLOGY METHOD 02/21/2025 7:14 PM [facility] Basophils Relative 0.5 % LAB HEMETOLOGY METHOD 02/21/2025 7:14 PM [facility] Immature Granulocytes Relative 0.7 % LAB HEMETOLOGY METHOD 02/21/2025 7:14 PM [facility] Neutrophils Absolute 3.53 1.50 - 7.00 K/mcL LAB HEMETOLOGY METHOD 02/21/2025 7:14 PM [facility] Lymphocytes Absolute 2.01 1.00 - 5.00 K/mcL LAB HEMETOLOGY METHOD 02/21/2025 7:14 PM [facility] Monocytes Absolute 0.46 0.20 - 1.00 K/mcL LAB HEMETOLOGY METHOD 02/21/2025 7:14 PM [facility] Eosinophils Absolute 0.06 0.00 - 0.50 K/mcL LAB HEMETOLOGY METHOD 02/21/2025 7:14 PM [facility] Basophils Absolute 0.03 0.00 - 0.20 K/mcL LAB HEMETOLOGY METHOD 02/21/2025 7:14 PM [facility] Immature Granulocytes Absolute 0.04(H) 0.00 - 0.03 K/mcL LAB HEMETOLOGY METHOD 02/21/2025 7:14 PM [facility] Blood Venous blood specimen / Unknown Venipuncture / Unknown 02/21/2025 6:41 PM EDT 02/21/2025 6:51 PM EDT Emanuel Arellano MD LAB BLOOD ORDERABLES Final Result Performing Organization Address [facility] Co de Phone Number [facility] [address] [place] [address], [place] [phone] * (ABNORMAL) Venous blood gas (02/21/2025 6:41 PM EDT) pH, Alfonso 7.32 7.32 - 7.42 pH 02/21/2025 6:53 PM EDT [facility] pCO2, Alfonso 53(H) 41 - 51 mmHg 02/21/2025 6:53 PM EDT [facility] pO2, Alfonso 25 25 - 40 mmHg 02/21/2025 6:53 PM EDT [facility] HCO3, Venous 23.3 22.0 - 26.0 mmol/L 02/21/2025 6:53 PM EDT [facility] O2 Sat, Alfonso 50.1 % 02/21/2025 6:53 PM EDT [facility] Base Excess, Alfonso 0.0 -2.0 - 2.0 mmol/L 02/21/2025 6:53 PM EDT [facility] Blood Venous blood specimen / Unknown Venipuncture / Unknown 02/21/2025 6:41 PM EDT 02/21/2025 6:49 PM EDT us Emanuel Arellano MD LAB BLOOD ORDERABLES Final Result Performing Organization Address [facility]/ZIP Co de Phone Number [facility] [address] [place] [address], [place] [phone] * Beta hydroxybutyrate (02/21/2025 6:41 PM EDT) Beta-Hydroxybu tyrate 0.9 0.2 - 2.8 mg/dL LAB CHEMISTRY METHOD 02/21/2025 7:18 PM EDT [facility] Blood Venous blood specimen / Unknown Venipuncture / Unknown 02/21/2025 6:41 PM EDT 02/21/2025 7:15 PM EDT us Emanuel Arellano MD LAB BLOOD ORDERABLES Final Result Performing Organization Address [facility]/ZIP Co de Phone Number [facility] [address] [place] [address], [place] [phone] * (ABNORMAL) Osmolality (02/21/2025 6:41 PM EDT) Pathologist [facility] Osmolality [place] 323(H) 280 - 300 mOsm/kg LAB CHEMISTRY METHOD 02/21/2025 7:28 PM EDT [facility] Blood Venous blood specimen / Unknown Venipuncture / Unknown 02/21/2025 6:41 PM EDT 02/21/2025 7:15 PM EDT us Emanuel Arellano MD LAB BLOOD ORDERABLES Final Result Performing Organization Address [facility]/ZIP Co de Phone Number [facility] [address] [place] [address], [place] [phone] * Magnesium (02/21/2025 6:41 PM EDT) Pathologist [facility] Magnesium 2.1 1.9 - 2.6 mg/dL LAB CHEMISTRY METHOD 02/21/2025 7:18 PM EDT [facility] Blood Venous blood specimen / Unknown Venipuncture / Unknown 02/21/2025 6:41 PM EDT 02/21/2025 7:15 PM EDT us Emanuel Arellano MD LAB BLOOD ORDERABLES Final Result Performing Organization Address City/[facility]/ZIP Co de Phone Number [facility] [address] [place] [address], [place] [phone] * (ABNORMAL) Lipase (02/21/2025 6:41 PM EDT) Lipase 103(H) 13 - 75 unit/L LAB CHEMISTRY METHOD 02/21/2025 7:18 PM EDT [facility] Blood Venous blood specimen / Unknown Venipuncture / Unknown 02/21/2025 6:41 PM EDT 02/21/2025 7:15 PM EDT Emanuel Arellano MD LAB BLOOD ORDERABLES Final Result Performing Organization Address [facility]/ZIP Co de Phone Number [facility] [address] [place] [address], [place] [phone] * (ABNORMAL) Comprehensive metabolic panel (02/21/2025 6:41 PM EDT) Sodium 131(L) 133 - 145 mmol/L LAB CHEMISTRY METHOD 02/21/2025 7:36 PM EDT [facility] Potassium 5.0 3.5 - 5.5 mmol/L LAB CHEMISTRY METHOD 02/21/2025 7:36 PM T [facility] Chloride 99 96 - 110 mmol/L LAB CHEMISTRY METHOD 02/21/2025 7:36 PM EDT [facility] CO2 29 21 - 32 mmol/L LAB CHEMISTRY METHOD 02/21/2025 7:36 PM EDT [facility] Anion Gap 3 3 - 11 LAB CHEMISTRY METHOD 02/21/2025 7:36 PM EDT [facility] Glucose 514(HH) 70 - 100 mg/dL LAB CHEMISTRY METHOD 02/21/2025 7:36 PM EDT [facility] BUN 47(H) 5 - 25 mg/dL LAB CHEMISTRY METHOD 02/21/2025 7:36 PM [facility] Creatinine 2.45(H) 0.70 - 1.30 mg/dL LAB CHEMISTRY METHOD 02/21/2025 7:36 PM [facility] eGFR 29(L) >=60 mL/min/1. 73m2 LAB CHEMISTRY METHOD 02/21/2025 7:36 PM [facility] Comment:Calculation based on the Chronic Kidney Disease Epidemiology Collaboration (CKD-EPI) equation refit without adjustment for race. BUN/Creatinine Ratio 19.2 LAB CHEMISTRY METHOD 02/21/2025 7:36 PM [facility] Calcium 8.9 8.5 - 10.5 mg/dL LAB CHEMISTRY METHOD 02/21/2025 7:36 PM [facility] AST (SGOT) 17 10 - 42 unit/L LAB CHEMISTRY METHOD 02/21/2025 7:36 PM [facility] ALT (SGPT) 49 10 - 60 unit/L LAB CHEMISTRY METHOD 02/21/2025 7:36 PM [facility] Alkaline Phosphatase 75 42 - 121 unit/L LAB CHEMISTRY METHOD 02/21/2025 7:36 PM [facility] Total Protein 7.4 6.0 - 8.0 g/dL LAB CHEMISTRY METHOD 02/21/2025 7:36 PM [facility] Albumin 3.8 3.2 - 5.0 g/dL LAB CHEMISTRY METHOD 02/21/2025 7:36 PM [facility] Total Bilirubin 0.6 0.0 - 1.4 mg/dL LAB CHEMISTRY METHOD 02/21/2025 7:36 PM [facility] Blood Venous blood specimen / Unknown Venipuncture / Unknown 02/21/2025 6:41 PM EDT 02/21/2025 7:15 PM EDT Emanuel Arellano MD LAB BLOOD ORDERABLES Final Result Performing Organization Address [facility]/ZIP Co de Phone Number [facility] [address] [place] [address], [place] [phone] * (ABNORMAL) POCT Glucose, blood (02/21/2025 6:11 PM EDT) [facility] Glucose POCT 512() 70 - 100 mg/dL 02/21/2025 6:12 PM EDT [facility] POCT Comment RN Notified 02/21/2025 6:12 PM EDT [facility] Blood Capillary blood specimen / Unknown 02/21/2025 6:11 PM EDT 02/21/2025 6:13 PM EDT us Generic Provider Poct LAB POINT OF CARE TEST DOCKED DEVICE UNSOLICITED RESULTS Final Result Performing Organization Address [facility] de Phone Number [facility] [address] [place] [address], [place] [phone] documented in this encounter Visit Diagnoses Diagnosis Hyperglycemia- Primary Other abnormal glucose documented in this encounter Administered Medications Inactive Administered Medications - up to 3 most recent administrations Medication Order MAR Action Action Date Dose Rate Site insulin regular (HumuLIN R) injection 10 Units 10 Units, intravenous, Once, On Fri02/21/25 at 1937, For 1 dose, ONLY use an IV INSULIN SYRINGE with graduations in UNITS to draw up and administer each dose. Given 02/22/2025 12:18 AM EDT 10 Units sodium chloride 0.9 % bolus 1,000 mL 1,000 mL, intravenous, at 1,000 mL/hr, Administer over 1 Hours, Once, On Fri02/21/25 at 1937, For 1 dose New Bag 02/22/2025 12:17 AM EDT 1,000 mL 1000 mL/hr sodium chloride 0.9 % bolus 1,000 mL 1,000 mL, intravenous, at 1,000 mL/hr, Administer over 1 Hours, Once, On Fri02/21/25 at 1937, For 1 dose New Bag 02/22/2025 12:16 AM EDT 1,000 mL 1000 mL/hr documented in this encounter Active and Recently Administered Medications Times are shown in EDT. Scheduled Medication Order 02/20/2025 02/21/2025 02/22/2025 insulin regular (HumuLIN R) injection 10 Units (COMPLETED) 10 Units, intravenous, Once, On Fri02/21/25 at 1937, For 1 dose, ONLY use an IV INSULIN SYRINGE with graduations in UNITS to draw up and administer each dose. 0018 (Given - Provid er: Cherelle Gilliam RN - Comment: Pt just roomed. IV just placed) sodium chloride 0.9 % bolus 1,000 mL (COMPLETED)(Linked Group 1) 1,000 mL, intravenous, at 1,000 mL/hr, Administer over 1 Hours, Once, On Fri02/21/25 at 1937, For 1 dose 0017 (New Bag - Prov ider: Cherelle Gilliam RN)0130 (Stopped - Provider: Cherelle Gilliam RN) sodium chloride 0.9 % bolus 1,000 mL (COMPLETED)(Linked Group 1) 1,000 mL, intravenous, at 1,000 mL/hr, Administer over 1 Hours, Once, On Fri02/21/25 at 1937, For 1 dose 0016 (New Bag - Prov ider: Cherelle Gilliam RN - Comment: PT just got to room and had IV placed.)0130 (Stopped - Provider: Cherelle Gilliam RN) Linked Groups Order Group 1: sodium chloride 0.9 % bolus 1,000 mL (COMPLETED)Jump to med 1,000 mL, intravenous, at 1,000 mL/hr, Administer over 1 Hours, Once, On Fri02/21/25 at 1937, For 1 dose Followed by sodium chloride 0.9 % bolus 1,000 mL (COMPLETED)Jump to med 1,000 mL, intravenous, at 1,000 mL/hr, Administer over 1 Hours, Once, On Fri02/21/25 at 1937, For 1 dose documented in this encounter Care Teams Research Consultant Relationship Specialty Start Date End Date Toya Marinelli MD [address] [place] [address] PCP - General Internal Medicine 10/28/24 documented as of this encounter
--- OUTSIDE RECORDS SUMMARY | 2025-02-23 15:00 | XMS_ITS | Encounter Summary ---
Author Organization [employer] Address [address] [facility] [address] 7t [place] [address] Care Team Providers Care Vice Provost Name Role Phone AvivaSabine bustillos ALEXANDRA Primary Care Provider [phone] Reason for Visit * Reason Comments Walk-In Dizzy, was in ER Fri high sugar Encounter Details Date Type Department Care Team (Late st Contact Info) Description 02/23/2025 3:00 PM EDT Office Visit [facility] [address] [place] [address] Type 2 diabetes mellitus with hyperglycemia, without long-term current use of insulin ([facility]) (Primary Dx); Dizziness Social History Tobacco Use Types Packs/Day Years [...] Sign Reading Time Taken Comments Blood Pressure 131/89 02/23/2025 2:34 PM EDT Pulse 70 02/23/2025 2:10 PM EDT Temperature 36.6 C (97.8 F) 02/23/2025 2:10 PM EDT Respiratory Rate 18 02/23/2025 2:10 PM EDT Oxygen Saturation 98% 02/23/2025 2:10 PM EDT Inhaled Oxygen Concentration - - Weight 103 kg (228 lb) 02/23/2025 2:10 PM EDT Height - - Body Mass Index 31.8 09/27/2024 4:19 PM EDT documented in this encounter Plan of Treatment Upcoming Encounters Date Type Department Care Team (Late st Contact Info) Description 04/08/2025 3:30 PM EDT Office Visit [facility] [address] [place] [address] Sabine Bui FNP [address] [place] [address] Scheduled Orders Name Type Priority Associated Diagnoses Orde r Schedule Basic Metabolic Panel Lab Routine Dizziness Expected: 02/23/2025 (Approximate), Expires: 02/23/2026 Urinalysis Complete Lab Routine Type 2 diabetes mellitus with hyperglycemia, without long-term current use of insulin ([facility]) Dizziness Expected: 02/23/2025, Expires: 02/23/2026 documented as of this encounter Procedures Procedure Name Priority Date/Time Associated Diagnosis Comments POCT GLUCOSE Routine 02/23/2025 2:12 PM EDT Type 2 diabetes mellitus with hyperglycemia, without long-term current use of insulin ([facility]) documented in this encounter Results * (ABNORMAL) POCT Glucose (02/23/2025 2:12 PM EDT) Glucose Blood, POC 311(A) 60 - 200 mg/dL QC Media Lot # [id number] Lot# Expiration Date Blood Capillary blood specimen / Unknown 02/23/2025 2:12 PM EDT Marlys Thomas SILK WEAVER POINT OF CARE TEST ENTER/EDIT O RDERABLES Final Result documented in this encounter Visit Diagnoses Diagnosis Type 2 diabetes mellitus with hyperglycemia, without long-term current use of insulin ([facility])- Primary Dizziness Dizziness and giddiness documented in this encounter Additional Health Concerns Assessment Noted Time PHQ-9 Depression Total Score: 0 12/03/19 23 10:09 AM EDT documented as of this encounter Care Teams Vice Provost Relationship Specialty Start Date End Date Sabine Bui FNP [address] [place] [address] PCP - General Family Medicine 02/24/22 documented as of this encounter
--- OUTSIDE RECORDS SUMMARY | 2025-02-23 16:03 | XMS_ITS | Encounter Summary ---
Author Organization [facility] Address [address] [place] [address] 7t [place] [address] Care Team Providers Care Clinical Psychologist Private Practice Name Role Phone Sabine Bui Primary Care Provider [phone] Encounter Details Date Type Department Care Team (Late st Contact Info) Description 10/16/2022 Orders Only [facility] [address] [place] [address] Safia Cuba LPN Social History Tobacco Use [...] Description 04/08/2025 3:30 PM EDT Office Visit [facility] [address] [place] [address] Sabine Bui FNP 505 [place] [address] documented as of this encounter Visit Diagnoses Not on filedocumented in this encounter Care Teams Clinical Psychologist Private Practice Relationship Specialty Start Date End Date Sabine Bui FNP [address] [place] [address] PCP - General Family Medicine 02/24/22 documented as of this encounter
--- OUTSIDE RECORDS SUMMARY | 2025-02-23 16:03 | XMS_ITS | Encounter Summary ---
Author Organization [employer] Address [address] [facility] 7t [place] [address] Care Team Providers Care Warehouse Coordinator Name Role Phone Kennedy Buile ALEXANDRA Primary Care Provider [phone] Encounter Details Date Type Department Care Team (Late st Contact Info) Description 08/25/2024 Orders Only [facility] [address] [place] [address] Toya Marinelli MD 505 [place] [address] Other acute back pain Social History Tobacco [...] Description 04/08/2025 3:30 PM EDT Office Visit [facility] 505 [place] [address] Sabine Bui FNP 505 [place] [address] documented as of this encounter Visit Diagnoses Diagnosis Other acute back pain documented in this encounter Additional Health Concerns Assessment Noted Time PHQ-9 Depression Total Score: 0 12/03/19 23 10:09 AM EDT documented as of this encounter Care Teams Warehouse Coordinator Relationship Specialty Start Date End Date Sabine Bui FNP [address] [place] [address] PCP - General Family Medicine 02/24/22 documented as of this encounter
--- OUTSIDE RECORDS SUMMARY | 2025-02-23 16:03 | XMS_ITS | Encounter Summary ---
Author Organization [facility] Address [address] [place] [address] Phone Care Team Providers Care Mechanic Name Role Phone Mynor Ventura MD Primary Care Provider [phone] Encounter Details Date Type Department Care Team (Late st Contact Info) Description 12/18/2021 Documentation Only [facility], [address] [place] [address] Yamile Pierson, RN Social History [...] on filedocumented in this encounter Care Teams Mechanic Relationship Specialty Start Date End Date Mynor Ventura MD [address] [place] [phone] PCP - General Emergency Medicine 10/31/22 documented as of this encounter
--- OUTSIDE RECORDS SUMMARY | 2025-02-23 16:03 | XMS_ITS | Encounter Summary ---
Author Organization [employer] Address [address] [place] [address] 7t [place] [address] Care Team Providers Care Poultry Hatchery Manager Name Role Phone Sabine Bui Primary Care Provider [phone] Reason for Visit * Reason Onset Date Comments Appointment Request 09/26/2022 Encounter Details Date Type Department Care Team (Late st Contact Info) Description 09/26/2022 Telephone [facility] [address] [place] [address] Sabine Bui FNP 505 [place] [address] Appointment Request Social History Tobacco Use Types [...] appt with provider. Please contact pt at [phone] documented in this encounter Plan of Treatment Upcoming Encounters Date Type Department Care Team (Late st Contact Info) Description 04/08/2025 3:30 PM EDT Office Visit [facility] [address] [place] [address] Sabine Bui FNP 505 [place] [address] documented as of this encounter Visit Diagnoses Not on filedocumented in this encounter Care Teams Poultry Hatchery Manager Relationship Specialty Start Date End Date Sabine Bui FNP [address] [place] [address] PCP - General Family Medicine 02/24/22 documented as of this encounter
--- OUTSIDE RECORDS SUMMARY | 2025-02-23 16:03 | XMS_ITS | Encounter Summary ---
Author Organization [employer] Address 75 [facility] 7t [place] [address] Care Team Providers Care Oil Field Pipeline Supervisor Name Role Phone Sabine Bui Primary Care Provider Reason for Visit * Reason Onset Date Comments ER Follow-up 08/21/2023 Encounter Details Date Type Department Care Team ([facility] st Contact Info) Description 08/21/2023 Telephone [facility] [address] [place], [place] [phone] Sabine Bui FNP 505 [place] [address] ER Follow-up Social History Tobacco Use Types [...] reviewed - thank you. Awaiting notes from [facility] for further review. Glad he is scheduled [...] pain. Unable to understand all of his Mexican and asked for permission to call patient back with chemical strength tester line, but patient declined because he is [...] to PCP for her review. Notes from [facility] not yet in chart. ARLETTE [...] message below. No answer. LM in both Kittitian and Mexican to call us back to let us know how he is doing and schedule a f/u visit with PCP. Notes being requested by fax from [facility] by ARLETTE Jacobson. Routing back to [facility] nurses to try again to schedule ED f/u. Patient calling to report ED visit on : Date: 08/20 Hospital: [facility] Seen for: Chest pain Patient advised will forward to team nurse for follow up Please contact pt at [phone] (Mexican) * Telephone Encounter - Toya Ring - 08/21/2023 10:55 AM EST Patient calling to report ED visit on : Date: 08/20 Hospital: [facility] Seen for: Chest pain Patient advised will forward to team nurse for follow up Please contact pt at [phone] (Mexican) documented in this encounter Plan of Treatment Upcoming Encounters Date Type Department Care Team (Late st Contact Info) Description 04/08/2025 3:30 PM EDT Office Visit [facility] [address] [place] [address] Sabine Bui FNP [address] [place] [address] documented as of this encounter Visit Diagnoses Not on filedocumented in this encounter Additional Health Concerns Assessment Noted Time PHQ-9 Depression Total Score: 0 12/03/19 23 10:09 AM EDT documented as of this encounter Care Teams Oil Field Pipeline Supervisor Relationship Specialty Start Date End Date Sabine Bui FNP [address] [place] [address] PCP - General Family Medicine 02/24/22 documented as of this encounter
--- OUTSIDE RECORDS SUMMARY | 2025-02-23 16:03 | XMS_ITS | Encounter Summary ---
Author Organization [employer] Address 75 [facility] 7t [place] [address] Care Team Providers Care Talent Director Name Role Phone Sabine Bui Primary Care Provider [phone] Reason for Visit * Reason Comments Med Refill Encounter Details Date Type Department Care Team ([facility] st Contact Info) Description 06/07/2024 Refill [facility] [address] [place] [address] Sabine Bui FNP [address] [place] [address] Social History Tobacco Use Types Packs/Day Years [...] 3:30 PM EDT Office Visit [facility] 505 [place] [address] Sabine Bui FNP 505 [place] [address] documented as of this encounter Visit Diagnoses Not on filedocumented in this encounter Additional Health Concerns Assessment Noted Time PHQ-9 Depression Total Score: 0 12/03/19 23 10:09 AM EDT documented as of this encounter Care Teams Talent Director Relationship Specialty Start Date End Date Sabine Bui FNP [address] [place] [address] PCP - General Family Medicine 02/24/22 documented as of this encounter
--- OUTSIDE RECORDS SUMMARY | 2025-02-23 16:03 | XMS_ITS | Encounter Summary ---
Author Organization [employer] Address 75 [facility] 7t [place] [address] Care Team Providers Care Roadmaster Name Role Phone Sabine Bui Primary Care Provider [phone] Reason for Visit * Reason Comments Med Refill Encounter Details Date Type Department Care Team ([facility] st Contact Info) Description 02/10/2025 Refill [facility] [address] [place], [place] [phone] Sabine Bui FNP [address] [place] [address] Type 2 diabetes mellitus with hyperglycemia, without long-term current use of insulin ([facility]) Social History Tobacco Use Types Packs/Day Years [...] Description 04/08/2025 3:30 PM EDT Office Visit [facility] [address] [place] [address] Sabine Bui FNP 505 [place] [address] documented as of this encounter Visit Diagnoses Diagnosis Type 2 diabetes mellitus with hyperglycemia, without long-term current use of insulin ([facility]) documented in this encounter Additional Health Concerns Assessment Noted Time PHQ-9 Depression Total Score: 0 12/03/19 23 10:09 AM EDT documented as of this encounter Care Teams Roadmaster Relationship Specialty Start Date End Date Sabine Bui FNP [address] [place] [address] PCP - General Family Medicine 02/24/22 documented as of this encounter
--- OUTSIDE RECORDS SUMMARY | 2025-02-23 16:03 | XMS_ITS | Encounter Summary ---
Author Organization [employer] Address [address] [place] [address] 7t [place] [address] Care Team Providers Care Convenience Recycle Center Tech Name Role Phone Sabine Bui Primary Care Provider [phone] Reason for Visit * Reason Comments Med Refill Encounter Details Date Type Department Care Team (Late Contact Info) Description 03/28/2023 Refill [facility] [address] [place] [address] [facility] [address] [place] [address] Social History Tobacco Use Types Packs/Day Years [...] Department Care Team (Late Contact Info) Description 04/08/2025 3:30 PM EDT Office Visit [facility] [address] [place], [place] [phone] Sabine Bui FNP 505 [place] [address] documented as of this encounter Visit Diagnoses Not on filedocumented in this encounter Additional Health Concerns Assessment Noted Time PHQ-9 Depression Total Score: 0 12/03/19 23 10:09 AM EDT documented as of this encounter Care Teams Convenience Recycle Center Tech Relationship Specialty Start Date End Date Sabine Bui FNP [address] [place] [address] PCP - General Family Medicine 02/24/22 documented as of this encounter
--- OUTSIDE RECORDS SUMMARY | 2025-02-23 16:03 | XMS_ITS | Encounter Summary ---
Author Organization [employer] Address 75 [facility] 7t [place] [address] Care Team Providers Care Bleacher [employer] Pulp Name Role Phone Sabine Bui Primary Care Provider Reason for Visit * Reason Onset Date Comments Med Refill 02/17/2025 Encounter Details Date Type Department Care Team ([facility] st Contact Info) Description 02/17/2025 Telephone [facility] [address] [place] [address] Sabine Bui FNP [address] [place], [place] [phone] Med Refill Social History Tobacco Use Types Packs/Day Years [...] encounter Miscellaneous Notes * Telephone Encounter - Safia Cuba LPN - 02/17/2025 1:18 PM EDT Medication not prescribed by PCP. * Telephone Encounter - Vitaliy Leong - 02/17/2025 1:12 PM EDT TC from pt requesting medication refill. Medications needing refill: Eliquis 2.5 MG tablet To be sent to: [facility] - [place], [place] - [address] [facility] documented in this encounter Plan of Treatment Upcoming Encounters Date Type Department Care Team ([facility] st Contact Info) Description 04/08/2025 3:30 PM EDT Office Visit [facility] 505 [place] [address] Sabine Bui FNP [address] [place] [address] documented as of this encounter Visit Diagnoses Not on filedocumented in this encounter Additional Health Concerns Assessment Noted Time PHQ-9 Depression Total Score: 0 12/03/19 23 10:09 AM EDT documented as of this encounter Care Teams Bleacher [employer] Relationship Specialty Start Date End Date Sabine Bui FNP [address] [place] [address] PCP - General Family Medicine 02/24/22 documented as of this encounter
--- OUTSIDE RECORDS SUMMARY | 2025-02-23 16:03 | XMS_ITS | Clinical Summary ---
Author Organization [facility], Address [address] [place] [address] [place] [address] Phone Care Team Providers Care Test Tube Maker Name Role Phone Mynor Ventura MD Primary Care Provider [phone] Allergies No known active allergies Medications apixaban [...] Colorectal Cancer Screening: Sigmoidoscopy 2013 Pneumococcal Vaccine: 50+ Years (2 of 2 - PCV) 02/28/2016 02/27/2015 Diabetes: Ophthalmology Exam 09/20/2019 Diabetes: Pedal Pulse Checked 09/20/2019 Diabetes: Sensory Foot Exam 09/20/2019 Diabetes: Visual Foot Exam 09/20/2019 Diabetes: Hemoglobin A1C 05/15/2023 023, 02/11/2019 Influenza Vaccine (#1) 2025 06/29/2013 Pneumococcal Vaccine: Peds ( 0 to 5 Years) and At-Risk Patients (6 to 49 Years) Discontinued 02/27/2015 Hepatitis B Vaccine Aged Out 12/11/2021, 02/21/2021 No longer eligible based on patient's age to complete this topic Procedures Procedure Name Priority Date/Time Associated Diagnosis Comments HEMOGLOBIN A1C Routine 02/11/2019 7:21 AM EDT from Last 3 Months or Most Recently Relevant to Health Maintenance Results * Hemoglobin A1c (02/11/2019 7:21 AM EDT) Hemoglobin A1C 5.9 (4-6) % [place] [address] Comment: HEMOGLOBIN A1C(%) GLUCOSE CONTROL INDEX <6% EXCELLENT 6-7% VERY GOOD 7-8% GOOD 8-10% FAIR >10% POOR Hemoglobin (Hb) A1c testing is performed by [employer]-quant immunoassay. Any cause of shortened erythrocyte survival will reduce exposure of erythrocytes to glucose with a consequent decrease in Hb A1c (%). Testing performed or reported by ~[facility], ~a Service of [facility], ~[address] [place] [address]~ 02/11/2019 7:21 AM EDT us Regis Cordero MD LAB BLOOD ORDERABLES Final Resul t [place] [address] from Last 3 Months or Most Recently Relevant to Health Maintenance Insurance * Guarantor: Davis Hernandez Account Type Relation to Patient Date of Phone Billing Address Personal/Family Self 1965 [address] [place] [address] Medicare Medicaid [place] * Guarantor: Davis Hernandez Account Type Relation to Patient Date of Phone Billing Address Personal/Family Self 1965 [address] [place] [address] [facility] [employer] ([id number]) [place] [id number] * Guarantor: Davis Hernandez Account Type Relation to Patient Date of Phone Billing Address Personal/Family Self 1965 [address] [place] [address] Care Teams Test Tube Maker Relationship Specialty Start Date End Date Mynor Ventura MD [address] [place] [phone] PCP - General Emergency Medicine 10/31/22
--- OUTSIDE RECORDS SUMMARY | 2025-02-23 16:03 | XMS_ITS | Encounter Summary ---
Author Organization [employer] Address 75 [facility] 7t [place] [address] Care Team Providers Care Shells Inspector Name Role Phone Sabine Bui Primary Care Provider [phone] Reason for Visit * Reason Comments Med Refill Encounter Details Date Type Department Care Team ([facility] st Contact Info) Description 12/30/2024 Refill [facility] [address] [place], [place] [phone] Sabine Bui FNP [address] [place] [address] Type 2 diabetes mellitus with hyperglycemia, without long-term current use of insulin ([facility]) Social History Tobacco Use Types Packs/Day [...] Description 04/08/2025 3:30 PM EDT Office Visit [facility] [address] [place] [address] Sabine Bui FNP [address] [place] [address] documented as of this encounter Visit Diagnoses Diagnosis Type 2 diabetes mellitus with hyperglycemia, without long-term current use of insulin ([facility]) documented in this encounter Additional Health Concerns Assessment Noted Time PHQ-9 Depression Total Score: 0 12/03/19 23 10:09 AM EDT documented as of this encounter Care Teams Shells Inspector Relationship Specialty Start Date End Date Sabine Bui FNP [address] [place] [address] PCP - General Family Medicine 02/24/22 documented as of this encounter
--- OUTSIDE RECORDS SUMMARY | 2025-02-23 16:03 | XMS_ITS | Encounter Summary ---
Author Organization [employer] Address 75 [facility] 7t [place] [address] Care Team Providers Care Land Appraiser Name Role Phone Sabine Bui Primary Care Provider [phone] Reason for Visit * Reason Comments Med Change Request Encounter Details Date Type Department Care Team ([facility] Contact Info) Description 10/16/2022 Refill [facility] 230 [place], [place] [phone] Mynor Ventura MD [address] [place] [address] Social History Tobacco Use Types Packs/Day Years [...] Description 04/08/2025 3:30 PM EDT Office Visit [facility] [address] [place], [place] [phone] Sabine Bui FNP [address] [place] [address] documented as of this encounter Visit Diagnoses Not on filedocumented in this encounter Care Teams Land Appraiser Relationship Specialty Start Date End Date Sabine Bui FNP [address] [place] [address] PCP - General Family Medicine 02/24/22 documented as of this encounter
--- OUTSIDE RECORDS SUMMARY | 2025-02-23 16:03 | XMS_ITS | Encounter Summary ---
Author Organization [employer] Address [address] [place] [address] 7[address] [place] [address] Care Team Providers Care Furnace Mechanic Helper Name Role Phone Sabine Bui Primary Care Provider [phone] Reason for Visit * Reason Onset Date Comments ER Follow-up 02/12/2023 Encounter Details Date Type Department Care Team (Late st Contact Info) Description 02/12/2023 Telephone [facility] MEDICINE [address] [place] [address] Sabine Bui FNP [address] [place] [address] ER Follow-up Social History Tobacco Use Types [...] Sent to team to attempt to obtain [facility] notes for provider review. Protocol Used: Recent [...] to report ED visit on 02/12/23 at [facility]. Seen for leg pain and swelling (left). Patient advised will forward to team nurse for follow up. Symptom: Leg Swelling - Not From Injury Outcome: Schedule an urgent appointment (within 1 hour) or talk to a nurse or provider soon Reason: Severe leg pain now The caller accepted this outcome Patient speaks prydeinig. documented in this encounter Plan of Treatment Upcoming Encounters Date Type Department Care Team (Late st Contact Info) Description 04/08/2025 3:30 PM EDT Office Visit [facility] MED & PEDS [address] [place] [address] Sabine Bui FNP [address] [place] [address] documented as of this encounter Visit Diagnoses Not on filedocumented in this encounter Additional Health Concerns Assessment Noted Time PHQ-9 Depression Total Score: 0 06/05/20 23 10:09 AM EDT documented as of this encounter Care Teams Furnace Mechanic Helper Relationship Specialty Start Date End Date Sabine Bui FNP [address] [place] [address] PCP - General Family Medicine 02/24/22 documented as of this encounter
--- OUTSIDE RECORDS SUMMARY | 2025-02-23 16:03 | XMS_ITS | Encounter Summary ---
Author Organization [employer] Address [address] [facility] 7[address] [place] [address] Care Team Providers Care Transmission Technician Name Role Phone Sabine Bui Primary Care Provider [phone] Reason for Visit * Reason Comments Med Refill Encounter Details Date Type Department Care Team ([facility] st Contact Info) Description 10/27/2024 Refill [facility] PEDS [address] [place], [place] [phone] Sabine Bui FNP [address] [place] [address] Gout of foot, unspecified cause, unspecified chronicity, unspecified laterality Social History Tobacco Use Types Packs/Day Years [...] Description 04/08/2025 3:30 PM EDT Office Visit [facility] PEDS [address] [place] [address] Sabine Bui FNP [address] [place] [address] documented as of this encounter Visit Diagnoses Diagnosis Gout of foot, unspecified cause, unspecified chronicity, unspecified laterality documented in this encounter Additional Health Concerns Assessment Noted Time PHQ-9 Depression Total Score: 0 12/03/19 23 10:09 AM EDT documented as of this encounter Care Teams Transmission Technician Relationship Specialty Start Date End Date Sabine Bui FNP [address] [place] [address] PCP - General Family Medicine 02/24/22 documented as of this encounter
--- OUTSIDE RECORDS SUMMARY | 2025-02-23 16:03 | XMS_ITS | Clinical Summary ---
Author Organization [employer] Address [address] [facility] 7t [place] [address] Care Team Providers Care Block Out Machine Operator Name Role Phone [employer]ivaapollo Sabine ALEXANDRA Primary Care Provider [phone] Allergies No known active allergies Medications tiZANidine (Zanaflex) 2 MG tablet Take 1-2 tablets by mouth nightly as needed for muscle spasms 30 tablet 11/06/19 23 Active Alcohol Swabs pads Use to clean skin as needed 100 each 11 11/06/19 23 Active Blood Glucose Monitoring Suppl (FreeStyle Lite) w/Device kit 1 kit in the morning. 1 kit 08/23/19 24 Active Blood Pressure Monitor kit Check blood pressure once daily and when symptomatic. Please bring list of home blood pressure readings to appointments. 1 kit 09/26/19 24 Active FREESTYLE LITE test strip 1 each by Other route 3 times daily. 100 each 11 12/10/19 24 Active albuterol 108 (90 Base) MCG/ACT inhalerIndications :Shortness of breath Inhale 2 puffs every 6 (six) hours if needed for wheezing or shortness of breath. 18 g 3 12/22/19 24 Active Eliquis 2.5 MG tablet Take 2.5 mg by mouth 2 times daily. 10/09/19 24 Active atorvastatin (Lipitor) 20 MG tabletIndications: Other hyperlipidemia TAKE 1 TABLET BY MOUTH AT BEDTIME FOR CHOLESTEROL 90 tablet 1 02/23/20 24 Active amLODIPine (Norvasc) 5 MG tablet TAKE 1 TABLET BY MOUTH EVERY DAY IN THE MORNING 90 tablet 1 02/26/20 24 Active acetaminophen (Tylenol Extra Strength) 500 MG tabletIndications: Gout of foot, unspecified cause, unspecified chronicity, unspecified laterality Take 1-2 pills by oral route every 8 hours as needed for pain 100 tablet 1 04/26/20 24 Active tiZANidine (Zanaflex) 2 MG tabletIndications: Other acute back pain Take 1 tablet (2 mg) by mouth every 8 (eight) hours if needed for muscle spasms for up to 10 days. 30 tablet 08/25/19 25 Active allopurinol (Zyloprim) 100 MG tabletIndications: Gout of foot, unspecified cause, unspecified chronicity, unspecified laterality Take 1 tablet (100 mg) by mouth daily to help reduce gout flares 90 tablet 1 08/26/19 25 Active lisinopril-hydroCH LOROthiazide 20-25 MG tabletIndications: Essential hypertension TAKE 1 TABLET BY MOUTH EVERY DAY IN THE MORNING 90 tablet 3 09/17/19 25 Active insulin glargine (Lantus SoloStar) 100 UNIT/ML penIndications:Typ e 2 diabetes mellitus with hyperglycemia, without long-term current use of insulin (CMS/HCC) INJECT 14 UNITS UNDER THE SKIN NIGHTLY BEFORE BED. CHECK FASTING BLOOD SUGAR READING IN THE MORNING. 3 mL 2 09/22/19 25 Active gabapentin (Neurontin) 100 MG capsuleIndications :Polyneuropathy due to type 2 diabetes mellitus (CMS/HCC) Take 1 capsule (100 mg) by mouth at bedtime. 90 capsule 1 09/28/19 25 Active triamcinolone (Kenalog) 0.1 % cream Apply topically if needed in the morning and at bedtime for irritation or rash. Mix with ammonium lactate cream on equal parts and apply to affected area bid 80 g 1 11/10/19 25 Active ammonium lactate (Amlactin) 12 % cream Apply topically if needed for dry skin. Mix with triamcinolone cream on equal partes and apply to affected area bid 285 g 11/10/19 25 026 Active metFORMIN XR (Glucophage-XR) 500 MG 24 hr tablet TAKE 1 TABLET BY MOUTH WITH EVENING MEAL. DO NOT CRUSH, CHEW, OR SPLIT. 90 tablet 1 12/14/19 25 Active Tirzepatide (Mounjaro) 5 MG/0.5ML solution auto-injectorIndic ations:Type 2 diabetes mellitus with hyperglycemia, without long-term current use of insulin ([facility]) Inject 5 mg under the skin 1 (one) time per week. 2 mL 3 12/31/19 Active omeprazole (PriLOSEC) [address] capsule TAKE 1 CAPSULE BY MOUTH EVERY DAY BEFORE BREAKFAST. DONT CRUSH OR CHEW 90 capsule 1 01/15/20 Active Active Problems Problem Noted Date Diagnosed Date Irritant contact dermatitis 11/09/2024 Assessment & Plan (11/09/2024 3:18 PM EDT): Advised to keep the area clean and dry, use mild body wash/unscented Dove Avoid contact with other scented substances or chemicals Use triamcinolone and ammonium lactate cream on equal parts on affected area twice daily Hyperglycemia 09/21/2024 Assessment & Plan (09/21/2024 11:05 AM EDT): Due to uncontrolled type 2 diabetes, with medication non-compliance x2 months. UA without ketone bodies, no indication of DKA. No recent illness or infections. Restarted on insulin today 09/21/24 Elevated PSA 04/26/2024 Overview (09/28/2024): Lab Results Component Value Date PSA 13.69 (H) 12/23/2023 - Referred to Urology December 2023 - Encouraged to follow-up with Urology 04/26/24 - Asked nursing staff to help set him up for appointment and encouraged importance of following-up today 09/21/24. - 09/27/24 - PCP and pt called [facility] Urology to schedule initial consult. Called outside of business hours. Pt to re-attempt this week if has not heard back. Call our office with any difficulties. Assessment & Plan (09/21/2024 11:03 AM EDT): Lab Results Component Value Date PSA 13.69 (H) 12/23/2023 - Referred to Urology December 2023 - Encouraged to follow-up with Urology 04/26/24 - Asked nursing staff to help set him up for appointment and encouraged importance of following-up today 09/21/24. Assessment & Plan (04/26/2024 6:23 PM EDT): - Missed initial appt, encouraged to call and reschedule History of chest pain 12/24/2023 Overview (12/24/2023): 10/03/23 - Stress Test completed at [facility] Cardiology [facility]. Impression: Equivocal exercise stress test in the setting of EKG changes. No chest pain and no diagnostic ischemic EKG changes. No arrhythmias. Recommend further testing with nuclear imaging. Pt scheduled for Cards consult December 2023 ED precautions Other proteinuria 02/20/2023 Routine health maintenance 11/05/2022 Assessment & Plan (12/24/2023 3:01 PM EDT): Routine Health Maintenance Optometry: referred to [facility] 12/22/23 Dental: encouraged to establish [...] to type 2 diabetes mellitus 0 11/01/2022 Assessment & Plan (09/28/2024 7:32 PM EDT): - Based on clinical presentation suspect diabetic neuropathy because of lower extremity symptoms -Shared decision making to proceed with gabapentin given additional diagnosis of RLS. Will start with 100 mg nightly, increase dose as needed. Reviewed med safety and side effects. - Check Vit b12 level Low back pain radiating to both legs 10/02/2022 Assessment & Plan (11/05/2022 6:28 PM EDT): Acute on chronic low back pain Hx of lumbar spinal surgery in [place], scar well healed MRI of lumbar spine ordered 10/02/22, pending Referral to Spine and Sports for further eval ED precautions reviewed Pulmonary embolism 12/11/2021 Overview (12/22/2023): Date of PE: August [address] [facility] Heme/Onc Last consult note: 10/09/23: Plan to cont on Eliquis 2.5mg BID Hypercoagulable workup negative Assessment & Plan (11/05/2022 6:17 PM EDT): Following with [facility] Heme/Onc, last consult appt Mar 2022. Decreased Eliquis to 2.5mg BID. Plan for follow up appt approx September 2022 to discuss discontinuation of anticoagulation. Encouraged pt to schedule follow up visit with [facility] Heme/Onc as planned. Stage 3b chronic kidney disease 01/28/2021 Assessment & Plan (12/22/2023 8:40 AM EDT): Following with [facility] [place] Pt aware of need to avoid NSAIDs and maintain good hydration status Assessment & Plan (09/28/2023 10:28 AM EDT): Following with [facility] Pt aware of need to avoid NSAIDs and maintain good hydration status Assessment & Plan (04/08/2023 9:23 AM EDT): Following with [facility] (last consult appt in January 2023) Check CMP & microalbumin prior to appt Pt aware of need to avoid NSAIDs and maintain good hydration status Assessment & Plan (11/05/2022 6:18 PM EDT): Referred to Nephrology on 10/02/22 during [facility] visit. Reports upcoming appt February 27, 2023 to establish care Check CMP & microalbumin prior to appt Pt aware of need to avoid NSAIDs and maintain good hydration status Gout 01/28/2021 Assessment & Plan (09/28/2024 7:21 PM EDT): -Pt reports > 2 flares/year, which indicates benefit of ULT -Given dosing adjustments with hx CKD, pt currently prescribed allopurinol 50mg daily -Considerations: hydrochlorothiazide which may increase frequency of flares -Acute flares tx successfully with prednisone -Rheum consult Jan 2024 ([facility] tx center). Rec titrating allopurinol upwards in 50mg increments every 3-4 weeks with goal serum uric acid less than 6.5 - Increase to allopurinol 100mg daily Jul 2024 - Due to re-check uric acid level Assessment & Plan (04/26/2024 6:31 PM EDT): [...] flares Reviewed dietary modifications with pt Plan: discuss [...] Time Provider Department Center 09/11/2023 1:00 PM [facility] DAVID NURSE [facility] 09/26/2023 11:[address] [facility] Assessment & Plan (03/21/2023 5:42 AM EDT): BP goal < 140/90 mmHg Home BP log averages 130/80-90mmHg Continue with lisinopril-hydrochlorothiazide 20-12.5mg daily Encouraged to continue with lifestyle interventions such as daily physical activity (goal 150mins weekly) and low salt diet ED precautions reviewed Assessment & Plan (11/05/2022 6:19 PM EDT): BP goal < 140/90 mmHg Home BP log averages 130/80-90mmHg Continue with lisinopril-hydrochlorothiazide 20-12.5mg daily Encouraged to continue with lifestyle interventions such as daily physical activity (goal 150mins weekly) and low salt diet ED precautions reviewed Type 2 diabetes mellitus 12/03/2017 Overview (09/28/2024): Lab Results Component Value Date HGBA1C 9.4 (A) 08/23/2024 HGBA1C 10.1 (A) 04/26/2024 HGBA1C 6.8 (H) 12/11/2021 HGBA1C 8.4 (H) 01/24/2021 A1c goal </= 7.0%. above goal Continue Metformin 500mg BID (renal dosing) Continues lantus 14 units nightly Goal FBG 90-130 START tirzepatide 2.5mg subcutaneous weekly Highly encouraged use of lifestyle interventions, pt reports currently ordering most food while driving, little food prep. Assessment & Plan (09/28/2024 7:36 PM EDT): - GLP1 - switching from dulaglutide to tirzepatide. No dose adjustment needed for renal fx. Reviewed med safety and SE Assessment & Plan (09/21/2024 11:04 AM EDT): Uncontrolled. 09/21/24. Reports been out of medications x2 months. -restarted insulin glargine (Lantus SoloStar) 100 UNIT/ML pen 09/21/24 Assessment & Plan (09/02/2023 12:51 AM EST): [...] Component Value Date HGBA1C 11.0 (A) 10/02/2022 A1c goal </= 7.0%. 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 A1c currently >9%, therefore would not reconsider SGLT2 inhibitor until blood sugar better controlled. Start lantus 10 units nightly. Reviewed med use and safety. Goal FBG 90-130 Plan to hopefully DC lantus and start SGLT2 after improved glycemic control Highly encouraged use of lifestyle interventions, pt reports currently ordering most food while driving, little food prep. ED precautions reviewed Hyperlipidemia 03/16/2013 Overview (04/26/2024): [...] Encounters Date Type Department Care Team Description 02/23/2025 3:00 PM EDT Office Visit [facility] [address] [address] Type 2 diabetes mellitus with hyperglycemia, without long-term current use of insulin ([facility]) (Primary Dx); Dizziness 02/23/2025 Travel 02/17/2025 Telephone [facility] [address] [place] [phone] Sabine Bui FNP Med Refill 02/10/2025 Refill [facility] [address] [place] [address] Sabine Bui FNP Type 2 diabetes mellitus with hyperglycemia, without long-term current use of insulin ([facility]) 01/14/2025 Refill [facility] [address] [place] [address] Sabine Bui FNP 12/30/2024 Orders Only [facility] [address] [place] [address] Delaney Rodrigez MD Type 2 diabetes mellitus with hyperglycemia, without long-term current use of insulin ([facility]) (Primary Dx) 12/30/2024 Refill [facility] [address] [place] [address] Sabine Bui FNP Type 2 diabetes mellitus with hyperglycemia, without long-term current use of insulin ([facility]) 12/11/2024 Refill [facility] [address] [place] [address] Sabine Bui FNP 11/29/2024 Telephone [facility] [address] [place] [phone] Sabine Bui FNP No Show from Last 3 Months Immunizations Immunization Administration Dates Next Due Hep B, adult [...] (228 lb) 02/23/2025 2:10 PM EDT Height 180.3 cm (5' 11 ) 09/27/2024 4:19 PM EDT Body Mass Index 31.8 09/27/2024 4:19 PM EDT Plan of Treatment Upcoming Encounters Date Type Department Care Team (Late st Contact Info) Description 04/08/2025 3:30 PM EDT Office Visit [facility] MED & PEDS [address] [place] [address] Sabine Bui, MOLD YARD WORKER [address] [place], [place] [phone] Health Maintenance Due Date Last Done Comments CT Colonography 1964 Colonoscopy 1964 Colorectal Cancer Screening 1964 FIT DNA/Cologuard 1964 FIT 1964 FOBT 1964 Sigmoidoscopy 1964 Disability Screening 1964 Eye Exam 1974 Alcohol/Substance Use Screening 1976 Zoster Vaccines (1 of 2) 2014 Pneumococcal Vaccine: 50+ Years (2 of 2 - PCV) 02/28/2016 02/27/2015 Depression Screening 12/03/2023 12/02/2022, 12/03/19 23 COVID-19 Vaccine ( season) 2024 03/27/2021, 03/06/2021 RSV Patients and Patients Aged 60 years or older (1 - Risk 60-74 years 1-dose series) 2024 Diabetes: Hemoglobin A1C 11/20/20242 025, 04/26/2024, 12/22/2023, Additional history exists SDOH Screening 12/21/2024 12/22/2023 Diabetes: Urine Protein Screening 12/22/2024 12/23/2023, 02/20/2023, 11/05/2022, Additional history exists Lipid Panel 12/22/2024 12/23/2023, 01/24/2021 Influenza Vaccine (#1) 2025 06/29/2013 Diabetes: Foot Exam 09/21/2025 09/21/2024, 3 Tobacco Screening 09/27/2025 09/27/2024 DTaP/Tdap/Td Vaccines (3 - Td or Tdap) [...] age to complete this topic Meningococcal B Vaccine Aged Out No l onger eligible based on patient's age to complete [...] hyperglycemia, without long-term current use of insulin ([facility]) POCT GLYCATED HEMOGLOBIN, TOTAL Routine 08/23/2024 6:36 PM EST Type 2 diabetes mellitus with hyperglycemia, without long-term current use of insulin (CMS/[facility]) ALBUMIN, RANDOM URINE W/CREATININE Routine 12/23/2023 10:00 AM EDT Type 2 diabetes mellitus with hyperglycemia, without long-term current use of insulin ([facility]) HEPATITIS C VIRAL RNA, QUANTITATIVE, REAL-TIME PCR Routine 12/23/2023 9:55 AM EDT Encounter for routine history and physical examination of adult HIV 1/2 ANTIGEN/ANTIBODY, FOURTH GENERATION W/RFL Routine 12/23/2023 9:55 AM EDT Encounter for routine history and physical examination of adult LIPID PANEL, STANDARD Routine 12/23/2023 9:55 AM EDT Type 2 diabetes mellitus with hyperglycemia, without long-term current use of insulin ([facility]) from Last 3 Months or Most Recently Relevant to Health Maintenance Results * (ABNORMAL) POCT Glucose (02/23/2025 2:12 PM EDT) Glucose Blood, POC 311(A) 60 - 200 mg/dL QC Media Lot # [id number] Lot# Expiration Date Blood Capillary blood specimen / Unknown 02/23/2025 2:12 PM EDT Marlys Thomas NP POINT OF CARE TEST ENTER/EDIT O RDERABLES Final Result * (ABNORMAL) POCT HGB A1C (08/23/2024 6:36 PM EST) Hemoglobin A1C 9.4(A) 4.0 - 6.0 % QC Media Lot # [id number] Lot# Expiration Date Blood 08/23/2024 6:36 PM EST Toya Marinelli MD POINT OF CARE TEST ENTER/ED IT ORDERABLES Final Result * (ABNORMAL) Albumin, Random Urine W/Creatinine (12/23/2023 10:00 AM EDT) Creatinine, Urine 119.19 mg/dL [facility] Microalbumin Urine 140.0 mg/L [facility] Microalbum Creatinine Ratio Ur 117.4(H) <30 ug/mg cr [facility] Comment:Albumin/Creatinine R at Reference Ranges: Normal: < 30 ug/mg creatinine Microalbuminuria: 30 - 300 ug/mg creatinineClinical Albuminuria: > 300 ug/mg creatinine Urine (Urine, Random) 12/23/2023 10:00 AM EDT 12/23/2023 11:21 AM EDT Sabine Bui [facility] URINE ORDERABLES Final Res ult Performing Organization Address [facility]/ZIP Co de Phone Number [facility] [address] [place] [phone] * Hepatitis C Viral RNA, Quantitative, Real-Time PCR (12/23/2023 9:55 AM EDT) [facility] Hepatitis C Viral Load <15 NOT DETECTED NOT DETECTED IU/mL [facility] HCV Log PCR <1.18 NOT DETECTED NOT DETECTED Log IU/mL [facility] Comment:For additional infor mation, please refer tohttp://education.[email or web address]/faq/[email or web address](This link is being provided for informational/educational purposes only.)THIS TEST WAS PERFORMED AT:[facility] [place] [id number] NAZARIO MD Blood 12/23/2023 9:55 AM EDT 12/23/2023 11:20 AM EDT Sabine Bui [facility] BLOOD ORDERABLES Final Res ult Performing Organization Address [facility] Co de Phone Number [facility] [address] [place] [phone] * HIV-1/2 Antigen and Antibodies, Fourth Generation, with Reflexes (12/23/2023 9:55 AM EDT) Pathologist [facility] HIV AB/AG Nonreactive Nonreactive [facility] Comment:HIV-1 p24 Ag and/or HIV-1/HIV-2 Ab not detected.A test result that is nonreactive does not exclude thepossibility of exposure to or infection with HIV-1 and/orHIV-2. Nonreactive results in this assay for individualswith prior exposure to HIV-1 and/or HIV-2 may be due toantigen and antibody levels that are below the limit ofdetection of this assay.The [employer] HIV Ag/Ab Combo assay result andsupplemental assay results should be interpreted inconjunction with the patient's clinical presentation,history and other laboratory results. If the results areinconsistent with clinical evidence, additional testing issuggested to confirm the result. Blood Venous blood specimen / Unknown 12/23/2023 9:55 AM EDT 12/23/2023 11:20 AM EDT Sabine Bui [facility] BLOOD ORDERABLES Final Res ult Performing Organization Address [facility] de Phone Number [facility] [address] [place] [phone] * (ABNORMAL) Lipid Panel, Standard (12/23/2023 9:55 AM EDT) Triglycerides 215(H) <150 mg/dL [facility] Comment:Desirable Triglyceri de: less than 150 mg/dLBorderline High Triglyceride 150-199 mg/dLHigh Triglyceride: 200-499 mg/dLVery High Triglyceride: greater than or equal to 5OO mg/dL Cholesterol 167 <200 mg/dL [facility] Comment:Desirable Cholestero l: less than 200 mg/dLBorderline High Cholesterol: 200-239 mg/dLHigh Cholesterol: greater than 239 mg/dL LDL Cholesterol Calculated 91 <100 mg/dL [facility] Comment:Desirable LDL: less than 100 mg/dLNear Optimal/Above Optimal LDL: 110- 129 mg/dLBorderline High LDL: 130-159 mg/dLHigh LDL: 160-189 mg/dLVery High LDL: greater than or equal to 190 mg/dL HDL Cholesterol 33(L) >40 mg/dL [facility] Comment:Desirable HDL: great er than 40 mg/dL Note: This HDL assay may give artificially low results in patients with liver disease. Blood Venous blood specimen / Unknown 12/23/2023 9:55 AM EDT 12/23/2023 11:20 AM EDT Sabine Hao [facility] BLOOD ORDERABLES Final Res ult Performing Organization Address [facility] Co de Phone Number [facility] [address] [place] [phone] from Last 3 Months or Most Recently Relevant to Health Maintenance Insurance [facility] ONE CARE < [address] [id number] Care Teams Block Out Machine Operator Relationship Specialty Start Date End Date Sabine Bui FNP [address] [place] [phone] PCP - General Family Medicine 02/24/22
--- OUTSIDE RECORDS SUMMARY | 2025-02-23 16:03 | XMS_ITS | Encounter Summary ---
Author Organization [employer] Address [address] [facility] [address] [place] [address] Care Team Providers Care Golf Course Superintendent Name Role Phone Sabine Bui Primary Care Provider [phone] Reason for Visit * Reason Onset Date Comments Med Refill 09/21/2024 Encounter Details Date Type Department Care Team (Late st Contact Info) Description 09/21/2024 Telephone [facility] MED[facility] [address] [place] [address] Sabine Bui FNP [address] [place], [place] [phone] Med Refill Social History Tobacco Use Types [...] encounter Miscellaneous Notes * Telephone Encounter - Alverto Bryant - 09/21/2024 9:02 AM EDT TC from pt requesting medication refill. Medications needing refill : insulin glargine (Lantus SoloStar) 100 UNIT/ML pen To be sent to: [facility]/pharmacy #[id number] documented in this encounter Plan of Treatment Upcoming Encounters Date Type Department Care Team ([facility] st Contact Info) Description 04/08/2025 3:30 PM EDT Office Visit [facility] MED & PEDS [address] [place] [address] Sabine Bui FNP [address] [place] [address] documented as of this encounter Visit Diagnoses Not on filedocumented in this encounter Additional Health Concerns Assessment Noted Time PHQ-9 Depression Total Score: 0 12/03/19 23 10:09 AM EDT documented as of this encounter Care Teams Golf Course Superintendent Relationship Specialty Start Date End Date Sabine Bui FNP [address] [place] [address] PCP - General Family Medicine 02/24/22 documented as of this encounter
--- OUTSIDE RECORDS SUMMARY | 2025-02-23 16:03 | XMS_ITS | Encounter Summary ---
Author Organization [employer] Address [address] [facility] 7[address] [place] [address] Care Team Providers Care Child Care Director Name Role Phone Sabine Bui Primary Care Provider [phone] Reason for Referral * Consultation (Routine) - Authorized Specialty Diagnoses / Procedures Referred By Contac t Referred To Contact Pharmacy Diagnoses Type 2 diabetes mellitus with hyperglycemia, without long-term current use of insulin (CMS/HCC) Nohemy Stephens MD [address] [place] [address] Phone: tel: fax: Referral ID Status Reason Start Date Expiration Date Visits Requested Visits Authorized [id number] Authorized Consult and Treat 08/08/2024 08/08/2025 6 6 Scheduling Instructions [facility] Pharmacy CDTM program, A1C > 10% Encounter Details Date Type Department Care Team (Late st Contact Info) Description 08/08/2024 Orders Only [facility] [address] [place], [place] [id number] Nohemy Stephens MD [address] [place] [address] Type 2 diabetes mellitus with [...] Upcoming Encounters Date Type Department Care Team ([facility] st Contact Info) Description 04/08/2025 3:30 PM EDT Office Visit [facility] MED & PEDS [address] [place] [address] Sabine Bui FNP [address] [place] [address] Scheduled Referrals Name Type Priority Associated Diagnoses Orde r Schedule Referral to Pharmacy CDTM Outpatient Referral Routine Type 2 diabetes mellitus with hyperglycemia, without long-term current use of insulin ([facility]) Ordered: 08/08/2024 documented as of this encounter Visit Diagnoses Diagnosis Type 2 diabetes mellitus with hyperglycemia, without long-term current use of insulin ([facility])- Primary documented in this encounter Additional Health Concerns Assessment Noted Time PHQ-9 Depression Total Score: 0 12/03/19 23 10:09 AM EDT documented as of this encounter Care Teams Child Care Director Relationship Specialty Start Date End Date Sabine Bui FNP [address] [place] [id number] PCP - General Family Medicine 02/24/22 documented as of this encounter
--- OUTSIDE RECORDS SUMMARY | 2025-02-23 16:03 | XMS_ITS | Clinical Summary ---
Author Organization [facility] Address [address] [place] [address] Phone Care Team Providers Care Life Insurance Sales Name Role Phone Toya Marinelli MD Primary Care Provider [phone] Allergies No known active allergies Medications No known medications Active Problems Problem Noted Date Diagnosed Date Chest pain 01/14/2024 Overview (10/28/2024): Last Assessment & Plan: He had a few episode of chest discomfort, associated with palpitation symptoms. From his symptom description, it sounds like some type of tachyarrhythmia causing chest discomfort. Given his multiple risk factors, he will need to stress test with imaging. I will schedule nuclear perfusion stress test. 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 In future, goal to transition from lantus to SGLT2i Highly encouraged use of lifestyle interventions, pt reports currently ordering most food while driving, little food prep. Essential hypertension 07/04/2009 Palpitation 07/04/2009 Overview (10/28/2024): Last Assessment & Plan: He was having intermittent palpitation symptoms, mostly at night. I suspect it was caused by some types of tachyarrhythmia. Due to the frequency of the event, I will schedule 30 day ROCT. Encounters Date Type Department Care Team Description 02/21/2025 11:59 PM EDT - 02/22/2025 1:31 AM EDT Emergency [facility] Emergency [address] [place] [address] Emanuel Jacques MD Hyperglycemia (Primary Dx) Discharge Disposition: Home or Self Care from Last 3 Months Surgical History Surgery Date Site/Laterality Comments EYE [...] Mass Index 32.08 02/21/2025 6:09 PM EDT Plan of Treatment Health Maintenance Due Date Last Done Comments Diabetes: Annual Foot Exam 1974 Diabetes: Annual Retina Eye Exam 1974 Zoster Vaccines (1 of 2) 2014 Pneumococcal Vaccine: 50+ Years (2 of 2 - PCV) 02/28/2016 02/27/2015 Hepatitis B Vaccines (3 of 3 - 19+ 3-dose series) 02/05/2022 12/11/2021, 02/21/2021 Colorectal Cancer Screening: Colonoscopy 06/12/2022 Hepatitis C Screening 06/12/2022 Medicare Annual Wellness Visit 06/12/2022 Social Influencers of Health Screening 06/12/2022 Diabetes: Annual Urine Albumin-Creatinine Ratio (uACR) 06/15/2022 COVID-19 Vaccine (3 - 2023-2 5 season) 2024 03/27/2021, 03/06/2021 Depression Screening 06/30/2024 RSV Immunization Adult Patients (1 - Risk 60-74 years 1-dose series) 2024 Diabetes: Blood Sugar Contro l Test (HGBA1C) 02/20/2025 08/23/2024, 04/26/2024, 02/11/2019 Influenza Vaccine (#1) 2025 06/29/2013 Diabetes: Annual GFR (Glomerular Filtration Rate) 02/21/2026 02/21/2025, 09/20/2024, 08/26/2024 Hypertension/CHF/CAD Annual BMP Blood Test 02/21/2026 02/21/2025, 09/20/2024, 08/26/2024 DTaP,Tdap,and Td Vaccines (3 - Td or Tdap) 03/31/2028 03/31/2018, 06/29/2013 Cholesterol Screening (Lipid Panel) 12/22/2028 12/23/2023 HIV Screening Completed 12/23/2023 HIB Vaccines Aged Out [...] to complete this topic RSV Immunization Patients Under 20 months Aged Out No longer eligible [...] REFLEX MICROSCOPIC STAT 02/21/2025 6:47 PM EDT CBC WITH AUTO DIFFERENTIAL STAT 02/21/2025 6:41 PM EDT VENOUS BLOOD GAS STAT 02/21/2025 6:41 PM EDT BETA HYDROXYBUTYRATE STAT 02/21/2025 6:41 PM EDT OSMOLALITY STAT 02/21/2025 6:41 PM EDT MAGNESIUM STAT 02/21/2025 6:41 PM EDT LIPASE STAT 02/21/2025 6:41 PM EDT COMPREHENSIVE METABOLIC PANEL STAT 02/21/2025 6:41 PM EDT CBC AND DIFFERENTIAL STAT 02/21/2025 6:41 PM EDT POCT GLUCOSE BLOOD Routine 02/21/2025 6: 11 PM EDT from Last 3 Months Results * (ABNORMAL) POCT Glucose, blood (02/22/2025 1:03 AM EDT) Only the most recent of3 resultswithin the time period is included. [facility] Glucose POCT 122(H) 70 - 100 mg/dL 02/22/2025 1:05 AM EDT [facility] Blood Capillary blood specimen / Unknown 02/22/2025 1:03 AM EDT 02/22/2025 1:06 AM EDT Emanuel Arellano MD LAB POINT OF CARE TEST DOCKED DEVICE UNSOLICITED RESULTS Final Result [facility] [address] [place] [address], [place] [phone] * (ABNORMAL) Urinalysis with reflex microscopic (02/21/2025 6:47 PM EDT) [facility] Specific [place] Urine 1.022 1.003 - 1.030 LAB URINALYSIS - AUTOMATED METHOD 02/21/2025 7:23 PM [facility] pH, Urine 6.0 5.0 - 8.0 pH LAB URINALYSIS - AUTOMATED METHOD 02/21/2025 7:23 PM [facility] Leukocytes, Urine Negative Negative LAB URINALYSIS - AUTOMATED METHOD 02/21/2025 7:23 PM [facility] Nitrite, Urine Negative Negative LAB URINALYSIS - AUTOMATED METHOD 02/21/2025 7:23 PM [facility] Protein, Urine Negative <=Trace mg/dL LAB URINALYSIS - AUTOMATED METHOD 02/21/2025 7:23 PM [facility] Glucose, Urine >=1000(A) Negative mg/dL LAB URINALYSIS - AUTOMATED METHOD 02/21/2025 7:23 PM [facility] Ketones, Urine Negative Negative mg/dL LAB URINALYSIS - AUTOMATED METHOD 02/21/2025 7:23 PM [facility] Urobilinogen , Urine 0.2 0.2 - 1.0 mg/dL LAB URINALYSIS - AUTOMATED METHOD 02/21/2025 7:23 PM EDT [facility] Bilirubin, Urine Negative Negative LAB URINALYSIS - AUTOMATED METHOD 02/21/2025 7:23 PM EDT [facility] Blood, Urine Negative Negative LAB URINALYSIS - AUTOMATED METHOD 02/21/2025 7:23 PM EDT [facility] Urine Urine specimen obtained by clean catch procedure / Unknown Non-blood Collection / Unknown 02/21/2025 6:47 PM EDT 02/21/2025 7:10 PM EDT Emanuel Arellano MD LAB URINE ORDERABLES Final Result Performing Organization Address [facility]/ZIP Co de Phone Number [facility] [address] [place] [address], [place] [phone] * Beta hydroxybutyrate (02/21/2025 6:41 PM EDT) [facility] Beta-Hydroxybu tyrate 0.9 0.2 - 2.8 mg/dL LAB CHEMISTRY METHOD 02/21/2025 7:18 PM EDT [facility] Blood Venous blood specimen / Unknown Venipuncture / Unknown 02/21/2025 6:41 PM EDT 02/21/2025 7:15 PM EDT Emanuel Arellano MD LAB BLOOD ORDERABLES Final Result Performing Organization Address City/[facility]/ZIP Co de Phone Number [facility] [address] [place] [address], [place] [phone] * (ABNORMAL) CBC auto differential (02/21/2025 6:41 PM EDT) [facility] WBC 6.1 4.8 - 10.8 K/[facility] LAB HEMETOLOGY METHOD 02/21/2025 7:14 PM EDT [facility] RBC 5.40 4.50 - 5.50 M/mcL LAB HEMETOLOGY METHOD 02/21/2025 7:[facility] Hemoglobin 15.5 13.5 - 17.5 g/dL LAB HEMETOLOGY METHOD 02/21/2025 7:14 PM [facility] Hematocrit 45.7 42.0 - 54.0 % LAB HEMETOLOGY METHOD 02/21/2025 7:14 [facility] MCV 84.9 79.0 - 98.0 FL LAB HEMETOLOGY METHOD 02/21/2025 7:14 PM [facility] MCH 28.8 27.0 - 32.0 pcg LAB HEMETOLOGY METHOD 02/21/2025 7:14 PM [facility] MCHC 33.9 32.0 - 37.0 g/dL LAB HEMETOLOGY METHOD 02/21/2025 7:14 PM [facility] RDW 14.1 11.0 - 15.0 % LAB HEMETOLOGY METHOD 02/21/2025 7:14 PM [facility] Platelets 140 130 - 400 K/mcL LAB HEMETOLOGY METHOD 02/21/2025 7:14 PM [facility] MPV 13.1(H) 7.0 - 11.0 FL LAB HEMETOLOGY METHOD 02/21/2025 7:14 PM [facility] NRBC 0.0 <1.0 % LAB HEMETOLOGY METHOD 02/21/2025 7:14 PM [facility] NRBC Absolute 0.00 <0.10 K/mcL LAB HEMETOLOGY METHOD 02/21/2025 7:14 PM [facility] Neutrophils Relative 57.5 % LAB HEMETOLOGY METHOD 02/21/2025 7:14 PM [facility] Lymphocytes Relative 32.8 % LAB HEMETOLOGY METHOD 02/21/2025 7:14 PM EDT [facility] Monocytes Relative 7.5 % LAB HEMETOLOGY METHOD 02/21/2025 7:14 PM [facility] Eosinophils Relative 1.0 % LAB HEMETOLOGY METHOD 02/21/2025 7:14 PM [facility] Basophils Relative 0.5 % LAB HEMETOLOGY METHOD 02/21/2025 7:14 PM [facility] Immature Granulocytes Relative 0.7 % LAB HEMETOLOGY METHOD 02/21/2025 7:14 PM [facility] Neutrophils Absolute 3.53 1.50 - 7.00 K/mcL LAB HEMETOLOGY METHOD 02/21/2025 7:14 PM [facility] Lymphocytes Absolute 2.01 1.00 - 5.00 K/mcL LAB HEMETOLOGY METHOD 02/21/2025 7:14 PM [facility] Monocytes Absolute 0.46 0.20 - 1.00 K/mcL LAB HEMETOLOGY METHOD 02/21/2025 7:14 PM [facility] Eosinophils Absolute 0.06 0.00 - 0.50 K/mcL LAB HEMETOLOGY METHOD 02/21/2025 7:14 PM [facility] Basophils Absolute 0.03 0.00 - 0.20 K/mcL LAB HEMETOLOGY METHOD 02/21/2025 7:14 PM [facility] Immature Granulocytes Absolute 0.04(H) 0.00 - 0.03 K/mcL LAB HEMETOLOGY METHOD 02/21/2025 7:14 PM [facility] Blood Venous blood specimen / Unknown Venipuncture / Unknown 02/21/2025 6:41 PM EDT 02/21/2025 6:51 PM EDT us Emanuel Arellano MD LAB BLOOD ORDERABLES Final Result Performing Organization Address City/[facility]/ZIP Co de Phone Number [facility] [address] [place] [address], * (ABNORMAL) Osmolality (02/21/2025 6:41 PM EDT) Pathologist [facility] Osmolality Gordo 323(H) 280 - 300 mOsm/kg LAB CHEMISTRY METHOD 02/21/2025 7:28 PM EDT [facility] Blood Venous blood specimen / Unknown Venipuncture / Unknown 02/21/2025 6:41 PM EDT 02/21/2025 7:15 PM EDT Emanuel Arellano MD LAB BLOOD ORDERABLES Final Result Performing Organization Address [facility]/ZIP Co de Phone Number [facility] [address] [place] [address], * Magnesium (02/21/2025 6:41 PM EDT) [facility] Magnesium 2.1 1.9 - 2.6 mg/dL LAB CHEMISTRY METHOD 02/21/2025 7:18 PM EDT [facility] Blood Venous blood specimen / Unknown Venipuncture / Unknown 02/21/2025 6:41 PM EDT 02/21/2025 7:15 PM EDT Emanuel Arellano MD LAB BLOOD ORDERABLES Final Result [facility] [address] [place] [address], * (ABNORMAL) Lipase (02/21/2025 6:41 PM EDT) Pathologist [facility] Lipase 103(H) 13 - 75 unit/L LAB CHEMISTRY METHOD 02/21/2025 7:18 PM EDT [facility] Blood Venous blood specimen / Unknown Venipuncture / Unknown 02/21/2025 6:41 PM EDT 02/21/2025 7:15 PM EDT Emanuel Arellano MD LAB BLOOD ORDERABLES Final Result Performing Organization Address [facility] Co de Phone Number [facility] [address] [place] [address], [place] [phone] * (ABNORMAL) Venous blood gas (02/21/2025 6:41 PM EDT) pH, Alfonso 7.32 7.32 - 7.42 pH 02/21/2025 6:53 PM EDT [facility] pCO2, Alfonso 53(H) 41 - 51 mmHg 02/21/2025 6:53 PM EDT [facility] pO2, Alfonso 25 25 - 40 mmHg 02/21/2025 6:53 PM EDT [facility] HCO3, Venous 23.3 22.0 - 26.0 mmol/L 02/21/2025 6:53 PM EDT [facility] O2 Sat, Alfonso 50.1 % 02/21/2025 6:53 PM EDT [facility] Base Excess, Alfonso 0.0 -2.0 - 2.0 mmol/L 02/21/2025 6:53 PM EDT [facility] Blood Venous blood specimen / Unknown Venipuncture / Unknown 02/21/2025 6:41 PM EDT 02/21/2025 6:49 PM EDT Emanuel Arellano MD LAB BLOOD ORDERABLES Final Result Performing Organization Address [facility]/ZIP Co de Phone Number [facility] [address] [place] [address], [place] [phone] * (ABNORMAL) Comprehensive metabolic panel (02/21/2025 6:41 PM EDT) Sodium 131(L) 133 - 145 mmol/L LAB CHEMISTRY METHOD 02/21/2025 7:36 PM [facility] Potassium 5.0 3.5 - 5.5 mmol/L LAB CHEMISTRY METHOD 02/21/2025 7:36 PM [facility] Chloride 99 96 - 110 mmol/L LAB CHEMISTRY METHOD 02/21/2025 7:36 PM [facility] CO2 29 21 - 32 mmol/L LAB CHEMISTRY METHOD 02/21/2025 7:36 PM [facility] Anion Gap 3 3 - 11 LAB CHEMISTRY METHOD 02/21/2025 7:36 PM [facility] Glucose 514(HH) 70 - 100 mg/dL LAB CHEMISTRY METHOD 02/21/2025 7:36 PM [facility] BUN 47(H) 5 - 25 mg/dL LAB CHEMISTRY METHOD 02/21/2025 7:36 PM [facility] Creatinine 2.45(H) 0.70 - 1.30 mg/dL LAB CHEMISTRY METHOD 02/21/2025 7:36 PM [facility] eGFR 29(L) >=60 mL/min/1. 73m2 LAB CHEMISTRY METHOD 02/21/2025 7:36 PM [facility] Comment:Calculation based on the Chronic Kidney Disease Epidemiology Collaboration (CKD-EPI) equation refit without adjustment for race. BUN/Creatinine Ratio 19.2 LAB CHEMISTRY METHOD 02/21/2025 7:36 PM [facility] Calcium 8.9 8.5 - 10.5 mg/dL LAB CHEMISTRY METHOD 02/21/2025 7:36 PM [facility] AST (SGOT) 17 10 - 42 unit/L LAB CHEMISTRY METHOD 02/21/2025 7:36 PM [facility] ALT (SGPT) 49 10 - 60 unit/L LAB CHEMISTRY METHOD 02/21/2025 7:36 PM EDT [facility] Alkaline Phosphatase 75 42 - 121 unit/L LAB CHEMISTRY METHOD 02/21/2025 7:36 PM EDT [facility] Total Protein 7.4 6.0 - 8.0 g/dL LAB CHEMISTRY METHOD 02/21/2025 7:36 PM EDT [facility] Albumin 3.8 3.2 - 5.0 g/dL LAB CHEMISTRY METHOD 02/21/2025 7:36 PM EDT [facility] Total Bilirubin 0.6 0.0 - 1.4 mg/dL LAB CHEMISTRY METHOD 02/21/2025 7:36 PM EDT [facility] Blood Venous blood specimen / Unknown Venipuncture / Unknown 02/21/2025 6:41 PM EDT 02/21/2025 7:15 PM EDT Emanuel Arellano MD LAB BLOOD ORDERABLES Final Result [facility] [address] [place] [address], from Last 3 Months Insurance * Guarantor: Malika Foley Account Type Relation to Patient Date of Phone Billing Address Personal/Family Self [address] [place] [address] [facility] MEDICARE Member Subscriber Plan / Payer (Ef fective 2022-Present) Name:MALIKA FOLEY Relation to Subscriber:Self Name:Malika Foley Payer ID:[id number] Group ID:[id number] Type:Not on file Address: [place] [address] [address] Advance Directives Documents on File Type Date Recorded 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
--- OUTSIDE RECORDS SUMMARY | 2025-02-23 16:03 | XMS_ITS | Encounter Summary ---
Author Organization [employer] Address [address] [facility] [address] [place] [address] Care Team Providers Care Editor Greeting Card Name Role Phone Sabine Bui ALEXANDRA Primary Care Provider [phone] Encounter Details Date Type Department Care Team (Latest Contact Info) Description 02/23/2025 Travel Social History Tobacco Use Types Packs/Day Years [...] Description 04/08/2025 3:30 PM EDT Office Visit [facility] [address] [place] [address] Sabine Bui FNP [address] [place] [address] documented as of this encounter Visit Diagnoses Not on filedocumented in this encounter Additional Health Concerns Assessment Noted Time PHQ-9 Depression Total Score: 0 12/03/19 23 10:09 AM EDT documented as of this encounter Care Teams Editor Greeting Card Relationship Specialty Start Date End Date Sabine Bui FNP [address] [place] [address] PCP - General Family Medicine 02/24/22 documented as of this encounter
[2025-02-23 16:51] LABS: Anion Gap 13 (12-20); Blood Urea Nitrogen 40 mg/dL (9-16); Calcium 9.5 mg/dL (8.4-10.2); Carbon Dioxide 25 mmol/L (22-29); Chloride 102 mmol/L (96-108); Estimated Glomerular Filt Rate 37; Potassium 4.8 mmol/L (3.3-5.1); Sodium 135 mmol/L (135-145)
[2025-02-23 16:52] LABS: Uric Acid 8.9 mg/dL (3.4-7.0)
[2025-02-23 17:20] LABS: Folate 12.6 ng/mL (> or = 4.0); Vitamin B12 381 pg/mL (200-900)
[2025-02-23 19:10] LABS: Appearance Urine Clear; Glucose Urine UA 500 mg/dL (Negative); PH 6.0 (5.0-9.0); Specific Gravity - Urine 1.020 (1.005-1.025)
== END 2025-02-23 14:42 | disposition home or self-care (01) ==
LOC: HO.HHCL 14:41
PROVIDERS: Internal Medicine; PCP Registered Nurse; Visit Provider Nurse Practitioner
DX: E11.42 Type 2 diabetes mellitus with diabetic polyneuropathy (principal); E11.65 Type 2 diabetes mellitus with hyperglycemia; M54.89 Other dorsalgia; M10.9 Gout, unspecified; R42 Dizziness and giddiness
CPT/HCPCS: 36415; 80048; 81001; 82607; 82746; 84550

== ENCOUNTER 2025-04-12 08:30 | Outpatient (REF) | payer OTHER, SELFPAY ==
--- OUTSIDE RECORDS SUMMARY | 2025-04-08 15:30 | XMS_ITS | Encounter Summary ---
Author Organization [employer] Address [address] [place] [address] [address] [address] Care Team Providers Care Brattice Builder Name Role Phone Sabine Bui Primary Care Provider [phone] Reason for Referral * Consultation (Urgent) - Authorized Specialty Diagnoses / Procedures Referred By Sera santos Referred To Contact Urology Diagnoses Elevated PSA Sabine Bui FNP [address] [place] [address] Phone: tel: fax: [facility] Referral ID Status Reason Start Date Expiration Date Visits Requested Visits Authorized [id number] Authorized Specialty Services Required 04/10/2026 1 1 Encounter Details Date Type Department Care Team (Late st Contact Info) Description 04/08/2025 3:30 PM EDT Office Visit [facility] MED & PEDS [address] [place] [address] Sabine Bui FNP [address] [place] [address] Elevated PSA (Primary Dx); Type 2 diabetes mellitus with hyperglycemia, without long-term current use of insulin (HCC); Gout of foot, unspecified cause, unspecified chronicity, unspecified laterality; Dietary counseling; Exercise counseling; Stage 3b chronic kidney disease (CMS/HCC) (HCC); Type 2 diabetes mellitus with stage 3 chronic kidney disease, with long-term current use of insulin, unspecified whether stage 3a or 3b CKD (HCC); Essential hypertension Social History Tobacco Use Types Packs/Day Years [...] your housing situation today? I have anna chanell 03/31/[address] you li ve. Do you have problems with any of the following? None of the above 03/31/2025 Food Insecurity Answer Date Recorded Within the past 12 months, y ou worried that your food would run out before you got money to buy more: Never True 03/31/2025 Within the past 12 months,th e food you bought just didn't last and you didn't have enough money to get more: Never True 07/2024 Transportation Answer Date Recorded In the past 12 months, has l ack of transportation kept you from medical appts, meetings, work or from getting things needed for daily living? No 03/31/2025 Utilities Answer Date Recorded In the past 12 months, has t he electric, gas, oil or water company threatened to shut off services in your home? No 03/31/2025 Depression Answer Date Recorded Patient Health Questionnaire-2 Score 0 12/02/2022 Internet Access Answer Date Recorded Internet Access Q1 Yes 03/31/2025 Internet Access Q2 Not on file 03/31/2025 Sex and Gender Information Value Date Recorded Sex Assigned at Male 04/29/2022 10:26 AM EDT Legal Sex Male 10:26 AM EDT Gender Identity Male 04/29/2022 10:26 AM EDT Sexual Orientation Straight 04/29/2022 10 :26 AM EDT documented as of this encounter Last Filed Vital Signs Vital Sign Reading Time Taken Comments Blood Pressure 138/84 04/08/2025 3:37 PM EDT Pulse 82 04/08/2025 3:37 PM EDT Temperature 36.3 C (97.4 F) 04/08/2025 3:37 PM EDT Respiratory Rate 16 04/08/2025 3:37 PM EDT Oxygen Saturation - - Inhaled Oxygen Concentration - - Weight 102 kg (225 lb) 04/08/2025 3:37 PM EDT Height 180.3 cm (5' 11 ) 04/08/2025 3:37 PM EDT Body Mass Index 31.38 04/08/2025 3:37 PM EDT documented in this encounter Progress Notes * Sabine Bui, ALEXANDRA - 04/08/2025 3:30 PM EDT Subjective: Davis Redd is a 59 y.o. male w/ PMH pulmonary embolism on eliquis, T2DM, HTN, CKD, and gout, presents for a follow up visit - chronic conditions. HPI: Last PCP visit: 09/27/24 T2DM: reports no longer using the metformin (self discontinued d/t SE and wanting to decrease PO medications). Currently using Mounjaro 5mg subcutaneous weekly, as well as lantus 14 units nightly. A1c elevated at 9.9%. Denies polyuria, polydipsia, or polyphagia. Plan: increase to Mounjaro 7.5mg subc utaneous weekly. Elevated PSA: strongly encouraged to schedule with Urology. Repeat PSA ordered today. Gout: pt reports not currently using allopurinol. Uric acid level elevated at 8.9 mg/dL on 02.23.25,with goal less than 6.5 mg/dL. Pt uses prednisone PRN during acute flares as NSAIDS not recommendedwith history of CKD. Reviewed importance of preventative med as well as low purine diet. 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 Respiratory: Negative for cough and wheezing. Cardiovascular: Negative for chest pain and palpitations. Gastrointestinal: Negative for nausea and vomiting. Visit Vitals BP 138/84 (BP Location: Left arm, Patient Position: Sitting, BP Cuff Size: Adult) Pulse 82 Temp 97.4 ??F (36.3 ??C) (Oral) Resp 16 Ht 5' 11 (1.803 m) Wt 225 lb (102 kg) BMI 31.38 kg/m?? Smoking Status Never BSA 2.26 m?? Physical Exam Vitals reviewed. Constitutional: Appearance: Normal appearance. HENT: Head: Atraumatic. Right Ear: External ear normal. Left Ear: External ear normal. Cardiovascular: Rate and Rhythm: Normal rate and regular rhythm. Pulmonary: Effort: Pulmonary effort is normal. Breath sounds: Normal breath sounds. Neurological: Mental Status: He is alert and oriented to person, place, and time. Psychiatric: Mood and Affect: Mood normal. Behavior: Behavior normal. Problem List Items Addressed This Visit Cardiac and Vasculature Essential hypertension Current Assessment & Plan BP goal < 140/90 mmHg Continue with lisinopril-hydrochlorothiazide 20-25mg daily Amlodipine 5mg daily Encouraged to continue with lifestyle interventions such as daily physical activity (goal 150mins weekly) and low salt diet ED precautions reviewed Endocrine and Metabolic Type 2 diabetes mellitus with stage 3 chronic kidney disease, with long-term current use of insulin([facility]) Overview Lab Results Component Value Date HGBA1C 9.9 (A) 04/08/2025 HGBA1C 9.4 (A) 08/23/2024 HGBA1C 6.8 (H) 12/11/2021 HGBA1C 8.4 (H) 01/24/2021 A1c goal </= 7.0%. above goal Continues lantus 14 units nightly Goal FBG 90-130 Mounjaro 7.5mg subcutaneous weekly Previous medications: - Meformin (pt self DC 2024 d/t GI SE/wanting to decrease PO med burden) Highly encouraged use of lifestyle interventions, pt reports currently ordering most food while driving, little food prep. Current Assessment & Plan - Increase to Mounjaro 7.5mg subcutaneous weekly, increase lifestyle interventions Relevant Medications Tirzepatide (Mounjaro) 7.5 MG/0.5ML solution auto-injector Other Relevant Orders POCT Glucose (Completed) POCT Hgb A1c (Completed) Lipid Panel, Standard Albumin, Random Urine W/Creatinine Basic Metabolic Panel Genitourinary and Reproductive Stage 3b chronic kidney disease (CMS/HCC) ([facility]) Current Assessment & Plan Following with [facility] Pt aware of need to avoid NSAIDs and maintain good hydration status Encouraged to follow up with specialist Repeat BMP ordered Relevant Medications allopurinol (Zyloprim) 100 MG tablet predniSONE (Deltasone) 20 MG tablet Other Relevant Orders Basic Metabolic Panel Elevated PSA - Primary Overview Lab Results Component Value Date PSA 13.69 (H) 12/23/2023 - Referred to Urology December 2023 - Encouraged to follow-up with Urology 04/26/24 - Asked nursing staff to help set him up for appointment and encouraged importance of following-up today 09/21/24. - 09/27/24 - PCP and pt called [facility] to schedule initial consult. Called outside ofbusiness hours. Pt to re-attempt this week if has not heard back. Call our office with any difficulties. - 04/10/25: re-referral to Urology Current Assessment & Plan Strongly encouraged to follow up with Urology and the concerns with elevated PSA Relevant Orders PSA,Total Referral to Urology Musculoskeletal and Injuries Gout Current Assessment & Plan -Pt reports > 2 flares/year, which indicates benefit of ULT -Given dosing adjustments with hx CKD, pt currently prescribed allopurinol 50mg daily -Considerations: hydrochlorothiazide which may increase frequency of flares -Acute flares tx successfully with prednisone -Rheum consult Jan 2024 ([facility] Rec titrating allopurinol upwards in 50mg incrementsevery 3-4 weeks with goal serum uric acid less than 6.5 - Increase to allopurinol 100mg daily Jul 2024 - Rx sent to pharmacy, plan to trend uric acid levels Relevant Medications allopurinol (Zyloprim) 100 MG tablet predniSONE (Deltasone) 20 MG tablet Other Visit Diagnoses Dietary counseling Exercise counseling Follow up: 4-8 weeks, sooner PRN documented in this encounter Miscellaneous Notes * Assessment & Plan Note - ALEXANDRA Tejada - 04/10/2025 8:27 PM EDTAssociated Problem(s): Gout -Pt reports > 2 flares/year, which indicates benefit of ULT -Given dosing adjustments with hx CKD, pt currently prescribed allopurinol 50mg daily -Considerations: hydrochlorothiazide which may increase frequency of flares -Acute flares tx successfully with prednisone -Rheum consult Jan 2024 ([facility]). Rec titrating allopurinol upwards in 50mg incrementsevery 3-4 weeks with goal serum uric acid less than 6.5 - Increase to allopurinol 100mg daily Jul 2024 - Rx sent to pharmacy, plan to trend uric acid levels * Assessment & Plan Note - ALEXANDRA Tejada - 04/10/2025 8:25 PM EDTAssociated Problem(s): Elevated PSA Strongly encouraged to follow up with Urology and the concerns with elevated PSA * Assessment & Plan Note - ALEXANDRA Tejada - 04/10/2025 8:24 PM EDTAssociated Problem(s): Essential hypertension BP goal < 140/90 mmHg Continue with lisinopril-hydrochlorothiazide 20-25mg daily Amlodipine 5mg daily Encouraged to continue with lifestyle interventions such as daily physical activity (goal 150mins weekly) and low salt diet ED precautions reviewed * Assessment & Plan Note - ALEXANDRA Tejada - 04/10/2025 8:16 PM EDTAssociated Problem(s): Type 2 diabetes mellitus with stage 3 chronic kidney disease, with long-termcurrent use of insulin (HCC) - Increase to Mounjaro 7.5mg subcutaneous weekly, increase lifestyle interventions * Assessment & Plan Note - ALEXANDRA Tejada - 04/10/2025 8:08 PM EDTAssociated Problem(s): Stage 3b chronic kidney disease (CMS/HCC) (HCC) Following with [facility] Pt aware of need to avoid NSAIDs and maintain good hydration status Encouraged to follow up with specialist Repeat BMP ordered documented in this encounter Plan of Treatment Scheduled Orders Name Type Priority Associated Diagnoses Orde r Schedule PSA,Total Lab Routine Elevated PSA Expected: 04/08/2025, Expires: 04/08/2026 Lipid Panel, Standard Lab Routine Type 2 diabetes mellitus with stage 3 chronic kidney disease, with long-term current use of insulin, unspecified whether stage 3a or 3b CKD (HCC) Expected: 04/08/2025 (Approximate), Expires: 04/08/2026 Albumin, Random Urine W/Creatinine Lab Routine Type 2 diabetes mellitus with stage 3 chronic kidney disease, with long-term current use of insulin, unspecified whether stage 3a or 3b CKD (HCC) Expected: 04/08/2025 (Approximate), Expires: 04/08/2026 Basic Metabolic Panel Lab Routine Stage 3b chronic kidney disease (CMS/HCC) (HCC) Type 2 diabetes mellitus with stage 3 chronic kidney disease, with long-term current use of insulin, unspecified whether stage 3a or 3b CKD (HCC) Expected: 04/10/2025 (Approximate), Expires: 04/10/2026 Scheduled Referrals Name Type Priority Associated Diagnoses Orde r Schedule Referral to Urology Outpatient Referral Urgent Elevated PSA Expected: 04/10/2025 (Approximate), Expires: 04/10/2026 documented as of this encounter Procedures Procedure Name Priority Date/Time Associated Diagnosis Comments POCT GLYCATED HEMOGLOBIN, TOTAL Routine 04/08/2025 3:41 PM EDT Type 2 diabetes mellitus with stage 3 chronic kidney disease, with long-term current use of insulin, unspecified whether stage 3a or 3b CKD (HCC) POCT GLUCOSE Routine 04/08/2025 3:40 PM EDT Type 2 diabetes mellitus with stage 3 chronic kidney disease, with long-term current use of insulin, unspecified whether stage 3a or 3b CKD (HCC) documented in this encounter Results * (ABNORMAL) POCT Hgb A1c (04/08/2025 3:41 PM EDT) Hemoglobin A1C 9.9(A) 4.0 - 5.7 % QC Media Lot # [id number] Lot# Expiration Date [id number] Blood 04/08/2025 3:41 PM EDT Sabine MORRIS POINT OF CARE TEST ENTER/EDIT ORDERABLES Final Result * POCT Glucose (04/08/2025 3:40 PM EDT) Glucose Blood, POC 142 60 - 200 mg/dL QC Media Lot # [id number] Lot# Expiration Date ,026 Blood Capillary blood specimen / Unknown 04/08/2025 3:40 PM EDT Sabine MORRIS POINT OF CARE TEST ENTER/EDIT ORDERABLES Final Result documented in this encounter Visit Diagnoses Diagnosis Elevated PSA- Primary Elevated prostate specific antigen (PSA) Type 2 diabetes mellitus with hyperglycemia, without long-term current use of insulin (HCC) Gout of foot, unspecified cause, unspecified chronicity, unspecified laterality Dietary counseling Dietary surveillance and counseling Exercise counseling Stage 3b chronic kidney disease (CMS/HCC) (HCC) Type 2 diabetes mellitus with stage 3 chronic kidney disease, with long-term current use of insulin, unspecified whether stage 3a or 3b CKD (HCC) Essential hypertension Unspecified essential hypertension documented in this encounter Additional Health Concerns Assessment Noted Time PHQ-9 Depression Total Score: 0 12/03/19 23 10:09 AM EDT documented as of this encounter Care Teams Brattice Builder Relationship Specialty Start Date End Date Sabnie Bui FNP [address] [place] [id number] PCP - General Family Medicine 02/24/22 documented as of this encounter
--- OUTSIDE RECORDS SUMMARY | 2025-04-12 08:53 | XMS_ITS | Encounter Summary ---
Author Organization [employer] Address [address] [facility] 7t [place] [address] Care Team Providers Care Limo Driver Name Role Phone Sabine Bui Primary Care Provider [phone] Reason for Visit * Reason Comments Med Refill Encounter Details Date Type Department Care Team ([facility] st Contact Info) Description 02/10/2025 Refill [facility] MED & PEDS [address] [place], [place] [phone] Sabine Bui FNP [address] [place] [address] Type 2 diabetes mellitus with hyperglycemia, without long-term current use of insulin ([facility]) Social History Tobacco Use Types Packs/Day [...] without long-term current use of insulin (HCC) documented in this encounter Additional Health Concerns Assessment Noted Time PHQ-9 Depression Total Score: 0 12/03/19 23 10:09 AM EDT documented as of this encounter Care Teams Limo Driver Relationship Specialty Start Date End Date Sabine Bui FNP [address] [place] [address] PCP - General Family Medicine 02/24/22 documented as of this encounter
--- OUTSIDE RECORDS SUMMARY | 2025-04-12 08:53 | XMS_ITS | Encounter Summary ---
Author Organization [employer] Address [address] [facility] 7t [place] [address] Care Team Providers Care Floor Renovator Name Role Phone Sabine Bui Primary Care Provider [phone] Reason for Visit * Reason Comments Med Refill Encounter Details Date Type Department Care Team ([facility] st Contact Info) Description 12/30/2024 Refill [facility] MED & PEDS [address] [place], [place] [phone] Sabine Bui FNP [address] [place] [address] Type 2 diabetes mellitus with hyperglycemia, without long-term current use of insulin ([facility]) Social History Tobacco Use Types Packs/Day Years [...] documented as of this encounter Care Teams Floor Renovator Relationship Specialty Start Date End Date Sabine Bui FNP [address] [place] [address] PCP - General Family Medicine 02/24/22 documented as of this encounter
--- OUTSIDE RECORDS SUMMARY | 2025-04-12 08:53 | XMS_ITS | Encounter Summary ---
Author Organization [employer] Address [address] [facility] 7t [place] [address] Care Team Providers Care Adult Daycare Coordinator Name Role Phone Sabine Bui Primary Care Provider [phone] Reason for Visit * Reason Onset Date Comments ER Follow-up 08/21/2023 Encounter Details Date Type Department Care Team ([facility] st Contact Info) Description 08/21/2023 Telephone [facility] CHC MED & PEDS [address] [place], [place] [phone] Sabine Bui FNP [address] [place] [address] ER Follow-up Social History Tobacco Use Types [...] reviewed - thank you. Awaiting notes from [facility] for further review. Glad he is [...] pain. Unable to understand all of his [place] and asked for permission to call patient back with healthcare interpreter line, but patient declined because he is [...] to PCP for her review. Notes from [facility] not yet in chart. ARLETTE Jacobson [...] message below. No answer. LM in both Vietnamese and [place] to call us back to let us know how he is doing and schedule a f/u visit with PCP. Notes being requested by fax from [facility] by ARLETTE Jacobson. Routing back to [facility] nurses to try again to schedule ED f/u. Patient calling to report ED visit on : Date: 08/20 Hospital: [facility] Seen for: Chest pain Patient advised will forward to team nurse for follow up Please contact pt at [phone] ([place]) * Telephone Encounter - Toya Ring - 08/21/2023 10:55 AM EST Patient calling to report ED visit on : Date: 08/20 [facility]: [facility] Seen for: Chest pain Patient advised will forward to team nurse for follow up Please contact pt at [phone] ([place]) documented in this encounter Plan of Treatment Not on file documented as of this encounter Visit Diagnoses Not on filedocumented in this encounter Additional Health Concerns Assessment Noted Time PHQ-9 Depression Total Score: 0 12/03/19 23 10:09 AM EDT documented as of this encounter Care Teams Adult Daycare Coordinator Relationship Specialty Start Date End Date Sabine Bui FNP [address] [place] [id number] PCP - General Family Medicine 02/24/22 documented as of this encounter
--- OUTSIDE RECORDS SUMMARY | 2025-04-12 08:53 | XMS_ITS | Encounter Summary ---
Author Organization [employer] Address [address] [facility] 7t [place] [address] Care Team Providers Care Geospatial Program Management Officer Name Role Phone Sabine Bui Primary Care Provider [phone] Reason for Visit * Reason Onset Date Comments Chart Prep 04/07/2025 Encounter Details Date Type Department Care Team ([facility] Contact Info) Description 04/07/2025 Telephone [facility] CHC MED & PEDS [address] [place], [place] [phone] Sabine Bui FNP [address] [place] [address] Chart Prep Social History Tobacco Use Types Packs/Day Years [...] housing situation today? I have anna lua 03/31/[address] you li [...] encounter Miscellaneous Notes * Telephone Encounter - Sona Riddle [place] - 04/07/2025 1:49 PM EDT Chart Prep Labs: done Images: done Referrals: complete Vaccines due: Covid, Flu, PCV20, RSV, and Zoster Screenings: colonoscopy and eye exam Overdue care gaps: A1c, Glucose, SBIRT, PHQ-9, and Disability screen documented in this encounter Plan of Treatment Not on file documented as of this encounter Visit Diagnoses Not on filedocumented in this encounter Additional Health Concerns Assessment Noted Time PHQ-9 Depression Total Score: 0 12/03/19 23 10:09 AM EDT documented as of this encounter Care Teams Geospatial Program Management Officer Relationship Specialty Start Date End Date Sabine Bui FNP [address] [place] [address] PCP - General Family Medicine 02/24/22 documented as of this encounter
--- OUTSIDE RECORDS SUMMARY | 2025-04-12 08:53 | XMS_ITS | Encounter Summary ---
Author Organization [employer] Address [address] [facility] 7t [place] [address] Care Team Providers Care Telephone Messenger Name Role Phone Sabine Bui Primary Care Provider [phone] Reason for Visit * Reason Comments Med Refill Encounter Details Date Type Department Care Team ([facility] st Contact Info) Description 10/27/2024 Refill [facility] CH[facility] MED & PEDS [address] [place], [place] [phone] Sabine Bui FNP [address] [place] [address] Gout of foot, unspecified cause, unspecified chronicity, [...] documented as of this encounter Care Teams Telephone Messenger Relationship Specialty Start Date End Date Sabine Bui FNP [address] [place] [id number] PCP - General Family Medicine 02/24/22 documented as of this encounter
--- OUTSIDE RECORDS SUMMARY | 2025-04-12 08:53 | XMS_ITS | Encounter Summary ---
Author Organization [employer] Address [address] [facility] 7t [place] [address] Care Team Providers Care Transformer Coil Winder Name Role Phone Sabine Bui [facility] Primary Care Provider [phone] Reason for Visit * Reason Comments Med Refill Encounter Details Date Type Department Care Team (Late st Contact Info) Description 03/28/2023 Refill [facility] [address] [place], [place] [phone] [facility] [address] [place] [address] Social History Tobacco Use Types Packs/Day Years [...] documented as of this encounter Care Teams Transformer Coil Winder Relationship Specialty Start Date End Date Sabine Bui FNP [address] [place] [address] PCP - General Family Medicine 02/24/22 documented as of this encounter
--- OUTSIDE RECORDS SUMMARY | 2025-04-12 08:53 | XMS_ITS | Clinical Summary ---
Author Organization [facility] Address [address] [place] [address] Phone Care Team Providers Care Hvac Lead Name Role Phone Toya Marinelli MD Primary Care Provider [phone] Allergies No known active allergies Medications No [...] perfusion stress test. 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 In future, goal to [...] Date Type Department Care Team Description 02/23/2025 8:21 PM EDT - 02/24/2025 3:03 AM EDT Emergency [facility] Emergency [address] [place] [address] Discharge Disposition: Home or Self Care 02/21/2025 11:59 PM EDT - 02/22/2025 1:31 AM EDT Emergency [facility] Emergency [address] [place] [address] Emanuel Jacques MD Hyperglycemia (Primary Dx) Discharge Disposition: Home or Self Care from Last 3 Months Surgical History Surgery Date Site/Laterality Comments EYE SURGERY PROCEDURE: HISTORICAL EYE SURGERY; COMMENT: right eye pterygium BACK SURGERY PROCEDURE: HISTORICAL BACK SURGERY; COMMENT: LS DISC HERNIATION Medical History Medical History Date Comments DM (diabetes mellitus) (CMS/HCC V24, [facility] V28 ) HTN (hypertension) Asthma Social History Tobacco Use Types Packs/Day Years [...] Sign Reading Time Taken Comments Blood Pressure 169/93 02/24/2025 1:36 AM EDT Pulse 53 02/24/2025 1:36 AM EDT Temperature 36.5 C (97.7 F) 02/24/2025 1:36 AM EDT Respiratory Rate 16 02/24/2025 1:36 AM EDT Oxygen Saturation 100% 02/24/2025 1:36 AM EDT Inhaled Oxygen Concentration - - Weight 104 kg (230 lb) 02/23/2025 8:29 PM EDT Height 180.3 cm (5' 11 ) 02/21/2025 6:09 PM EDT Body Mass Index 32.08 02/21/2025 6:09 PM EDT Plan of Treatment Health Maintenance Due Date Last Done Comments Colorectal Cancer Screening: Colonoscopy 1965 Diabetes: Annual Foot Exam 1974 Diabetes: Annual Retina Eye Exam 1974 RSV Immunization Adult Patients (1 - Risk 50-74 years 1-dose series) 2014 Zoster Vaccines (1 of 2) 2014 Pneumococcal Vaccine: 50+ Years (2 of 2 - PCV) 02/28/2016 02/27/2015 Hepatitis B Vaccines (3 of 3 - 19+ 3-dose series) 02/05/2022 12/11/2021, 02/21/2021 Hepatitis C Screening 06/12/2022 Medicare Annual Wellness Visit 06/12/2022 Social Influencers of Health Screening 06/12/2022 Diabetes: Annual Urine Albumin-Creatinine Ratio (uACR) 06/15/2022 Depression Screening 06/30/2024 Diabetes: Blood Sugar Control Test (HGBA1C) 02/20/2025 08/23/2024, 04/26/2024, 02/11/2019 COVID-19 Vaccine ( season) 2025 03/27/2021, 03/06/2021 Influenza Vaccine (#1) 2025 06/29/2013 Diabetes: Annual GFR (Glomerular Filtration Rate) 02/23/2026 02/23/2025, 02/23/2025, 02/21/2025, Additional history exists Hypertension/CHF/CAD Annual BMP Blood Test 02/23/2026 02/23/2025, 02/23/2025, 02/21/2025, Additional history exists DTaP,Tdap,and Td Vaccines (3 - Td or [...] 20 months Aged Out No longer eligible based on patient's age to complete this topic Varicella Vaccines Aged Out No longer eligible based on patient's age to complete this topic Procedures Procedure Name Priority Date/Time Associated Diagnosis Comments POCT GLUCOSE BLOOD Routine 02/24/2025 1: 40 AM EDT POCT GLUCOSE BLOOD Routine 02/23/2025 10 :53 PM EDT POC GLUCOSE STAT 02/23/2025 10:53 PM EDT URINALYSIS WITH REFLEX MICROSCOPIC STAT 02/23/2025 10:52 PM EDT URINALYSIS WITH REFLEX MICROSCOPIC STAT 02/23/2025 10:52 PM EDT VENOUS BLOOD GAS STAT 02/23/2025 10:5 1 PM EDT CBC WITH AUTO DIFFERENTIAL STAT 02/23/2025 8:39 PM EDT BETA HYDROXYBUTYRATE STAT 02/23/2025 8:39 PM EDT OSMOLALITY STAT 02/23/2025 8:39 PM EDT MAGNESIUM STAT 02/23/2025 8:39 PM EDT LIPASE STAT 02/23/2025 8:39 PM EDT COMPREHENSIVE METABOLIC PANEL STAT 02/23/2025 8:39 PM EDT CBC AND DIFFERENTIAL STAT 02/23/2025 8:39 PM EDT GURROLA URINE CULTURE TUBE Routine 02/24/20 12:00 AM EDT EXTRA TUBES Routine 02/23/2025 12:00 AM EDT POCT GLUCOSE BLOOD Routine 02/22/2025 1: 03 [...] Months Results * (ABNORMAL) POCT Glucose, blood (02/24/2025 1:40 AM EDT) Only the most recent of5 resultswithin the time period is included. Glucose POCT 347(H) 70 - 100 mg/dL 02/24/2025 1:41 AM EDT [facility] Blood Capillary blood specimen / Unknown 02/24/2025 1:40 AM EDT 02/24/2025 1:42 AM EDT us Generic Provider Poct LAB POINT OF CARE TEST DOCKED DEVICE UNSOLICITED RESULTS Final Result [facility] [address] [place] [address], * (ABNORMAL) POC glucose manually resulted (02/23/2025 10:53 PM EDT) [facility] Glucose POC 288(A) 70 - 110 mg/dL Blood Capillary blood specimen / Unknown 02/23/2025 10:53 PM EDT Brady Wolfe MD POINT OF CARE TEST ENTER/EDIT O RDERABLES Final Result * (ABNORMAL) Urinalysis with reflex microscopic (02/23/2025 10:52 PM EDT) Only the most recent of2 resultswithin the time period is included. [facility] Specific [place] Urine 1.020 1.003 - 1.030 LAB URINALYSIS - AUTOMATED METHOD 02/23/2025 11:04 PM EDT [facility] pH, Urine 5.5 5.0 - 8.0 pH LAB URINALYSIS - AUTOMATED METHOD 02/23/2025 11:04 PM EDT [facility] Leukocytes, Urine Negative Negative LAB URINALYSIS - AUTOMATED METHOD 02/23/2025 11:04 PM EDT [facility] Nitrite, Urine Negative Negative LAB URINALYSIS - AUTOMATED METHOD 02/23/2025 11:04 PM EDT [facility] Protein, Urine 30(A) <=Trace mg/dL LAB URINALYSIS - AUTOMATED METHOD 02/23/2025 11:04 PM [facility] Glucose, Urine 500(A) Negative mg/dL LAB URINALYSIS - AUTOMATED METHOD 02/23/2025 11:04 PM [facility] Ketones, Urine Negative Negative mg/dL LAB URINALYSIS - AUTOMATED METHOD 02/23/2025 11:04 PM [facility] Urobilinogen, Urine 0.2 0.2 - 1.0 mg/dL LAB URINALYSIS - AUTOMATED METHOD 02/23/2025 11:04 PM [facility] Bilirubin, Urine Negative Negative LAB URINALYSIS - AUTOMATED METHOD 02/23/2025 11:04 PM [facility] Blood, Urine Negative Negative LAB URINALYSIS - AUTOMATED METHOD 02/23/2025 11:04 PM [facility] RBC, Urine 0.5 0 - 4 /HPF LAB URINALYSIS - AUTOMATED METHOD 02/23/2025 11:04 PM [facility] WBC, Urine 0.7 0 - 4 /HPF LAB URINALYSIS - AUTOMATED METHOD 02/23/2025 11:04 PM [facility] Squamous Epithelial, Urine 2 0 - 60 /LPF LAB URINALYSIS - AUTOMATED METHOD 02/23/2025 11:04 PM [facility] Bacteria, Urine Negative Negative /HPF LAB URINALYSIS - AUTOMATED METHOD 02/23/2025 11:04 PM [facility] Hyaline Casts, Urine 0.0 0 - 3 /LPF LAB URINALYSIS - AUTOMATED METHOD 02/23/2025 11:04 PM [facility] Urine Urine specimen obtained by clean catch procedure / Unknown Non-blood Collection / Unknown 02/23/2025 10:52 PM EDT 02/23/2025 10:57 PM EDT Brady Wolfe MD LAB URINE ORDERABLES Final Resu lt Performing Organization Address [facility]/ZIP Co de Phone Number [facility] [address] [place] [address], * (ABNORMAL) Venous blood gas (02/23/2025 10:51 PM EDT) Only the most recent of2 resultswithin the time period is included. Pathologist [facility] pH, Alfonso 7.35 7.32 - 7.42 pH 02/23/2025 11:03 PM EDT [facility] pCO2, Alfonso 55(H) 41 - 51 mmHg 02/23/2025 11:03 PM EDT [facility] pO2, Alfonso 20(L) 25 - 40 mmHg 02/23/2025 11:03 PM EDT [facility] HCO3, Venous 25.0 22.0 - 26.0 mmol/L 02/23/2025 11:03 PM EDT [facility] O2 Sat, Alfonso <30.0 % 02/23/2025 11:03 PM EDT [facility] Base Excess, Alfonso 3.1(H) -2.0 - 2.0 mmol/L 02/23/2025 11:03 PM EDT [facility] Blood Venous blood specimen / Unknown Venipuncture / Unknown 02/23/2025 10:51 PM EDT 02/23/2025 10:57 PM EDT Brady Wolfe MD LAB BLOOD ORDERABLES Final Resu lt Performing Organization Address [facility]/ZIP Co de Phone Number [facility] [address] [place] [address], * Beta hydroxybutyrate (02/23/2025 8:39 PM EDT) Only the most recent of2 resultswithin the time period is included. Pathologist [facility] Beta-Hydroxybu tyrate 1.3 0.2 - 2.8 mg/dL LAB CHEMISTRY METHOD 02/23/2025 9:17 PM EDT [facility] Blood Venous blood specimen / Unknown Venipuncture / Unknown 02/23/2025 8:39 PM EDT 02/23/2025 8:51 PM EDT us Brady Wolfe MD LAB BLOOD ORDERABLES Final Resu lt [facility] [address] [place] [address], [place] [phone] * (ABNORMAL) CBC auto differential (02/23/2025 8:39 PM EDT) Only the most recent of2 resultswithin the time period is included. WBC 8.5 4.8 - 10.8 K/mcL LAB HEMETOLOGY METHOD 02/23/2025 8:58 PM EDT [facility] RBC 5.60(H) 4.50 - 5.50 M/mcL LAB HEMETOLOGY METHOD 02/23/2025 8:58 PM EDT [facility] Hemoglobin 16.3 13.5 - 17.5 g/dL LAB HEMETOLOGY METHOD 02/23/2025 8:58 PM EDT [facility] Hematocrit 48.3 42.0 - 54.0 % LAB HEMETOLOGY METHOD 02/23/2025 8:58 PM EDT [facility] MCV 85.6 79.0 - 98.0 FL LAB HEMETOLOGY METHOD 02/23/2025 8:58 PM EDT [facility] MCH 28.9 27.0 - 32.0 pcg LAB HEMETOLOGY METHOD 02/23/2025 8:58 PM EDT [facility] MCHC 33.7 32.0 - 37.0 g/dL LAB HEMETOLOGY METHOD 02/23/2025 8:58 PM EDT [facility] RDW 14.4 11.0 - 15.0 % LAB HEMETOLOGY METHOD 02/23/2025 8:58 PM EDT [facility] Platelets 162 130 - 400 K/mcL LAB HEMETOLOGY [facility] MPV 12.5(H) 7.0 - 11.0 FL LAB HEMETOLOGY METHOD 02/23/2025 8:58 PM EDT [facility] NRBC 0.0 <1.0 % LAB HEMETOLOGY METHOD 02/23/2025 8:58 PM EDT [facility] NRBC Absolute 0.00 <0.10 K/mcL LAB HEMETOLOGY METHOD 02/23/2025 8:58 [facility] Neutrophils Relative 55.7 % LAB HEMETOLOGY METHOD 02/23/2025 8:58 [facility] Lymphocytes Relative 34.9 % LAB HEMETOLOGY METHOD 02/23/2025 8:58 [facility] Monocytes Relative 7.7 % LAB HEMETOLOGY METHOD 02/23/2025 8:58 PM [facility] Eosinophils Relative 0.8 % LAB HEMETOLOGY METHOD 02/23/2025 8:58 [facility] Basophils Relative 0.4 % LAB HEMETOLOGY METHOD 02/23/2025 8:58 PM EDT [facility] Immature Granulocytes Relative 0.5 % LAB HEMETOLOGY METHOD 02/23/2025 8:58 PM EDT [facility] Neutrophils Absolute 4.75 1.50 - 7.00 K/mcL LAB HEMETOLOGY METHOD 02/23/2025 8:58 PM EDT [facility] Lymphocytes Absolute 2.97 1.00 - 5.00 K/mcL LAB HEMETOLOGY METHOD 02/23/2025 8:58 PM EDT [facility] Monocytes Absolute 0.66 0.20 - 1.00 K/mcL LAB HEMETOLOGY METHOD 02/23/2025 8:58 PM EDT [facility] Eosinophils Absolute 0.07 0.00 - 0.50 K/mcL LAB HEMETOLOGY METHOD 02/23/2025 8:58 PM EDT [facility] Basophils Absolute 0.03 0.00 - 0.20 K/mcL LAB HEMETOLOGY METHOD 02/23/2025 8:58 PM EDT [facility] Immature Granulocytes Absolute 0.04(H) 0.00 - 0.03 K/mcL LAB HEMETOLOGY METHOD 02/23/2025 8:58 PM EDT [facility] Blood Venous blood specimen / Unknown Venipuncture / Unknown 02/23/2025 8:39 PM EDT 02/23/2025 8:50 PM EDT Brady Wolfe MD LAB BLOOD ORDERABLES Final Resu lt [facility] [address] [place] [address], [place] [phone] * (ABNORMAL) Osmolality (02/23/2025 8:39 PM EDT) Only the most recent of2 resultswithin the time period is included. Osmolality Gordo 316(H) 280 - 300 mOsm/kg LAB CHEMISTRY METHOD 02/23/2025 9:32 PM EDT [facility] Blood Venous blood specimen / Unknown Venipuncture / Unknown 02/23/2025 8:39 PM EDT 02/23/2025 8:51 PM EDT us Brady Wolfe MD LAB BLOOD ORDERABLES Final Resu lt [facility] [address] [place] [address], [place] [phone] * (ABNORMAL) Magnesium (02/23/2025 8:39 PM EDT) Only the most recent of2 resultswithin the time period is included. Magnesium 1.5(L) 1.9 - 2.6 mg/dL LAB CHEMISTRY METHOD 02/23/2025 9:15 PM EDT [facility] Blood Venous blood specimen / Unknown Venipuncture / Unknown 02/23/2025 8:39 PM EDT 02/23/2025 8:51 PM EDT us Brady Wolfe MD LAB BLOOD ORDERABLES Final Resu lt Performing Organization Address [facility]/ZIP Co de Phone Number [facility] [address] [place] [address], [place] [phone] * (ABNORMAL) Lipase (02/23/2025 8:39 PM EDT) Only the most recent of2 resultswithin the time period is included. Pathologist [facility] Lipase 88(H) 13 - 75 unit/L LAB CHEMISTRY METHOD 02/23/2025 9:15 PM EDT [facility] Blood Venous blood specimen / Unknown Venipuncture / Unknown 02/23/2025 8:39 PM EDT 02/23/2025 8:51 PM EDT us Brady Wolfe MD LAB BLOOD ORDERABLES Final Resu lt Performing Organization Address City[facility]/ZIP Co de Phone Number [facility] [address] [place] [address], [place] [phone] * (ABNORMAL) Comprehensive metabolic panel (02/23/2025 8:39 PM EDT) Only the most recent of2 resultswithin the time period is included. Sodium 133 133 - 145 mmol/L LAB CHEMISTRY METHOD 02/23/2025 9:17 PM EDT [facility] Potassium 4.7 3.5 - 5.5 mmol/L LAB CHEMISTRY METHOD 02/23/2025 9:17 PM [facility] Chloride 102 96 - 110 mmol/L LAB CHEMISTRY METHOD 02/23/2025 9:17 PM [facility] CO2 26 21 - 32 mmol/L LAB CHEMISTRY METHOD 02/23/2025 9:17 PM [facility] Anion Gap 5 3 - 11 LAB CHEMISTRY METHOD 02/23/2025 9:17 PM [facility] Glucose 276(H) 70 - 100 mg/dL LAB CHEMISTRY METHOD 02/23/2025 9:17 PM [facility] BUN 50(H) 5 - 25 mg/dL LAB CHEMISTRY METHOD 02/23/2025 9:17 PM [facility] Creatinine 3.00(H) 0.70 - 1.30 mg/dL LAB CHEMISTRY METHOD 02/23/2025 9:17 PM [facility] eGFR 23(L) >=60 mL/min/1. 73m2 LAB CHEMISTRY METHOD 02/23/2025 9:17 PM [facility] Comment:Calculation based on the Chronic Kidney Disease Epidemiology Collaboration (CKD-EPI) equation refit without adjustment for race. BUN/Creatinine Ratio 16.7 LAB CHEMISTRY METHOD 02/23/2025 9:17 PM [facility] Calcium 9.2 8.5 - 10.5 mg/dL LAB CHEMISTRY METHOD 02/23/2025 9:17 PM [facility] AST (SGOT) 25 10 - 42 unit/L LAB CHEMISTRY METHOD 02/23/2025 9:17 PM [facility] ALT (SGPT) 59 10 - 60 unit/L LAB CHEMISTRY METHOD 02/23/2025 9:17 PM [facility] Alkaline Phosphatase 75 42 - 121 unit/L LAB CHEMISTRY METHOD 02/23/2025 9:17 PM [facility] Total Protein 7.4 6.0 - 8.0 g/dL LAB CHEMISTRY METHOD 02/23/2025 9:17 PM EDT [facility] Albumin 3.9 3.2 - 5.0 g/dL LAB CHEMISTRY METHOD 02/23/2025 9:17 PM EDT [facility] Total Bilirubin 0.5 0.0 - 1.4 mg/dL LAB CHEMISTRY METHOD 02/23/2025 9:17 PM EDT [facility] Blood Venous blood specimen / Unknown Venipuncture / Unknown 02/23/2025 8:39 PM EDT 02/23/2025 8:51 PM EDT us Brady Wolfe MD LAB BLOOD ORDERABLES Final Resu lt Performing Organization Address [facility]/ZIP Co de Phone Number [facility] [address] [place] [address], [place] [phone] * [place] urine culture tube (02/23/2025 12:00 AM EDT) Extra Tube Hold for add-ons. 02/24/2025 12:01 AM EDT [facility] Comment:Auto resulted. Urine Urine specimen obtained by clean catch procedure / Unknown 02/23/2025 02/23/2025 10:58 PM EDT us Brady Wolfe MD LAB URINE ORDERABLES Final Resu lt Performing Organization Address [facility]/ZIP Co de Phone Number [facility] [address] [place] [address], [place] [phone] from Last 3 Months Insurance * Guarantor: Malika Foley Account Type Relation to Patient Date of Phone Billing Address Personal/Family Self [address] [place] [address] [facility] MEDIC[facility] Member Subscriber Plan / Payer (Ef fective 2022-Present) Name:MALIKA FOLEY Relation to Subscriber:Self Name:Malika Foley Payer ID:[id number] Group ID:[id number] Type:Not on file Address: [place] [address] [address] Advance Directives Documents on File Type Date Recorded Patient Belt 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
--- OUTSIDE RECORDS SUMMARY | 2025-04-12 08:53 | XMS_ITS | Encounter Summary ---
Author Organization [employer] Address [address] [facility] 7[address] [place] [address] Care Team Providers Care Data Examination Clerk Name Role Phone Sabine Bui Primary Care Provider [phone] Reason for Visit * Reason Onset Date Comments Med Refill 02/17/2025 Encounter Details Date Type Department Care Team (Late st Contact Info) Description 02/17/2025 Telephone [facility] MEDICINE [address] [place] [address] Sabine Bui FNP [address] [place], [place] [id number] Med Refill Social History Tobacco Use Types [...] 2.5 MG tablet To be sent to: [facility] - [place], [place] - [address] documented in this encounter Plan of Treatment Not on file documented as of this encounter Visit Diagnoses Not on filedocumented in this encounter Additional Health Concerns Assessment Noted Time PHQ-9 Depression Total Score: 0 12/03/19 23 10:09 AM EDT documented as of this encounter Care Teams Data Examination Clerk Relationship Specialty Start Date End Date Sabine Bui FNP [address] [place] [id number] PCP - General Family Medicine 02/24/22 documented as of this encounter
--- OUTSIDE RECORDS SUMMARY | 2025-04-12 08:53 | XMS_ITS | Encounter Summary ---
Author Organization [employer] Address [address] [place] [address] 7t [place] [address] Care Team Providers Care Retail Chain Store Area Supervisor Name Role Phone Sabine Bui Primary Care Provider [phone] Reason for Visit * Reason Onset Date Comments ER Follow-up 02/12/2023 Encounter Details Date Type Department Care Team (Late st Contact Info) Description 02/12/2023 Telephone [facility] MEDICINE [address] [place] [address] Sabine Bui FNP [address] [place] [address] ER Follow-up Social History Tobacco Use Types [...] Sent to team to attempt to obtain [facility] notes for provider review. Protocol Used: [...] to report ED visit on 02/12/23 at [facility]. Seen for leg pain and swelling (left). Patient advised will forward to team nurse for follow up. Symptom: Leg Swelling - Not From Injury Outcome: Schedule an urgent appointment (within 1 hour) or talk to a nurse or provider soon Reason: Severe leg pain now The caller accepted this outcome Patient speaks maori. documented in this encounter Plan of Treatment Not on file documented as of this encounter Visit Diagnoses Not on filedocumented in this encounter Additional Health Concerns Assessment Noted Time PHQ-9 Depression Total Score: 0 12/03/19 10:09 AM EDT documented as of this encounter Care Teams Retail Chain Store Area Supervisor Relationship Specialty Start Date End Date Sabine Bui FNP [address] [place] [address] PCP - General Family Medicine 02/24/22 documented as of this encounter
--- OUTSIDE RECORDS SUMMARY | 2025-04-12 08:53 | XMS_ITS | Encounter Summary ---
Author Organization [employer] Address [address] [facility] [address]t [place] [address] Care Team Providers Care Cold Header Operator Name Role Phone Sabine Bui ALEXANDRA Primary Care Provider [phone] Encounter Details Date Type Department Care Team (Latest Contact Info) Description 04/08/2025 Travel Social History Tobacco Use Types Packs/Day [...] documented as of this encounter Care Teams Cold Header Operator Relationship Specialty Start Date End Date Sabine Bui FNP [address] [place] [id number] PCP - General Family Medicine 02/24/22 documented as of this encounter
--- OUTSIDE RECORDS SUMMARY | 2025-04-12 08:53 | XMS_ITS | Encounter Summary ---
Author Organization [employer] Address [address] [facility] [address]t [place] [address] Care Team Providers Care Restaurant Manager Name Role Phone Sabine Bui Primary Care Provider [phone] Encounter Details Date Type Department Care Team ([facility] st Contact Info) Description 10/16/2022 Orders Only [facility] [address] [place] [address] Safia Cuba LPN Social History Tobacco Use [...] on filedocumented in this encounter Care Teams Restaurant Manager Relationship Specialty Start Date End Date Sabine Bui FNP [address] [place] [address] PCP - General Family Medicine 02/24/22 documented as of this encounter
--- OUTSIDE RECORDS SUMMARY | 2025-04-12 08:53 | XMS_ITS | Encounter Summary ---
Author Organization [employer] Address [address] [place] [address] [address] [place] [address] Care Team Providers Care Film Laboratory Technician Name Role Phone Sabine Bui Primary Care Provider [phone] Reason for Visit * Reason Onset Date Comments Appointment Request 09/26/2022 Encounter Details Date Type Department Care Team ([facility] st Contact Info) Description 09/26/2022 Telephone [facility] MEDICINE [address] [place] [address] Sabine Bui FNP [address] [place] [address] Appointment Request Social History Tobacco Use Types [...] appt with provider. Please contact pt at [phone] documented in this encounter Plan of Treatment Not on file documented as of this encounter Visit Diagnoses Not on filedocumented in this encounter Care Teams Film Laboratory Technician Relationship Specialty Start Date End Date Sabine Bui FNP [address] [place] [address] PCP - General Family Medicine 02/24/22 documented as of this encounter
--- OUTSIDE RECORDS SUMMARY | 2025-04-12 08:53 | XMS_ITS | Encounter Summary ---
Author Organization [employer] Address [address] [facility] [address] [place] [address] Care Team Providers Care Furniture Sales Consultant Name Role Phone Sabine Bui Primary Care Provider Reason for Visit * Reason Comments Med Change Request Encounter Details Date Type Department Care Team ([facility] st Contact Info) Description 10/16/2022 Refill [facility] [address] [place] [address] Mynor Ventura MD [address] [place] [address] Social History Tobacco Use Types Packs/Day Years [...] on filedocumented in this encounter Care Teams Furniture Sales Consultant Relationship Specialty Start Date End Date Sabine Bui FNP [address] [place] [address] PCP - General Family Medicine 02/24/22 documented as of this encounter
--- OUTSIDE RECORDS SUMMARY | 2025-04-12 08:53 | XMS_ITS | Encounter Summary ---
Author Organization [employer] Address [address] [place] [address] Care Team Providers Care Computing Machine Operator Name Role Phone Sabine Bui Primary Care Provider [phone] Reason for Visit * Reason Comments Med Refill Encounter Details Date Type Department Care Team ([facility] st Contact Info) Description 06/07/2024 Refill [facility] [address] [place] [address] Sabine Bui FNP [address] [place] [address] Social History Tobacco Use Types Packs/Day Years [...] documented as of this encounter Care Teams Computing Machine Operator Relationship Specialty Start Date End Date Sabine Bui FNP [address] [place] [address] PCP - General Family Medicine 02/24/22 documented as of this encounter
--- OUTSIDE RECORDS SUMMARY | 2025-04-12 08:53 | XMS_ITS | Clinical Summary ---
Author Organization [facility], Address [address] [place] [address] [place] [address] Phone Care Team Providers Care Disc Sander Name Role Phone Mynor Ventura MD Primary Care Provider [phone] Allergies No known active allergies Medications apixaban [...] AM EDT) Hemoglobin A1C 5.9 (4-6) % [place] [id number] Comment: HEMOGLOBIN A1C(%) GLUCOSE CONTROL INDEX <6% EXCELLENT 6-7% VERY GOOD 7-8% GOOD 8-10% FAIR >10% POOR Hemoglobin (Hb) A1c testing is performed by [employer]sey-quant immunoassay. Any cause of shortened erythrocyte survival will reduce exposure of erythrocytes to glucose with a consequent decrease in Hb A1c (%). Testing performed or reported by ~[facility], ~a Service of [facility], ~[address] [place] [address]~ 02/11/2019 7:21 AM EDT us Regis Cordero MD LAB BLOOD ORDERABLES Final Resul t [place] [id number] from Last 3 Months or Most Recently Relevant to Health Maintenance Insurance * Guarantor: Davis Hernandez Account Type Relation to Patient Date of Phone Billing Address Personal/Family Self 1965 [address] [place] [address] Medicare Medicaid [place] * Guarantor: Davis Hernandez Account Type Relation to Patient Date of Phone Billing Address Personal/Family Self 1965 [address] [place] [address] [facility] [employer] SNP ([id number]) [place] [id number] * Guarantor: Davis Hernandez Account Type Relation to Patient Date of Phone Billing Address Personal/Family Self 1965 [address] [place] [id number] Care Teams Disc Sander Relationship Specialty Start Date End Date Mynor Ventura MD [address] [place] [id number] PCP - General Emergency Medicine 10/31/22
--- OUTSIDE RECORDS SUMMARY | 2025-04-12 08:53 | XMS_ITS | Clinical Summary ---
Author Organization [employer] Address [address] [facility] [address] [place] [address] Care Team Providers Care Course Developer Name Role Phone Avivaapollo Sabine ALEXANDRA Primary Care Provider [phone] Allergies No known active allergies Medications tiZANidine [...] times daily. 100 each 11 024 Active albuterol 108 (90 Base) MCG/ACT inhalerIndication s:Shortness of breath Inhale 2 puffs every 6 (six) hours if needed for wheezing or shortness of breath. 18 g 3 024 Active Eliquis 2.5 MG tablet Take 2.5 mg by mouth 2 times daily. 024 Active atorvastatin (Lipitor) 20 MG tabletIndications :Other hyperlipidemia TAKE 1 TABLET BY MOUTH AT BEDTIME FOR CHOLESTEROL 90 tablet 1 024 Active amLODIPine (Norvasc) 5 MG tablet TAKE 1 TABLET BY MOUTH EVERY DAY IN THE MORNING 90 tablet 1 024 Active acetaminophen (Tylenol Extra Strength) 500 MG tabletIndications :Gout of foot, unspecified cause, unspecified chronicity, unspecified laterality Take 1-2 pills by oral route every 8 hours as needed for pain 100 tablet 1 024 Active tiZANidine (Zanaflex) 2 MG tabletIndications :Other acute back pain Take 1 tablet (2 mg) by mouth every 8 (eight) hours if needed for muscle spasms for up to 10 days. 30 tablet 025 Active lisinopril-hydroC HLOROthiazide 20-25 MG tabletIndications :Essential hypertension TAKE 1 TABLET BY MOUTH EVERY DAY IN THE MORNING 90 tablet 3 025 Active insulin glargine (Lantus SoloStar) 100 UNIT/ML penIndications:Ty pe 2 diabetes mellitus with hyperglycemia, without long-term current use of insulin ([facility]) INJECT 14 UNITS UNDER THE SKIN NIGHTLY BEFORE BED. CHECK FASTING BLOOD SUGAR READING IN THE MORNING. 3 mL 2 025 Active gabapentin (Neurontin) 100 MG capsuleIndication s:Polyneuropathy due to type 2 diabetes mellitus (HCC) Take 1 capsule (100 mg) by mouth at bedtime. 90 capsule 1 025 Active triamcinolone (Kenalog) 0.1 % cream Apply topically if needed in the morning and at bedtime for irritation or rash. Mix with ammonium lactate cream on equal parts and apply to affected area bid 80 g 1 Active ammonium lactate (Amlactin) 12 % cream Apply topically if needed for dry skin. Mix with triamcinolone cream on equal partes and apply to affected area bid 285 g 025 2025 Active omeprazole (PriLOSEC) [address] capsule TAKE 1 CAPSULE BY MOUTH EVERY DAY BEFORE BREAKFAST. DONT CRUSH OR CHEW 90 capsule 1 025 Active Tirzepatide (Mounjaro) 7.5 MG/0.5ML solution auto-injectorIndi cations:Type 2 diabetes mellitus with stage 3 chronic kidney disease, with long-term current use of insulin, unspecified whether stage 3a or 3b CKD (HCC) Inject 7.5 mg under the skin 1 (one) time per week. 2 mL 3 025 11/09/ 2025 Active allopurinol (Zyloprim) 100 MG tabletIndications :Gout of foot, unspecified cause, unspecified chronicity, unspecified laterality Take 1 tablet (100 mg) by mouth daily to help reduce gout flares 90 tablet 1 Active predniSONE (Deltasone) 20 MG tabletIndications :Gout of foot, unspecified cause, unspecified chronicity, unspecified laterality Take 1 tablet (20 mg) by mouth Once per day for 5 days. 5 tablet 025 2024 Active allopurinol (Zyloprim) 100 MG tabletIndications :Gout of foot, unspecified cause, unspecified chronicity, unspecified laterality Take 1 tablet (100 mg) by mouth daily to help reduce gout flares 90 tablet 1 025 2024 Discontinued(R eorder (will not trigger notification to Pharmacy)) metFORMIN XR (Glucophage-XR) 500 MG 24 hr tablet TAKE 1 TABLET BY MOUTH WITH EVENING MEAL. DO NOT CRUSH, CHEW, OR SPLIT. 90 tablet 1 025 2024 Discontinued(T herapy completed) Tirzepatide (Mounjaro) 5 MG/0.5ML solution auto-injectorIndi cations:Type 2 diabetes mellitus with hyperglycemia, without long-term current use of insulin (HCC) Inject 5 mg under the skin 1 (one) time per week. 2 mL 3 025 2024 Discontinued(D ose adjustment) Active Problems Problem Noted Date Diagnosed Date [...] insulin today 09/21/24 Elevated PSA 04/26/2024 Overview (04/10/2025): Lab Results Component Value Date PSA 13.69 (H) 12/23/2023 - Referred to Urology December 2023 - Encouraged to follow-up with Urology 04/26/24 - Asked nursing staff to help set him up for appointment and encouraged importance of following-up today 09/21/24. - 09/27/24 - PCP and pt called [facility] to schedule initial consult. Called outside of business hours. Pt to re-attempt this week if has not heard back. Call our office with any difficulties. - 04/10/25: re-referral to Urology Assessment & Plan (04/10/2025 8:25 PM EDT): Strongly encouraged to follow up with Urology and the concerns with elevated PSA Assessment & Plan (09/21/2024 11:03 AM EDT): [...] (12/24/2023): 10/03/23 - Stress Test completed at [facility]. Impression: Equivocal exercise stress test in the setting of EKG changes. No chest pain and no diagnostic ischemic EKG changes. No arrhythmias. Recommend further testing with nuclear imaging. Pt scheduled for Cards consult December 2023 ED precautions Routine health maintenance 11/05/2022 Assessment & Plan (12/24/2023 3:01 PM EDT): Routine Health Maintenance Optometry: referred to [facility] 12/22/23 Dental: encouraged to [...] pain Hx of lumbar spinal surgery in [place], scar well healed MRI of lumbar spine ordered 10/02/22, pending Referral to Spine and Sports for further eval ED precautions reviewed Pulmonary embolism 12/11/2021 Overview (12/22/2023): Date of PE: August 2020 Following with [facility] Last consult note: 10/09/23: Plan to cont on Eliquis 2.5mg BID Hypercoagulable workup negative Assessment & Plan (11/05/2022 6:17 PM EDT): Following with [facility], last consult appt Mar 2022. Decreased Eliquis to 2.5mg BID. Plan for follow up appt approx September 2022 to discuss discontinuation of anticoagulation. Encouraged pt to schedule follow up visit with [facility] as planned. Stage 3b chronic kidney disease (CMS/HCC) 2020 Assessment & Plan (04/10/2025 8:26 PM EDT): Following with [facility] Pt aware of need to avoid NSAIDs and maintain good hydration status Encouraged to follow up with specialist Repeat BMP ordered Assessment & Plan (12/22/2023 8:40 AM EDT): Following with [facility] Pt aware of need to avoid NSAIDs and maintain good hydration status Assessment & Plan (09/28/2023 10:28 AM EDT): Following with [facility] Pt aware of need to avoid NSAIDs and maintain good hydration status Assessment & Plan (04/08/2023 9:23 AM EDT): Following with [facility] (last consult appt in January 2023) Check CMP & microalbumin prior to appt Pt aware of need to avoid NSAIDs and maintain good hydration status Assessment & Plan (11/05/2022 6:18 PM EDT): Referred to Nephrology on 10/02/[address] [facility] visit. Reports upcoming appt February 27, 2023 to establish care Check CMP & microalbumin prior to appt Pt aware of need to avoid NSAIDs and maintain good hydration status Gout 01/28/2021 Assessment & Plan (04/10/2025 8:27 PM EDT): -Pt reports > 2 flares/year, [...] pharmacy, plan to trend uric acid levels Assessment & Plan (09/28/2024 7:21 PM EDT): [...] team. Essential hypertension 08/06/2018 Assessment & Plan (04/10/2025 8:24 PM EDT): BP goal < 140/90 mmHg Continue with lisinopril-hydrochlorothiazide 20-25mg daily Amlodipine 5mg daily Encouraged to continue with lifestyle interventions such as daily physical activity (goal 150mins weekly) and low salt diet ED precautions reviewed Assessment & Plan (12/24/2023 3:08 PM EDT): [...] Time Provider Department Center 09/11/2023 1:00 PM [facility] DAVID AGGARWAL [facility] 09/26/2023 11:15 AM ALEXANDRA Tejada [facility] Assessment & Plan (03/21/2023 5:42 AM EDT): [...] ED precautions reviewed Type 2 diabetes mellitus wit h stage 3 chronic kidney disease, with long-term current use of insulin 12/03/2017 Overview (04/10/2025): Lab Results Component Value Date HGBA1C 9.9 [...] driving, little food prep. 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 A1c currently >9%, [...] -continue lifestyle modification Intervertebral disc disorder 03/16/2013 Resolved Problems Problem Noted Date Diagnosed Date Resolved Date Chronic kidney disease 02/20/202312/21 Overview (12/22/2023): Followed by [facility] Assessment & Plan (12/22/2023 8:39 AM EDT): -Continues lisinopril-hydrochlorothiazide 20-25mg daily -Started on Vit D 2000 units daily Other proteinuria 02/20/2023 04/10/2025 Edema of lower extremity 12/03/201703/2023 Microalbuminuria 03/16/2013 04/10/2025 Encounters Date Type Department Care Team Description 04/08/2025 3:30 PM EDT Office Visit [facility] [address] [place] [address] Sabine Bui FNP Elevated PSA (Primary Dx); Type 2 diabetes mellitus with hyperglycemia, without long-term current use of insulin (HCC); Gout of foot, unspecified cause, unspecified chronicity, unspecified laterality; Dietary counseling; Exercise counseling; Stage 3b chronic kidney disease (CMS/HCC) (HCC); Type 2 diabetes mellitus with stage 3 chronic kidney disease, with long-term current use of insulin, unspecified whether stage 3a or 3b CKD (HCC); Essential hypertension 04/08/2025 Travel 04/07/2025 Telephone [facility] [address] [place] [address] Sabine Bui FNP Chart Prep 03/31/2025 Patient Outreach [facility] [address] [place] [phone] Sabine Bui FNP Pre-visit Planning (SDOH screening negative and Tobacco screening negative ) 02/23/2025 3:00 PM EDT Office Visit [facility] [address] [place] [address] Marlys Thomas NP Type 2 diabetes mellitus with hyperglycemia, without long-term current use of insulin (CMS/HCC) (Primary Dx); Dizziness; Elevated BUN; Elevated serum creatinine 02/23/2025 Orders Only [facility] [address] [place] [address] Toya Marinelli MD 02/23/2025 Travel 02/17/2025 Telephone [facility] [address] [place] [address] Sabine Bui FNP Med Refill 02/10/2025 Refill [facility] [address] [place] [address] Sabine Bui FNP Type 2 diabetes mellitus with hyperglycemia, without long-term current use of insulin ([facility]) 01/14/2025 Refill [facility] [address] [place] [address] Sabine Bui FNP from Last 3 Months Immunizations Immunization Administration [...] 16 04/08/2025 3:37 PM EDT Oxygen Saturation 98% 02/23/2025 2:10 PM EDT Inhaled Oxygen Concentration - - Weight 102 kg (225 lb) 04/08/2025 3:37 PM EDT Height 180.3 cm (5' 11 ) 04/08/2025 3:37 PM EDT Body Mass Index 31.38 04/08/2025 3:37 PM EDT Plan of Treatment Health Maintenance Due Date Last Done Comments CT Colonography 1964 Colonoscopy 1964 Colorectal Cancer Screening 1964 FIT DNA/Cologuard 1964 FIT 1964 FOBT 1964 Sigmoidoscopy 1964 Eye Exam 1974 Alcohol/Substance Use Screening 1976 Zoster Vaccines (1 of 2) 2014 Pneumococcal Vaccine: 50+ Years (2 of 2 - PCV) 02/28/2016 02/27/2015 Depression Screening 12/03/2023 12/02/2022, 12/03/19 23 RSV Patients and Patients Aged 60 years or older (1 - Risk 60-74 years 1-dose series) 2024 Diabetes: Urine Protein Screening 12/22/2024 12/23/2023, 02/20/2023, 11/05/2022, Additional history exists Lipid Panel 12/22/2024 12/23/2023, 01/24/2021 COVID-19 Vaccine (3 - season) 2025 03/27/2021, 03/06/2021 Influenza Vaccine (#1) 2025 06/29/2013 Diabetes: Hemoglobin A1C 2025 025, 08/23/2024, 04/26/2024, Additional history exists Diabetes: Foot Exam 09/21/2025 09/21/2024, Tobacco Screening 02/23/2026 02/23/2025 SDOH Screening 03/31/2026 03/31/2025 Disability Screening 04/10/2026 04/10/2025 DTaP/Tdap/Td Vaccines (3 - Td or Tdap) [...] whether stage 3a or 3b CKD (HCC) BASIC METABOLIC PANEL Routine 02/23/2025 2:48 PM EDT URINALYSIS, COMPLETE Routine 02/23/2025 2:48 PM EDT Type 2 diabetes mellitus with hyperglycemia, without long-term current use of insulin (CMS/HCC) Dizziness URIC ACID Routine 02/23/2025 2:48 PM EDT Gout of foot, unspecified cause, unspecified chronicity, unspecified laterality VITAMIN B12/FOLATE, SERUM PANEL Routine 02/23/2025 2:48 PM EDT Polyneuropathy due to type 2 diabetes mellitus (CMS/HCC) POCT GLUCOSE Routine 02/23/2025 2:12 PM EDT Type 2 diabetes mellitus with hyperglycemia, without long-term current use of insulin ([facility]/HCC) BASIC METABOLIC PANEL Routine 02/23/2025 Dizziness ALBUMIN, RANDOM URINE W/CREATININE Routine 12/23/2023 10:00 AM EDT Type 2 diabetes mellitus with hyperglycemia, without long-term current use of insulin ([facility]/HCC) HEPATITIS C VIRAL RNA, QUANTITATIVE, REAL-TIME PCR Routine 12/23/2023 9:55 AM EDT Encounter for routine history and physical examination of adult HIV 1/2 ANTIGEN/ANTIBODY, FOURTH GENERATION W/RFL Routine 12/23/2023 9:55 AM EDT Encounter for routine history and physical examination of adult LIPID PANEL, STANDARD Routine 12/23/2023 9:55 AM EDT Type 2 diabetes mellitus with hyperglycemia, without long-term current use of insulin (CMS/[facility]) from Last 3 Months or Most Recently Relevant to Health Maintenance Results * (ABNORMAL) POCT Hgb A1c (04/08/2025 3:41 PM EDT) Hemoglobin A1C 9.9(A) 4.0 - 5.7 % QC Media Lot # [id number] Lot# Expiration Date [id number] Blood 04/08/2025 3:41 PM EDT [employer] POINT OF CARE TEST ENTER/EDIT ORDERABLES Final Result * POCT Glucose (04/08/2025 3:40 PM EDT) Only the most recent of2 resultswithin the time period is included. Pathologist [facility] Glucose Blood, POC 142 60 - 200 mg/dL QC Media Lot # [id number] Lot# Expiration Date , Blood Capillary blood specimen / Unknown 04/08/2025 3:40 PM EDT [employer] POINT OF CARE TEST ENTER/EDIT ORDERABLES Final Result * Vitamin B12/Folate, Serum Panel (02/23/2025 2:48 PM EDT) Vitamin B12 381 200 - 900 pg/mL [facility] Comment:NORMAL 200-900 PG/ML INDETERMINATE 160-199 PG/ML DEFICIENT < 160 PG/ML Folate 12.6 > or = 4.0 ng/mL [facility] Comment:Reference Values:> o r = 4.0 ng/mL< 4.0 ng/mL suggests folate deficiency Methotrexate, aminopterin and folinic acid(leucovorin) are chemotherapeutic agents whose molecularstructures are similar to folate; therefore, the Architectfolate assay cannot be used for patients using these drugs. Blood Venous blood specimen / Unknown 02/23/2025 2:48 PM EDT 02/23/2025 4:23 PM EDT Sabine Bui [employer] LAB BLOOD ORDERABLES Final Res ult Performing Organization Address [facility] [[email or web address]] Co de Phone Number [facility] [address] [place] [address] [phone] * (ABNORMAL) Urinalysis Complete (02/23/2025 2:48 PM EDT) Color Urine Straw [facility] Appearance Urine Clear [facility] PH 6.0 5.0 - 9.0 [facility] Glucose Urine UA 500(A) Negative mg/dL [facility] Urine Blood Negative Negative [facility] Specific [place] - Urine 1.020 1.005 - 1.025 [facility] Urine Protein Trace Neg-Trace mg/dL [facility] Urine Ketones Negative Negative mg/dL [facility] Nitrite Urine Negative Negative [facility] Leukocyte Esterase Urine Negative Negative [facility] RBC Urine 0-2 0 - 2 /HPF [facility] Urine WBC 0-5 0 - 5 /HPF [facility] Urine Squamous Epithelial Cell 0-2 0 - 2 /HPF [facility] Urine Bacteria None Seen None Seen [facility] Hyaline Casts, Urine 0-2 0 - 2 /LPF [facility] Urine (Urine, Random) 02/23/2025 2:48 PM EDT 02/23/2025 4:27 PM EDT Marlys Thomas [employer] LAB URINE ORDERABLES Final Resu lt Performing Organization Address [facility]/ZIP Co de Phone Number [facility] [address] [place] [address] [phone] * (ABNORMAL) Uric acid (02/23/2025 2:48 PM EDT) Uric Acid 8.9(H) 3.4 - 7.0 mg/dL [facility] Blood Venous blood specimen / Unknown 02/23/2025 2:48 PM EDT 02/23/2025 4:23 PM EDT us Sabine MORRIS LAB BLOOD ORDERABLES Final Res ult Performing Organization Address [facility]/ZIP Co de Phone Number [facility] [address] [place] [phone] * (ABNORMAL) Basic Metabolic Panel (02/23/2025 2:48 PM EDT) Only the most recent of2 resultswithin the time period is included. Sodium 135 135 - 145 mmol/L [facility] Potassium 4.8 3.3 - 5.1 mmol/L [facility] Chloride 102 96 - 108 mmol/L [facility] Carbon Dioxide 25 22 - 29 mmol/L [facility] Anion Gap 13 12 - 20 [facility] Urea Nitrogen (BUN) 40(H) 9 - 16 mg/dL [facility] Creatinine, Serum 1.87(H) 0.5 - 1.4 mg/dL [facility] Estimated Glomerular Filt Rate 37 [facility] Comment:Chronic Kidney Disea se: Estimated GFR < 60 mL/min/1.82x0Vfhhbv Kidney Disease: Estimated GFR < 15 mL/min/1.73m2 Glucose 292(H) 60 - 115 mg/dL [facility] Calcium 9.5 8.4 - 10.2 mg/dL [facility] 02/23/2025 2:48 PM EDT 02/23/2025 4:23 PM EDT us Toya Marinelli MD LAB BLOOD ORDERABLES Final Result [facility] [address] [place], [place] [phone] * (ABNORMAL) Albumin, Random Urine W/Creatinine (12/23/2023 10:00 AM EDT) Creatinine, Urine 119.19 mg/dL [facility] Microalbumin Urine 140.0 mg/L [facility] Microalbum Creatinine Ratio Ur 117.4(H) <30 ug/mg cr [facility] Comment:Albumin/Creatinine R atio Reference Ranges: Normal: < 30 ug/mg creatinine Microalbuminuria: 30 - 300 ug/mg creatinineClinical Albuminuria: > 300 ug/mg creatinine Urine (Urine, Random) 12/23/2023 10:00 AM EDT 12/23/2023 11:21 AM EDT Sabine Bui [employer] LAB URINE ORDERABLES Final Res ult Performing Organization Address [facility] [[email or web address]] Co de Phone Number [facility] [address] [place] [phone] * Hepatitis C Viral RNA, Quantitative, Real-Time PCR (12/23/2023 9:55 AM EDT) Hepatitis C Viral Load <15 NOT DETECTED NOT DETECTED IU/mL [facility] HCV Log PCR <1.18 NOT DETECTED NOT DETECTED Log IU/mL [facility] Comment:For additional infor mation, please refer [email or web address]/faq/[email or web address](This link is being provided for informational/educational purposes only.)THIS TEST WAS PERFORMED AT:[facility] [place] [phone] NAZARIO MD Blood 12/23/2023 9:55 AM EDT 12/23/2023 11:20 AM EDT Sabine Bui [facility] LAB BLOOD ORDERABLES Final Res ult Performing Organization Address [facility] [[email or web address]] Co de Phone Number [facility] [address] [place] [phone] * HIV-1/2 Antigen and Antibodies, Fourth Generation, with Reflexes (12/23/2023 9:55 AM EDT) HIV AB/AG Nonreactive Nonreactive [facility] Comment:HIV-1 p24 Ag and/or HIV-1/HIV-2 Ab not detected.A test result that is nonreactive does not exclude thepossibility of exposure to or infection with HIV-1 and/orHIV-2. Nonreactive results in this assay for individualswith prior exposure to HIV-1 and/or HIV-2 may be due toantigen and antibody levels that are below the limit ofdetection of this assay.The [email or web address] HIV Ag/Ab Combo assay result andsupplemental assay results should be interpreted inconjunction with the patient's clinical presentation,history and other laboratory results. If the results areinconsistent with clinical evidence, additional testing issuggested to confirm the result. Blood Venous blood specimen / Unknown 12/23/2023 9:55 AM EDT 12/23/2023 11:20 AM EDT us Sabine Bui [employer] LAB BLOOD ORDERABLES Final Res ult [facility] [address] [place] [phone] * (ABNORMAL) Lipid Panel, Standard (12/23/2023 9:55 AM EDT) Triglycerides 215(H) <150 mg/dL [facility] Comment:Desirable Triglyceri de: less than 150 mg/dLBorderline High Triglyceride 150-199 mg/dLHigh Triglyceride: 200-499 mg/dLVery High Triglyceride: greater than or equal to 5OO mg/dL Cholesterol 167 <200 mg/dL [facility] Comment:Desirable Cholestero l: less than 200 mg/dLBorderline High Cholesterol: 200-239 mg/dLHigh Cholesterol: greater than 239 mg/dL LDL Cholesterol Calculated 91 <100 mg/dL [facility] Comment:Desirable LDL: less than 100 mg/dLNear Optimal/Above Optimal LDL: 110- 129 mg/dLBorderline High LDL: 130-159 mg/dLHigh LDL: 160-189 mg/dLVery High LDL: greater than or equal to 190 mg/dL HDL Cholesterol 33(L) >40 mg/dL [facility] Comment:Desirable HDL: great er than 40 mg/dL Note: This HDL assay may give artificially low results in patients with liver disease. Blood Venous blood specimen / Unknown 12/23/2023 9:55 AM EDT 12/23/2023 11:20 AM EDT Sabine MORRIS LAB BLOOD ORDERABLES Final Res ult Performing Organization Address City/State/[facility] [[email or web address]] Co de Phone Number [facility] [address] [place] [phone] from Last 3 Months or Most Recently Relevant to Health Maintenance Insurance [facility]ARE < [address] [place] [id number] Care Teams Course Developer Relationship Specialty Start Date End Date Sabine Bui FNP [address] [place] [phone] PCP - General Family Medicine 02/24/22
--- OUTSIDE RECORDS SUMMARY | 2025-04-12 08:53 | XMS_ITS | Encounter Summary ---
Author Organization [employer] Address [address] [place] [address] [address] [place] [address] Care Team Providers Care Weapons Electrical Engineering Officer Name Role Phone Sabine Bui Primary Care Provider [phone] Reason for Referral * Consultation (Routine) - Authorized Specialty Diagnoses / Procedures Referred By Contac t Referred To Contact Pharmacy Diagnoses Type 2 diabetes mellitus with hyperglycemia, without long-term current use of insulin (HCC) Nohemy Stephens MD [address] [place] [id number] Phone: tel: fax: Referral ID Status Reason Start Date Expiration Date Visits Requested Visits Authorized [id number] Authorized Consult and Treat 08/08/2024 08/08/2025 6 6 Scheduling Instructions [facility] CDTM program, A1C > 10% Encounter Details Date Type Department Care Team (Late st Contact Info) Description 08/08/2024 Orders Only [facility] [address] [place], [place] [phone] Nohemy Stephens MD [address] [place], [place] [phone] Type 2 diabetes mellitus with hyperglycemia, without [...] as of this encounter Plan of Treatment Scheduled Referrals Name Type Priority Associated Diagnoses Orde r Schedule Referral to Pharmacy CDTM Outpatient Referral Routine Type 2 diabetes mellitus with hyperglycemia, without long-term current use of insulin ([facility]/HCC) Ordered: 08/08/2024 documented as of this encounter Visit Diagnoses Diagnosis Type 2 diabetes mellitus with hyperglycemia, without long-term current use of insulin (HCC)- Primary documented in this encounter Additional Health Concerns Assessment Noted Time PHQ-9 Depression Total Score: 0 12/03/19 23 10:09 AM EDT documented as of this encounter Care Teams Weapons Electrical Engineering Officer Relationship Specialty Start Date End Date Sabine Bui FNP [address] [place] [address] PCP - General Family Medicine 02/24/22 documented as of this encounter
--- OUTSIDE RECORDS SUMMARY | 2025-04-12 08:53 | XMS_ITS | Encounter Summary ---
Author Organization [employer] Address [address] [facility] [address] [place] [address] Care Team Providers Care Restaurant Managing Partner Name Role Phone Kennedy Buile ALEXANDRA Primary Care Provider [phone] Encounter Details Date Type Department Care Team (Late st Contact Info) Description 08/25/2024 Orders Only [facility] [address] [place] [address] Toya Marinelli MD [address] [place] [address] Other acute back pain Social History Tobacco [...] documented as of this encounter Care Teams Restaurant Managing Partner Relationship Specialty Start Date End Date Sabine Bui FNP [address] [place] [address] PCP - General Family Medicine 02/24/22 documented as of this encounter
--- OUTSIDE RECORDS SUMMARY | 2025-04-12 08:53 | XMS_ITS | Encounter Summary ---
Author Organization [facility] Address [address] [place] [address] Phone Care Team Providers Care Knitting Machine Fixer Head Name Role Phone Mynor Ventura MD Primary Care Provider [phone] Encounter Details Date Type Department Care Team (Late st Contact Info) Description 12/18/2021 Documentation Only [facility], [address] [place] [address] Yamile Pierson, RN Social History [...] on filedocumented in this encounter Care Teams Knitting Machine Fixer Head Relationship Specialty Start Date End Date Mynor Ventura MD [address] [place] [phone] PCP - General Emergency Medicine 10/31/22 documented as of this encounter
--- OUTSIDE RECORDS SUMMARY | 2025-04-12 08:54 | XMS_ITS | Encounter Summary ---
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 Name Role Phone Sabine Bui Primary Care Provider [phone] Reason for Visit * Reason Onset Date Comments Med Refill 09/21/2024 Encounter Details Date Type Department Care Team (Late st Contact Info) Description 09/21/2024 Telephone [facility] [address] [place] [address] Sabine Bui FNP [address] [place], [place] [phone] Med Refill Social History Tobacco Use Types [...] 100 UNIT/ML pen To be sent to: [facility]/pharmacy #[id number] documented in this encounter Plan of Treatment Not on file documented as of this encounter Visit Diagnoses Not on filedocumented in this encounter Additional Health Concerns Assessment Noted Time PHQ-9 Depression Total Score: 0 12/03/19 23 10:09 AM EDT documented as of this encounter Care Teams Pick And Shovel Worker Relationship Specialty Start Date End Date Sabine Bui FNP [address] [place] [address] PCP - General Family Medicine 02/24/22 documented as of this encounter
[2025-04-12 14:22] LABS: Anion Gap 12 (12-20); Blood Urea Nitrogen 30 mg/dL (9-16); Calcium 9.2 mg/dL (8.4-10.2); Carbon Dioxide 27 mmol/L (22-29); Chloride 105 mmol/L (96-108); Cholesterol 166 mg/dL (<200); Estimated Glomerular Filt Rate 46; HDL Cholesterol 38 mg/dL (>40); Potassium 4.4 mmol/L (3.3-5.1); Sodium 140 mmol/L (135-145); Triglycerides 177 mg/dL (<150)
[2025-04-12 14:47] LABS: Prostate Specific Antigen 15.20 ng/mL (<0.05-4.0)
[2025-04-12 15:14] LABS: Microalbum/Creatinine Ratio Ur 208.2 ug/mg cr (<30)
== END 2025-04-12 08:31 | disposition home or self-care (01) ==
LOC: HO.CHCLDS 08:30
PROVIDERS: Visit Provider Registered Nurse
DX: Z12.5 Encounter for screening for malignant neoplasm of prostate (principal); E11.65 Type 2 diabetes mellitus with hyperglycemia; N18.32 Chronic kidney disease, stage 3b
CPT/HCPCS: 36415; 80048; 80061; 82043; 82570; 84153